=== PATIENT | female | born 1940 | race Caucasian/White ===

== ENCOUNTER 2017-12-13 12:05 | Inpatient (IN) | payer MEDICARE, OTHER, SELFPAY ==
[2017-12-13] VITALS (9 sets, daily range): BP systolic 132–137; BP diastolic 48–84; PULSE 83–112; RESP 18–31; TEMP 36.2–39.3; O2SAT 92–96; BMI 26.8; BMI 26.5
--- NOTE | 2017-12-13 12:09 | NURSING ---
NO OLD EKGS
--- NOTE | 2017-12-13 13:28 | EKG12_ITS ---
Test Reason : CVA Blood Pressure : / mmHG Vent. Rate : 106 BPM Atrial Rate : 106 BPM P-R Int : 156 ms QRS Dur : 120 ms QT Int : 366 ms P-R-T Axes : 067 -48 108 degrees QTc Int : 486 ms Sinus tachycardia Left axis deviation Left ventricular hypertrophy with QRS widening and repolarization abnormality Inferior infarct , age undetermined Abnormal ECG Confirmed by JAMEE MANCINI, DEMOND ([id number]), film editor supervisor FABIAN MERCADO ([id number]) on 12/17/2017 3:22:41 PM Referred By: JUANITO Confirmed By:DEMOND MANCUSO MD
--- NOTE | 2017-12-13 13:29 | CT_ITS ---
STUDY: CTA OF THE BRAIN REASON FOR EXAM: Male, 77 years old. Ataxia, slurred speech, elevated d-dimer. Fever. RADIATION DOSAGE (If Supplied By Facility): CTDIvol = ( 22.71 ) mGy, DLP = ( 1929.88 ) mGycm TECHNIQUE: CT angiography was performed with a multi-detector CT scanner. Data acquisition was obtained from the skull base through the vertex following intravenous administration of 180 ml of Isovue-300. MIP images were reconstructed from the axial data set. Post-processing of the angiographic images was performed, with multiplanar reformation and 3D reconstruction. Individualized dose optimization techniques were used for this CT. COMPARISON: None. FINDINGS: Normal bilateral petrous carotid arteries. Normal right cavernous carotid artery with a normal supraclinoid bifurcation. Normal left cavernous carotid artery with a normal supraclinoid bifurcation. Normal right A1 segments of the anterior cerebral artery. Normal left A1 segments of the anterior cerebral artery. Normal intact anterior communicating artery (ACOM). Normal bilateral A2 segments of the anterior cerebral arteries. Normal right M1 and M2 segments of the middle cerebral arteries, with a normal M1 bifurcation. Normal left M1 and M2 segments of the middle cerebral arteries, with a normal M1 bifurcation. Normal right posterior communicating artery (PCOM). Normal left posterior communicating artery (PCOM). Normal bilateral vertebral arteries. Normal basilar artery with a normal basilar bifurcation. The visualized bilateral superior cerebellar (SCA) arteries are normal. Normal bilateral P1, P2 and visualized P3 segments of the posterior cerebral arteries. There is no demonstrated aneurysm of the [facility]. There is no demonstrated abnormality of the visualized brain. IMPRESSION: Normal [facility] without a demonstrated aneurysm or hemodynamically significant stenosis. Electronically Signed: John Brock MD at 16:22 EDT , Service support , STUDY: CT BRAIN WITHOUT CONTRAST REASON FOR EXAM: Male, 77 years old. Ataxia, slurred speech, elevated d-dimer and fever. RADIATION DOSAGE (If Supplied By Facility): CTDIvol = ( 22.71 ) mGy, DLP = ( 1929.88 ) mGycm TECHNIQUE: Transaxial CT imaging of the brain was performed without administration of intravenous contrast material. Individualized dose optimization techniques were used for this CT. COMPARISON: None. FINDINGS: Normal soft tissue structures. Normal calvarium. Normal size ventricles and extra-axial spaces for the patient's age. Normal white matter tracts of the cerebral hemispheres. Normal basal ganglia and thalami. Normal brainstem. Normal cerebellum. There is no intracranial hemorrhage. There is no large vessel territory ischemia/edema. Normal visualized paranasal sinuses. CT/CTA Head W/WO Contrast IMPRESSION: No CT evident acute intracranial process. Electronically Signed: John Brock MD at 16:16 EDT , Service support ,
--- NOTE | 2017-12-13 13:29 | CT_ITS ---
Procedure: CTA of the neck vasculature. INDICATIONS: Ataxia, slurred speech, elevated d-dimer and fever. TECHNIQUE: Axial CT through the neck vascular are status post uneventful intravenous administration of iodinated contrast. Sagittal and coronal reformats and MIP images were obtained and reviewed. Individualized dose optimization techniques were used for this CT. FINDINGS: Normal 3 vessel arch and origination of the major vessels. There is no evident hemodynamically significant stenosis. No aneurysm or focal ectasia is identified. Incidental note of superior mediastinal pathologic by size adenopathy. Please refer to previously dictated, dedicated CTA of the chest. CT/CTA Neck W/WO Contrast IMPRESSION: No CT evident hemodynamically significant stenosis of carotid vasculature. No aneurysm. No focal ectasia. Electronically Signed: John Brock MD at 16:31 EDT , Service support ,
--- NOTE | 2017-12-13 13:30 | RAD_ITS ---
STUDY: X-RAY CHEST REASON FOR EXAM: Male, 77 years old. Chest pain, fever, slurred speech. TECHNIQUE: Single portable frontal chest. COMPARISON: None. FINDINGS: There is elevation of the right hemidiaphragm of indeterminate chronicity and etiology and of unknown clinical concern. There is prominent multifocal alveolar opacification within the left perihilar location and throughout the left mid lung and left lung base. There is also subtle alveolar opacification within the right medial infrahilar location. There is no evident pneumothorax. There is subtle blunting of the left lateral costophrenic angle. There is moderate cardiac enlargement. Normal visualized pulmonary arteries. Normal visualized aortic arch and descending thoracic aorta. There is diffuse osteopenia without evident acute osseous abnormality. There is no demonstrated abnormality of the visualized soft tissue structures of the upper abdomen. RAD/Chest 1 View (Portable) IMPRESSION: Multifocal bilateral alveolar opacifications consistent with foci of pneumonia and or atelectasis. Potential small left basilar pleural effusion. No pneumothorax. Moderate cardiomegaly versus pericardial fluid collection. Upon further review, findings throughout predominantly lung apices suggesting emphysema. Status post cholecystectomy. Electronically Signed: John Brock MD at 14:18 EDT , Service support ,
--- NOTE | 2017-12-13 13:33 | ED.DCSUM_ITS ---
- ER Visit Summary Date of Service: 12/13/17 Chief Complaint: [] Ataxic gait mild shortness of breath History of Present Illness: The patient is a 77 M [] she reports for the last 2 days she simply cannot walk in a straight fashion she is constantly listing from one side to the other, she indicates that she has had no headache no fever no cough no chest pain or abdominal pain or shortness of breath no numbness paresthesias her symptoms intensified today with a difficulty walking she went to an urgent care center who referred her to the emergency department On arrival to the emergency department she is noted to have a temperature 100.4 her pulse ox is 90% on room air and she declined history of fever COPD asthma DVT PE ME or any cardiopulmonary disease, she is on no medications she had no exposures Physical Examination: [] Her vital signs are as above her blood pressures within normal range she is resting comfortably in the bed her pulse ox is 90% on room air but 94% on 2 L of oxygen her HEENT exam and cranial nerve exam unremarkable the neck is supple the lungs sound clear the heart tones are normal the abdomen soft nontender upper lower extremities unremarkable she has normal strength normal sensation normal cerebellar function to finger-nose [id number], I was a ble to stand her when she stood she was quite ataxic she could not walk but was able to maintain upright position her NIH is 0 Test Results: [] Emergency Department Course and Treatment: [] Does have a fever she has hypoxia on room air given the ataxia in all the above screening labs head CT CTA will be obtained Treatment Plan: [] The patient's CBC chemistry panels are generally unremarkable, her lactate is pending, her chest x-ray shows per radiology signs of cardiomegaly, elevated right hemidiaphragm, possibly bibasilar infiltrates right greater than left and possibly small left pleural effusion, Given the constellation of her symptoms the ataxia hypoxemia low-grade fever, I did order CT head and neck CTA chest, the studies are pending, I have asked the afternoon physicians to check these and arrange for disposition, we did obtain blood and urine cultures and we did start her on IV antibiotics Rocephin and azithromycin she understands need for admission and she agrees Disposition: [] Admit pending results of CT scans Impression: [] Ataxia, bibasilar pneumonia, hypoxemia room air This note was generated with [employer] dictation software. It may contain incorrect words, spelling, and punctuation that were not noted in review of the chart prior to signing ED Disposition - Plan for ED Patient: Chief Complaint: Neuro S/Sx Referrals: Chauncey Lu DO [Primary Care Provider] -
[2017-12-13 13:49] LABS: Absolute Lymphocyte Count 0.94 X10^3/ul (0.83-4.51); Absolute Neutrophil Count 5.7 X10^3/uL (2.0-7.7); Basophil# 0.02 X10^3/uL; Basophil% 0.3 % (0-1); Hematocrit 43.6 % (40-54); Hemoglobin 14.3 g/dl (13.0-16.5); Lymphocyte # 0.94 X10^3/ul (4.0); Lymphocyte % 12.5 % (19-41); Mean Corp Hgb Conc 32.8 g/gl (32-36); Mean Corpuscular Hgb 28.9 pg (27.0-32.0); Mean Corpuscular Volume 88.1 fL (80-94); Mean Platelet Vol. 10.6 fl (6.2-12.0); Monocyte# 0.91 X10^3/uL; Monocyte% 12.1 % (0-10); Neutrophil # 5.66 X10^3/uL (2.7-7.7); Neutrophil % 75.1 % (47-70); Platelet Count 133 K/mm3 (150-450); RBC Distribution Width SD 45.2 fl (35.1-43.9); Red Blood Count 4.95 M/mm3 (4.6-6.2); White Blood Count 7.5 K/mm3 (4.4-11.0)
[2017-12-13 14:00] LABS: D-Dimer Quantitative (DVT/PE) 1.43 FEU/ug/m (0.27-0.49)
[2017-12-13 14:01] LABS: Anion Gap 9 (5-15); BUN 14 mg/dL (7-18); BUN/Creat Ratio 17.7 RATIO (10-20); Calcium,Total 8.3 mg/dL (8.5-10.1); Chloride 101 mmol/L (98-107); Creatinine, Serum 0.79 mg/dL (0.70-1.30); EST Glomerular Filtration Rate 101 mL/min (>60); Est Glom Filt Rate - Afr Amer 122 mL/min (>60); Estimated Creatinine Clearance 50.58 ml/min; Glucose 114 mg/dL (74-106); Potassium 3.5 mmol/L (3.5-5.1); Sodium Level 133 mmol/L (136-145)
--- NOTE | 2017-12-13 14:02 | ED.RN ---
ddimer 1.[address] called from the lab. dr bacayeed aware
[2017-12-13] MEDS: 0.9% Normal Saline 1,000 ML 15 ML IV (14:21)
--- NOTE | 2017-12-13 14:29 | CT_ITS ---
STUDY: CTA CHEST REASON FOR EXAM: Male, 77 years old. Ataxia, slurred speech, elevated d-dimer and fever. RADIATION DOSAGE (If Supplied By Facility): CTDIvol = ( 22.71 ) mGy, DLP = ( 1929.88 ) mGycm TECHNIQUE: The examination was performed with the intravenous administration of 100mL ml of Isovue 370 contrast material. Post-processing of the angiographic images was performed, with multiplanar reformation and 3D reconstruction. Individualized dose optimization techniques were used for this CT. COMPARISON: None. FINDINGS: Normal enhancement of the main pulmonary artery and right and left pulmonary arteries out to third order branching. Normal thoracic aorta and visualized great vessels. There is no demonstrated aortic dissection. Normal heart and pericardium. There are multistation mediastinal lymph nodes. Lymph nodes within the retrocaval-pretracheal location, aorticopulmonary window region and precarinal region are mildly pathologic by size criteria. There are borderline pathologic by size criteria left hilar lymph nodes. Normal visualized trachea and bronchi. There are dense perihilar consolidations potentially representing pneumonia and/or some component of atelectasis. The left perihilar consolidation does appear somewhat mass-like. There is no pleural effusion. There is no pneumothorax. Normal osseous structures. Throughout visualized upper abdomen there are findings consistent with mild bilateral adrenal hyperplasia and a 1.8 cm probable complicated right renal cortical cyst. Definitive characterization can be performed with sonography if felt clinically indicated. CT/CTA Chest W/WO Contrast IMPRESSION: No CT evidence of pulmonary embolism out to third order branching. No demonstrated vascular dissection. Dense perihilar consolidations with somewhat mass-like appearance to the left perihilar consolidation. Follow-up to exclude neoplasm highly recommended. Mildly pathologic by size criteria mediastinal and left hilar lymph nodes. These may simply be reactive. However, follow-up again recommended to assess stability. No pleural effusion. No pneumothorax. Electronically Signed: John Brock MD at 16:10 EDT , Service support ,
[2017-12-13] MEDS: Ipratropium/Albuterol Sulfate 3 ML AMPUL.NEB INHALATION ×2 (15:27→20:21)
[2017-12-13 16:03] LABS: Lactic Acid 0.9 mmol/L (0.4-2.0)
[2017-12-13] MEDS: Acetaminophen 325 MG Tablet 650 MG PO (16:31)
--- NOTE | 2017-12-13 16:38 | NURSING ---
MED SURG OLEE PNEUMONIA, HYPOXIA
--- NOTE | 2017-12-13 17:29 | PCM.HP.STD ---
Problem List (1) Pneumonia Status: Acute Qualifiers: Pneumonia type: due to unspecified organism Laterality: left Lung location: lower lobe of lung Qualified Code(s): J18.1 - Lobar pneumonia, unspecified organism History of Present Illness Date of Admission: 12/13/17 Chief Complaint: cough, malaise and SOB The patient is a 77 year old female who presents with 1 week h/o of feeling unwell. Over the last few days this has progressively worsened with increasing exertional dyspnea and easy fatigability and impaired exercise tolerance. At this time she is dyspneic and SOB even at rest. She has had a dry non productive cough, fever, malaise, loss of appetite. She denies any chest pain, denies any ill contacts or recent travel. has a pet dog and other than that no exposure to any farm animals. Patient does not not smoke however smoked in the past. Also for the last few days patient has been experiencing ataxia of gait and has had increasingly difficulty with walking. She denies any slurring of speech, dysphagia, diplopia, blurring of vision, extremity weakness or numbness[] Past Medical History Allergies No Known Allergies Allergy (Verified 12/13/17 12:11) Home Medications: Ambulatory Orders Medication Instructions Recorded Ranitidine [Zantac] 300 mg PO DAILY 12/13/17 Smoking Status: Never smoker Tobacco Use: Non-smoker Review of Systems Constitutional: Reports: Anorexia, Chills, Fever, Night Sweats, Malaise, Weakness, Fatigue Cardiovascular: Denies: Chest Pain, Claudication, Edema, Orthopnea, Syncope Gastrointestinal: Denies: Abdominal Pain Genitourinary: Reports: Frequency, Incontinence, Urgency Neurological: Reports: Balance problems. Denies: Blurred vision, Double vision, Change in Speech, Slurred speech, Confusion, Difficulty swallowing, Focal weakness, Headaches, Incoordination, Numbness, Tremor, Seizures Psychiatric: Denies: Anxiety Comment: all other systems reviewed and are negative VTE Information - Inpt Only VTE Present on Admission: No Patient Problems: Active and Suspected Problems Pneumonia (Acute) - Physical Exam General: Alert, Oriented x3, Cooperative, - - acutely ill looking, dyspneic HEENT: Atraumatic, Normocephalic Oral: Dry Mucosa Neck: Supple, No JVD, No Nodes Lungs: - - reduced chest expansion on the left, lower zone anteriorly is significantly reduced breath sounds and air entry, there is a fixed expiratory wheeze/rhonchi in this segment as well, vocal fremitus here is reduced as well Cardiovascular: Regular rate, Regular Rhythm, Normal S1, Normal S2, No murmurs, No Ectopic Activity Abdomen: Bowel Sounds Present, Soft, Non Tender, Non-Distended, No Hepato-splenomegaly Skin: No rashes Musculoskeletal: No Muscle Wasting Lymphatic: No Cervical, Supraclavicular, or Inguinal Adenopathy Neurological: Cranial nerves II-XII grossly intact, Motor Exam 5/5 strength throughout, - - gait not tested at this time, dysmetria positive in the LUE, impaired finger to nose and heel to patel testing on the left, has dysdiadokhokinesia worse on the left, DTR increased in the LUE Psych/Mental Status: Normal Affect, Appropriate, Alert and oriented to time, place, person, mood and affect Vital Signs Temp Pulse Resp BP Pulse Ox 102.7 F H 95 31 H 135/49 H 95 12/13/17 16:30 12/13/17 16:30 12/13/17 16:30 12/13/17 16:30 12/13/17 16:30 Oxygen Flow Rate (L/min) 2 Oxygen Delivery Method Nasal Cannula Weight: 68.674 kg Body Mass Index (BMI) 26.8 Laboratory Tests Past 24 Hrs 12/13/17 12/13/17 12/13/17 12:13 12:13 12:13 WBC 7.5 RBC 4.95 Hgb 14.3 Hct 43.6 MCV 88.1 MCH 28.9 MCHC 32.8 RDW 14.0 RDW Differential 45.2 H Plt Count 133 L MPV 10.6 Immature Gran % (Auto) 0.000 Neut % (Auto) 75.1 H Lymph % (Auto) 12.5 L [place] % (Auto) 12.1 H Eos % (Auto) 0.0 Baso % (Auto) 0.3 Absolute Neuts (auto) 5.7 Absolute Lymphs (auto) 0.94 Total Counted Not Reportable D-Dimer Quant (PE/DVT) 1.43 H* Sodium 133 L Potassium 3.5 Chloride 101 Carbon Dioxide 23.0 Anion Gap 9 BUN 14 Creatinine 0.79 Estim Creat Clear Calc 50.58 Est GFR (MDRD) Af Amer 122 Est GFR (MDRD) Non-Af 101 BUN/Creatinine Ratio 17.7 Glucose 114 H Lactic Acid Calcium 8.3 L Troponin I < 0.015 B-Natriuretic Peptide 12/13/17 12/13/17 12:13 15:26 WBC RBC Hgb Hct MCV MCH MCHC RDW RDW Differential Plt Count MPV Immature Gran % (Auto) Neut % (Auto) Lymph % (Auto) [place] % (Auto) Eos % (Auto) Baso % (Auto) Absolute Neuts (auto) Absolute Lymphs (auto) Total Counted D-Dimer Quant (PE/DVT) Sodium Potassium Chloride Carbon Dioxide Anion Gap BUN Creatinine Estim Creat Clear Calc Est GFR (MDRD) Af Amer Est GFR (MDRD) Non-Af BUN/Creatinine Ratio Glucose Lactic Acid 0.9 Calcium Troponin I B-Natriuretic Peptide 143.0 H Assessment/Plan All Active Problems Pneumonia (Acute) 1. Possible Community Acquired Bacterial Pneumonia. I am concerned however based on clinical and exam findings and CT chest radiological findings that there may actually be an endobronchial obstruction causing atelectasis/collapse of a left segmental lobe - focal reduced BS, reduced vocal fremitus, focal fixed monophonic wheezing/rhonchi, consolidation on CT without air bronchograms. Will consult pulmonology. I believe we should have a lower threshold for bronchoscopy in this patient. Will continue on IV antibiotics for now, check sed rate, CRP and procalcitonin. Mucolytics, bronchodilators, ? chest physiotherapy 2. New onset cerebellar symptoms with ataxia and incoordination. Uncertain if related to # 1 above. Will order brain MRI with and without contrast Consult neurology. 3. Acute hypoxic respiratory failure secondary to # 1 above Continue supplemental O2. Pulmonology to evaluate Code Visit Inpatient E&M: 99151 Init Hosp L3
[2017-12-13 18:40] LABS: Mucous, Urine 0 SEEN /hpf (<or=2+); Red Blood Cells-Urine 0 SEEN /hpf (0-5)
[2017-12-13 18:43] LABS: Color, Urine Yellow (Yellow); Glucose, Dipstick Normal (Normal); Ketone-Dipstick 5 mg/dl (Negative); Leukocyte Esterase-Dipstick 25 /ul (Negative); Nitrite-Dipstick Positive (Negative); Occult Blood-Urine 150 /ul (Negative); Protein-Dipstick 30 mg/dl (Negative); Urine Bilirubin Dipstick Negative (Negative); Urine Clarity Clear (Clear); Urine Urobilinogen Normal (Normal)
--- NOTE | 2017-12-13 18:49 | MRI_ITS ---
STUDY: MRI BRAIN WITH AND WITHOUT CONTRAST REASON FOR EXAM: Male, 77 years old. CVA, unsteady gait. TECHNIQUE: Standardized multiplanar fat and water weighted pulse sequences were obtained. 7 ml of Gadavist contrast material was administered intravenously for the contrast portion of the examination. COMPARISON: CTA head 12/13/2017. FINDINGS: There is mild cerebral atrophy with widening of the extra-axial spaces and ventricular dilatation. Normal white matter tracts of the supratentorial brain. Normal bilateral basal ganglia. Normal thalami. There is no extra-axial fluid accumulation. Normal flow voids within the major intracranial circulation suggesting patency by spin echo criteria. There is no enhancing intra-axial or extra-axial abnormality. Normal sella turcica, pituitary gland, infundibular stalk, optic chiasm and hypothalamus. Normal tectal plate and pineal gland. Normal midbrain, donnie and medulla. Normal cerebellum. Normal basal cisterns. Normal bilateral temporal bones. Normal bilateral internal auditory canals. No demonstrated orbital abnormality, within the constraints of a routine brain study. Normal visualized paranasal sinuses. Normal calvarium and skull base. Normal visualized soft tissue structures. Normal visualized upper cervical spine. MRI/Brain W/WO Contrast IMPRESSION: Normal unenhanced and enhanced MRI of the brain. Electronically Signed: Laila Crabtree MD at 20:46 EDT Tel , Service support ,
[2017-12-13 18:52] LABS: Bacteria 1+ /hpf (None Seen); Squamous Epithelial Cells - UA 0-5 SEEN /hpf (0-5); White Blood Cells 0-5 SEEN /hpf (0-5)
--- NOTE | 2017-12-13 20:14 | NURSING ---
PATIENT RETURNED FROM MRI NOW.
[2017-12-13] MEDS: Acetylcysteine 800 MG/4 ML VIAL.NEB. 400 MG INHALATION (20:21)
[2017-12-13 20:33] LABS: Erythrocyte Sedimentation Rate 11 mm/hr (0-20)
[2017-12-13] MEDS: guaiFENesin 1,200 MG Tablet 1200 MG PO (21:05)
[2017-12-14] VITALS (21 sets, daily range): BP systolic 123–154; BP diastolic 53–75; PULSE 89–134; RESP 20–30; TEMP 36.4–38.8; O2SAT 93–96
[2017-12-14] MEDS: Ipratropium/Albuterol Sulfate 3 ML AMPUL.NEB INHALATION ×4 (01:29→19:36)
[2017-12-14] MEDS: Acetylcysteine 800 MG/4 ML VIAL.NEB. 400 MG INHALATION ×3 (01:29→14:20)
--- NOTE | 2017-12-14 01:29 | CPS ---
Pt seemed to have a panic attack from aerosol mask. Increased HR and RR. Pt calmed down after treatment was finished. Mouthpiece to be used.
[2017-12-14] MEDS: LORazepam 1 MG Tablet PO (03:33)
[2017-12-14 05:27] LABS: Absolute Lymphocyte Count 0.67 X10^3/ul (0.83-4.51); Absolute Neutrophil Count 6.1 X10^3/uL (2.0-7.7); Basophil# 0.02 X10^3/uL; Basophil% 0.3 % (0-1); Hematocrit 41.5 % (37-47); Hemoglobin 13.5 g/dl (12.0-15.0); Lymphocyte # 0.67 X10^3/ul (4.0); Mean Corp Hgb Conc 32.5 g/gl (32-36); Mean Corpuscular Hgb 28.7 pg (27.0-32.0); Mean Corpuscular Volume 88.3 fL (81-99); Mean Platelet Vol. 10.2 fl (6.2-12.0); Monocyte# 0.71 X10^3/uL; Monocyte% 9.5 % (0-10); Neutrophil # 6.07 X10^3/uL (2.7-7.7); Neutrophil % 81.1 % (47-70); Platelet Count 121 K/mm3 (150-450); RBC Distribution Width SD 45.6 fl (35.1-43.9); White Blood Count 7.5 K/mm3 (4.4-11.0)
[2017-12-14 05:38] LABS: POSITIVE COUNT NO; POSITIVE DIFFERENTIAL NO; POSITIVE MORPHOLOGY NO
--- NOTE | 2017-12-14 08:10 | PCM.CONS.GEN ---
Reason for Consult Date of Consultation: 12/14/17 Reason for Consultation: Left segmental lobar collapse, possible endobronchial obstruction History of Present Illness: The patient is a 77-year-old female, with a history as outlined below, who presented to the emergency department on December 13 with ataxia and shortness of breath and cough. The patient reports that her cough is worsened over the last several days, and although it is moist in quality, she has been unable to produce any sputum. She denies a history of hemoptysis. She denies a personal history of smoking, but does report lifelong secondhand smoke exposure. The patient does report that over the days leading up to her hospitalization, she has been unstable on her feet with frequent coughing paroxysms. She does report a loss in appetite, but there has been no significant weight loss. On presentation to the emergency department, the patient was noted to be febrile, tachycardic and tachypneic. Laboratory evaluation revealed no evidence of a leukocytosis. She had an elevated d-dimer at 1.43. Chemistry profile was largely unremarkable. Serum lactate was within normal limits. Troponin was negative. Urinalysis was positive for nitrites and leukocyte esterase with 1+ bacteria noted. CTA head and neck was completed and revealed no significant pathology. Due to the patient's shortness of breath, a CTA chest was obtained which revealed no evidence for pulmonary embolism. Multiple mediastinal lymph nodes were identified with borderline size criteria. There is also evidence of a left perihilar consolidation with possible associated atelectasis. The patient was subsequently started on ceftriaxone and azithromycin. She was admitted to the progressive care unit for ongoing management. Last evening, the patient did spike a fever to 102.7 ?F. However, at the present time, she is afebrile. Past Medical History Past Medical History (Chronic Problems): Chronic Problems Balance problem (Chronic) Allergies No Known Allergies Allergy (Verified 12/13/17 12:11) Home Medications: Ambulatory Orders Medication Instructions Recorded Ranitidine [Zantac] 300 mg PO DAILY 12/13/17 Smoking Status: Never smoker Tobacco Use: Non-smoker Review of Systems Constitutional: Reports: Malaise, Weakness, Fatigue Eyes: Denies: Blurred vision, Double vision HEENT: Denies: Head Aches, Sinus Congestion, Sinus Drainage Cardiovascular: Denies: Chest Pain, Palpitations Respiratory: Reports: Cough, Shortness of Breath. Denies: Sputum production Gastrointestinal: Denies: Abdominal Pain, Nausea, Vomiting Genitourinary: Denies: Dysuria Skin: Denies: Rash, Wounds Neurological: Reports: Balance problems Psychiatric: Denies: Anxiety, Depression, Homicidal Ideations, Suicidal Ideations Hematologic/ Lymphatic: Reports: Adenopathy Patient Problems: Active and Suspected Problems Pneumonia (Acute) Objective: The patient's most recent lab work, culture data and imaging studies have all been personally reviewed. - Physical Exam General: Alert, Cooperative, No apparent distress HEENT: Atraumatic, PERRLA, Normocephalic Oral: No Gingival or Mucosal Lesions/ Ulcerations Neck: Supple, No Nodes, Trachea Midline Lungs: - - Scant rhonchi with frequent coughing paroxysms and associated expiratory wheeze. Cardiovascular: Regular rate, Regular Rhythm, Normal S1, Normal S2, No murmurs Abdomen: Bowel Sounds Present, Soft, Non Tender, Non-Distended Extremities: No clubbing, No cyanosis, No edema Skin: No breakdown Musculoskeletal: No Tenderness to Palpation of Joints or Extremities Lymphatic: No Cervical, Supraclavicular, or Inguinal Adenopathy Neurological: Cranial nerves II-XII grossly intact, Neuro grossly intact Psych/Mental Status: Normal Affect, Appropriate Vital Signs Temp Pulse Resp BP Pulse Ox 97.9 F 97 28 H 123/54 H 96 12/14/17 06:57 12/14/17 06:58 12/14/17 06:57 12/14/17 06:57 12/14/17 06:57 Oxygen Flow Rate (L/min) 2 Oxygen Delivery Method Nasal Cannula Weight: 149 lb 11.102 oz Body Mass Index (BMI) 26.5 Intake and Output for Last 24 Hours 12/12/17 12/13/17 12/14/17 23:59 23:59 23:59 Intake Total 520 / 520 Balance 520 / 520 Laboratory Tests Past 24 Hrs 12/13/17 12/13/17 12/13/17 12:13 12:13 12:13 WBC 7.5 RBC 4.95 Hgb 14.3 Hct 43.6 MCV 88.1 MCH 28.9 MCHC 32.8 RDW 14.0 RDW Differential 45.2 H Plt Count 133 L MPV 10.6 Immature Gran % (Auto) 0.000 Neut % (Auto) 75.1 H Lymph % (Auto) 12.5 L [place] % (Auto) 12.1 H Eos % (Auto) 0.0 Baso % (Auto) 0.3 Absolute Neuts (auto) 5.7 Absolute Lymphs (auto) 0.94 Total Counted Not Reportable ESR D-Dimer Quant (PE/DVT) 1.43 H* Sodium 133 L Potassium 3.5 Chloride 101 Carbon Dioxide 23.0 Anion Gap 9 BUN 14 Creatinine 0.79 Estim Creat Clear Calc 50.58 Est GFR (MDRD) Af Amer 122 Est GFR (MDRD) Non-Af 101 BUN/Creatinine Ratio 17.7 Glucose 114 H Lactic Acid Calcium 8.3 L Troponin I < 0.015 C-React Prot Ext Range B-Natriuretic Peptide Urine Color Urine Clarity Urine pH Ur Specific [place] Urine Protein Urine Glucose (UA) Urine Ketones Urine Occult Blood Urine Nitrite Urine Bilirubin Urine Urobilinogen Ur Leukocyte Esterase Urine RBC Urine WBC Ur Squamous Epith Cells Urine Bacteria Urine Mucus Miscellaneous Test 12/13/17 12/13/17 12/13/17 12:13 12:13 15:26 WBC RBC Hgb Hct MCV MCH MCHC RDW RDW Differential Plt Count MPV Immature Gran % (Auto) Neut % (Auto) Lymph % (Auto) [place] % (Auto) Eos % (Auto) Baso % (Auto) Absolute Neuts (auto) Absolute Lymphs (auto) Total Counted ESR D-Dimer Quant (PE/DVT) Sodium Potassium Chloride Carbon Dioxide Anion Gap BUN Creatinine Estim Creat Clear Calc Est GFR (MDRD) Af Amer Est GFR (MDRD) Non-Af BUN/Creatinine Ratio Glucose Lactic Acid 0.9 Calcium Troponin I C-React Prot Ext Range 83.90 H B-Natriuretic Peptide 143.0 H Urine Color Urine Clarity Urine pH Ur Specific [place] Urine Protein Urine Glucose (UA) Urine Ketones Urine Occult Blood Urine Nitrite Urine Bilirubin Urine Urobilinogen Ur Leukocyte Esterase Urine RBC Urine WBC Ur Squamous Epith Cells Urine Bacteria Urine Mucus Miscellaneous Test 12/13/17 12/13/17 12/13/17 18:34 20:20 20:20 WBC RBC Hgb Hct MCV MCH MCHC RDW RDW Differential Plt Count MPV Immature Gran % (Auto) Neut % (Auto) Lymph % (Auto) [place] % (Auto) Eos % (Auto) Baso % (Auto) Absolute Neuts (auto) Absolute Lymphs (auto) Total Counted ESR 11 D-Dimer Quant (PE/DVT) Sodium Potassium Chloride Carbon Dioxide Anion Gap BUN Creatinine Estim Creat Clear Calc Est GFR (MDRD) Af Amer Est GFR (MDRD) Non-Af BUN/Creatinine Ratio Glucose Lactic Acid Calcium Troponin I C-React Prot Ext Range B-Natriuretic Peptide Urine Color Yellow Urine Clarity Clear Urine pH 5.0 Ur Specific [place] 1.010 Urine Protein 30 H Urine Glucose (UA) Normal Urine Ketones 5 H Urine Occult Blood 150 H Urine Nitrite Positive H Urine Bilirubin Negative Urine Urobilinogen Normal Ur Leukocyte Esterase 25 H Urine RBC 0 SEEN Urine WBC 0-5 SEEN Ur Squamous Epith Cells 0-5 SEEN Urine Bacteria 1+ Urine Mucus 0 SEEN Miscellaneous Test Pending 12/14/17 05:10 WBC 7.5 RBC 4.70 Hgb 13.5 Hct 41.5 MCV 88.3 MCH 28.7 MCHC 32.5 RDW 14.0 RDW Differential 45.6 H Plt Count 121 L MPV 10.2 Immature Gran % (Auto) 0.100 Neut % (Auto) 81.1 H Lymph % (Auto) 9.0 L [place] % (Auto) 9.5 Eos % (Auto) 0.0 Baso % (Auto) 0.3 Absolute Neuts (auto) 6.1 Absolute Lymphs (auto) 0.67 L Total Counted Not Reportable ESR D-Dimer Quant (PE/DVT) Sodium Potassium Chloride Carbon Dioxide Anion Gap BUN Creatinine Estim Creat Clear Calc Est GFR (MDRD) Af Amer Est GFR (MDRD) Non-Af BUN/Creatinine Ratio Glucose Lactic Acid Calcium Troponin I C-React Prot Ext Range B-Natriuretic Peptide Urine Color Urine Clarity Urine pH Ur Specific [place] Urine Protein Urine Glucose (UA) Urine Ketones Urine Occult Blood Urine Nitrite Urine Bilirubin Urine Urobilinogen Ur Leukocyte Esterase Urine RBC Urine WBC Ur Squamous Epith Cells Urine Bacteria Urine Mucus Miscellaneous Test Clinical Impression(s) from Imaging Studies Head CTA 12/13/17 13:29 IMPRESSION: No CT evident acute intracranial process. Electronically Signed: John Brock MD at 16:16 EDT , Service support , Neck CTA 12/13/17 13:29 IMPRESSION: No CT evident hemodynamically significant stenosis of carotid vasculature. No aneurysm. No focal ectasia. Electronically Signed: John Brock MD at 16:31 EDT , Service support , Chest X-Ray 12/13/17 13:30 IMPRESSION: Multifocal bilateral alveolar opacifications consistent with foci of pneumonia and or atelectasis. Potential small left basilar pleural effusion. No pneumothorax. Moderate cardiomegaly versus pericardial fluid collection. Upon further review, findings throughout predominantly lung apices suggesting emphysema. Status post cholecystectomy. Electronically Signed: John Brock MD at 14:18 EDT , Service support , Chest CTA 12/13/17 14:29 IMPRESSION: No CT evidence of pulmonary embolism out to third order branching. No demonstrated vascular dissection. Dense perihilar consolidations with somewhat mass-like appearance to the left perihilar consolidation. Follow-up to exclude neoplasm highly recommended. Mildly pathologic by size criteria mediastinal and left hilar lymph nodes. These may simply be reactive. However, follow-up again recommended to assess stability. No pleural effusion. No pneumothorax. Electronically Signed: John Brock MD at 16:10 EDT , Service support , Brain MRI 12/13/17 18:49 IMPRESSION: Normal unenhanced and enhanced MRI of the brain. Electronically Signed: Laila Crabtree MD at 20:46 EDT Tel , Service support , Assessment/Plan All Active Problems Pneumonia (Acute) RECOMMENDATIONS: 1. Agree with antibiotics, pending infectious workup. 2. Check respiratory viral panel, along with strep and urine Legionella antigens. 3. We will add chest physiotherapy/PEP in hopes that this will assist the patient in expectorating sputum, which should be sent for culture. 4. Wean supplemental oxygen to maintain saturations at or above 90%. 5. There is no indication for emergent bronchoscopy. Recommend that the patient complete a treatment course of antibiotics, after which time, a repeat CT chest should be obtained in approximately 6 weeks. If there is continued radiographic abnormality noted in the left hilar region, would then proceed with bronchoscopy. IMPRESSIONS: 1. Acute hypoxic respiratory insufficiency Likely secondary to underlying pulmonary infectious process. The patient presented with a fever and has had a new/worsening cough, raising the concern for community-acquired pneumonia. She is currently on appropriate antibiotics. We will also plan to check a strep and urine Legionella antigen, along with a full respiratory viral panel. Will add chest physiotherapy in hopes that this will assist the patient in expectorating sputum, which I recommend should be sent for culture. Continue to wean supplemental oxygen to maintain saturations at or above 90%. 2. Left perihilar community-acquired pneumonia/nonspecific mediastinal lymphadenopathy The radiographic findings noted on CT chest could certainly be vaccine customer representative of an underlying pulmonary infectious process, for which the patient is currently on treatment. Would recommend repeating a CT chest in approximately 4-6 weeks to document resolution. If the patient continues to have the aforementioned radiographic abnormalities, would then consider bronchoscopy at that time. 3. Ataxia Of unclear etiology. MRI brain revealed no pathology. Neurology is to evaluate patient. This note was generated with [employer] dictation software. It may contain incorrect words, spelling, and punctuation that were not noted in checking the note before signing. Code Visit Inpatient E&M: 44577 Init Hosp L3
--- NOTE | 2017-12-14 08:25 | CON.PCM_ITS ---
Reason for Consult Date of Consultation: 12/14/17 Reason for Consultation: Left segmental lobar collapse, possible endobronchial obstruction History of Present Illness: The patient is a 77-year-old female, with a history as outlined below, who presented to the emergency department on December 13 with ataxia and shortness of breath and cough. The patient reports that her cough is worsened over the last several days, and although it is moist in quality, she has been unable to produce any sputum. She denies a history of hemoptysis. She denies a personal history of smoking, but does report lifelong secondhand smoke exposure. The patient does report that over the days leading up to her hospitalization, she has been unstable on her feet with frequent coughing paroxysms. She does report a loss in appetite, but there has been no significant weight loss. On presentation to the emergency department, the patient was noted to be febrile, tachycardic and tachypneic. Laboratory evaluation revealed no evidence of a leukocytosis. She had an elevated d-dimer at 1.43. Chemistry profile was largely unremarkable. Serum lactate was within normal limits. Troponin was negative. Urinalysis was positive for nitrites and leukocyte esterase with 1+ bacteria noted. CTA head and neck was completed and revealed no significant pathology. Due to the patient's shortness of breath, a CTA chest was obtained which revealed no evidence for pulmonary embolism. Multiple mediastinal lymph nodes were identified with borderline size criteria. There is also evidence of a left perihilar consolidation with possible associated atelectasis. The patient was subsequently started on ceftriaxone and azithromycin. She was admitted to the progressive care unit for ongoing management. Last evening, the patient did spike a fever to 102.7 ?F. However, at the present time, she is afebrile. Past Medical History Past Medical History (Chronic Problems): Chronic Problems Balance problem (Chronic) Allergies No Known Allergies Allergy (Verified 12/13/17 12:11) Home Medications: Ambulatory Orders Medication Instructions Recorded Ranitidine [Zantac] 300 mg PO DAILY 12/13/17 Smoking Status: Never smoker Tobacco Use: Non-smoker Review of Systems Constitutional: Reports: Malaise, Weakness, Fatigue Eyes: Denies: Blurred vision, Double vision HEENT: Denies: Head Aches, Sinus Congestion, Sinus Drainage Cardiovascular: Denies: Chest Pain, Palpitations Respiratory: Reports: Cough, Shortness of Breath. Denies: Sputum production Gastrointestinal: Denies: Abdominal Pain, Nausea, Vomiting Genitourinary: Denies: Dysuria Skin: Denies: Rash, Wounds Neurological: Reports: Balance problems Psychiatric: Denies: Anxiety, Depression, Homicidal Ideations, Suicidal Ideations Hematologic/ Lymphatic: Reports: Adenopathy Patient Problems: Active and Suspected Problems Pneumonia (Acute) Objective: The patient's most recent lab work, culture data and imaging studies have all been personally reviewed. - Physical Exam General: Alert, Cooperative, No apparent distress HEENT: Atraumatic, PERRLA, Normocephalic Oral: No Gingival or Mucosal Lesions/ Ulcerations Neck: Supple, No Nodes, Trachea Midline Lungs: - - Scant rhonchi with frequent coughing paroxysms and associated expiratory wheeze. Cardiovascular: Regular rate, Regular Rhythm, Normal S1, Normal S2, No murmurs Abdomen: Bowel Sounds Present, Soft, Non Tender, Non-Distended Extremities: No clubbing, No cyanosis, No edema Skin: No breakdown Musculoskeletal: No Tenderness to Palpation of Joints or Extremities Lymphatic: No Cervical, Supraclavicular, or Inguinal Adenopathy Neurological: Cranial nerves II-XII grossly intact, Neuro grossly intact Psych/Mental Status: Normal Affect, Appropriate Vital Signs Temp Pulse Resp BP Pulse Ox 97.9 F 97 28 H 123/54 H 96 12/14/17 06:57 12/14/17 06:58 12/14/17 06:57 12/14/17 06:57 12/14/17 06:57 Oxygen Flow Rate (L/min) 2 Oxygen Delivery Method Nasal Cannula Weight: 149 lb 11.102 oz Body Mass Index (BMI) 26.5 Intake and Output for Last 24 Hours 12/12/17 12/13/17 12/14/17 23:59 23:59 23:59 Intake Total 520 / 520 Balance 520 / 520 Laboratory Tests Past 24 Hrs 12/13/17 12/13/17 12/13/17 12:13 12:13 12:13 WBC 7.5 RBC 4.95 Hgb 14.3 Hct 43.6 MCV 88.1 MCH 28.9 MCHC 32.8 RDW 14.0 RDW Differential 45.2 H Plt Count 133 L MPV 10.6 Immature Gran % (Auto) 0.000 Neut % (Auto) 75.1 H Lymph % (Auto) 12.5 L [place] % (Auto) 12.1 H Eos % (Auto) 0.0 Baso % (Auto) 0.3 Absolute Neuts (auto) 5.7 Absolute Lymphs (auto) 0.94 Total Counted Not Reportable ESR D-Dimer Quant (PE/DVT) 1.43 H* Sodium 133 L Potassium 3.5 Chloride 101 Carbon Dioxide 23.0 Anion Gap 9 BUN 14 Creatinine 0.79 Estim Creat Clear Calc 50.58 Est GFR (MDRD) Af Amer 122 Est GFR (MDRD) Non-Af 101 BUN/Creatinine Ratio 17.7 Glucose 114 H Lactic Acid Calcium 8.3 L Troponin I < 0.015 C-React Prot Ext Range B-Natriuretic Peptide Urine Color Urine Clarity Urine pH Ur Specific [place] Urine Protein Urine Glucose (UA) Urine Ketones Urine Occult Blood Urine Nitrite Urine Bilirubin Urine Urobilinogen Ur Leukocyte Esterase Urine RBC Urine WBC Ur Squamous Epith Cells Urine Bacteria Urine Mucus Miscellaneous Test 12/13/17 12/13/17 12/13/17 12:13 12:13 15:26 WBC RBC Hgb Hct MCV MCH MCHC RDW RDW Differential Plt Count MPV Immature Gran % (Auto) Neut % (Auto) Lymph % (Auto) [place] % (Auto) Eos % (Auto) Baso % (Auto) Absolute Neuts (auto) Absolute Lymphs (auto) Total Counted ESR D-Dimer Quant (PE/DVT) Sodium Potassium Chloride Carbon Dioxide Anion Gap BUN Creatinine Estim Creat Clear Calc Est GFR (MDRD) Af Amer Est GFR (MDRD) Non-Af BUN/Creatinine Ratio Glucose Lactic Acid 0.9 Calcium Troponin I C-React Prot Ext Range 83.90 H B-Natriuretic Peptide 143.0 H Urine Color Urine Clarity Urine pH Ur Specific [place] Urine Protein Urine Glucose (UA) Urine Ketones Urine Occult Blood Urine Nitrite Urine Bilirubin Urine Urobilinogen Ur Leukocyte Esterase Urine RBC Urine WBC Ur Squamous Epith Cells Urine Bacteria Urine Mucus Miscellaneous Test 12/13/17 12/13/17 12/13/17 18:34 20:20 20:20 WBC RBC Hgb Hct MCV MCH MCHC RDW RDW Differential Plt Count MPV Immature Gran % (Auto) Neut % (Auto) Lymph % (Auto) [place] % (Auto) Eos % (Auto) Baso % (Auto) Absolute Neuts (auto) Absolute Lymphs (auto) Total Counted ESR 11 D-Dimer Quant (PE/DVT) Sodium Potassium Chloride Carbon Dioxide Anion Gap BUN Creatinine Estim Creat Clear Calc Est GFR (MDRD) Af Amer Est GFR (MDRD) Non-Af BUN/Creatinine Ratio Glucose Lactic Acid Calcium Troponin I C-React Prot Ext Range B-Natriuretic Peptide Urine Color Yellow Urine Clarity Clear Urine pH 5.0 Ur Specific [place] 1.010 Urine Protein 30 H Urine Glucose (UA) Normal Urine Ketones 5 H Urine Occult Blood 150 H Urine Nitrite Positive H Urine Bilirubin Negative Urine Urobilinogen Normal Ur Leukocyte Esterase 25 H Urine RBC 0 SEEN Urine WBC 0-5 SEEN Ur Squamous Epith Cells 0-5 SEEN Urine Bacteria 1+ Urine Mucus 0 SEEN Miscellaneous Test Pending 12/14/17 05:10 WBC 7.5 RBC 4.70 Hgb 13.5 Hct 41.5 MCV 88.3 MCH 28.7 MCHC 32.5 RDW 14.0 RDW Differential 45.6 H Plt Count 121 L MPV 10.2 Immature Gran % (Auto) 0.100 Neut % (Auto) 81.1 H Lymph % (Auto) 9.0 L [place] % (Auto) 9.5 Eos % (Auto) 0.0 Baso % (Auto) 0.3 Absolute Neuts (auto) 6.1 Absolute Lymphs (auto) 0.67 L Total Counted Not Reportable ESR D-Dimer Quant (PE/DVT) Sodium Potassium Chloride Carbon Dioxide Anion Gap BUN Creatinine Estim Creat Clear Calc Est GFR (MDRD) Af Amer Est GFR (MDRD) Non-Af BUN/Creatinine Ratio Glucose Lactic Acid Calcium Troponin I C-React Prot Ext Range B-Natriuretic Peptide Urine Color Urine Clarity Urine pH Ur Specific [place] Urine Protein Urine Glucose (UA) Urine Ketones Urine Occult Blood Urine Nitrite Urine Bilirubin Urine Urobilinogen Ur Leukocyte Esterase Urine RBC Urine WBC Ur Squamous Epith Cells Urine Bacteria Urine Mucus Miscellaneous Test Clinical Impression(s) from Imaging Studies Head CTA 12/13/17 13:29 IMPRESSION: No CT evident acute intracranial process. Electronically Signed: John Brock MD at 16:16 EDT , Service support , Neck CTA 12/13/17 13:29 IMPRESSION: No CT evident hemodynamically significant stenosis of carotid vasculature. No aneurysm. No focal ectasia. Electronically Signed: John Brock MD at 16:31 EDT , Service support , Chest X-Ray 12/13/17 13:30 IMPRESSION: Multifocal bilateral alveolar opacifications consistent with foci of pneumonia and or atelectasis. Potential small left basilar pleural effusion. No pneumothorax. Moderate cardiomegaly versus pericardial fluid collection. Upon further review, findings throughout predominantly lung apices suggesting emphysema. Status post cholecystectomy. Electronically Signed: John Brock MD at 14:18 EDT , Service support , Chest CTA 12/13/17 14:29 IMPRESSION: No CT evidence of pulmonary embolism out to third order branching. No demonstrated vascular dissection. Dense perihilar consolidations with somewhat mass-like appearance to the left perihilar consolidation. Follow-up to exclude neoplasm highly recommended. Mildly pathologic by size criteria mediastinal and left hilar lymph nodes. These may simply be reactive. However, follow-up again recommended to assess stability. No pleural effusion. No pneumothorax. Electronically Signed: John Brock MD at 16:10 EDT , Service support , Brain MRI 12/13/17 18:49 IMPRESSION: Normal unenhanced and enhanced MRI of the brain. Electronically Signed: Laila Crabtree MD at 20:46 EDT Tel , Service support , Assessment/Plan All Active Problems Pneumonia (Acute) RECOMMENDATIONS: 1. Agree with antibiotics, pending infectious workup. 2. Check respiratory viral panel, along with strep and urine Legionella antigens. 3. We will add chest physiotherapy/PEP in hopes that this will assist the patient in expectorating sputum, which should be sent for culture. 4. Wean supplemental oxygen to maintain saturations at or above 90%. 5. There is no indication for emergent bronchoscopy. Recommend that the patient complete a treatment course of antibiotics, after which time, a repeat CT chest should be obtained in approximately 6 weeks. If there is continued radiographic abnormality noted in the left hilar region, would then proceed with bronchoscopy. IMPRESSIONS: 1. Acute hypoxic respiratory insufficiency Likely secondary to underlying pulmonary infectious process. The patient presented with a fever and has had a new/worsening cough, raising the concern for community-acquired pneumonia. She is currently on appropriate antibiotics. We will also plan to check a strep and urine Legionella antigen, along with a full respiratory viral panel. Will add chest physiotherapy in hopes that this will assist the patient in expectorating sputum, which I recommend should be sent for culture. Continue to wean supplemental oxygen to maintain saturations at or above 90%. 2. Left perihilar community-acquired pneumonia/nonspecific mediastinal lymphadenopathy The radiographic findings noted on CT chest could certainly be patient portal representative of an underlying pulmonary infectious process, for which the patient is currently on treatment. Would recommend repeating a CT chest in approximately 4-6 weeks to document resolution. If the patient continues to have the aforementioned radiographic abnormalities, would then consider bronchoscopy at that time. 3. Ataxia Of unclear etiology. MRI brain revealed no pathology. Neurology is to evaluate patient. This note was generated with [employer] dictation software. It may contain incorrect words, spelling, and punctuation that were not noted in checking the note before signing. Code Visit Inpatient E&M: 98591 Init Hosp L3
--- NOTE | 2017-12-14 08:53 | EKG12_ITS ---
Test Reason : TACHYCARDIA Blood Pressure : / mmHG Vent. Rate : 131 BPM Atrial Rate : 131 BPM P-R Int : 134 ms QRS Dur : 120 ms QT Int : 342 ms P-R-T Axes : 038 -38 125 degrees QTc Int : 505 ms Sinus tachycardia with frequent Premature ventricular complexes Left axis deviation Incomplete left bundle branch block Abnormal ECG Confirmed by MARE MANCINI, LIEN ([id number]), proposal editor FABIAN MERCADO ([id number] on 12/20/2017 11:43:54 AM Referred By: BRAVO Confirmed By:LIEN GARVEY MD
[2017-12-14] MEDS: 0.9% NaCl Peripheral Flush Adult/Peds IV (09:43)
[2017-12-14] MEDS: Enoxaparin 40 MG/0.4 ML Syringe SC (09:44)
[2017-12-14] MEDS: guaiFENesin 1,200 MG Tablet 1200 MG PO ×2 (09:44→20:53)
[2017-12-14] MEDS: Famotidine 20 MG Tablet 40 MG PO (09:44)
--- NOTE | 2017-12-14 09:50 | PCM.CONS.GEN ---
Problem List (1) Balance problem Status: Chronic Reason for Consult Date of Consultation: 12/14/17 Reason for Consultation: Balance issues History of Present Illness: The patient is a 77 year old CF with no PMH admitted with dyspnea, cough and fever. Neurology consulted for possible ataxia. Per patient she has been having balance issues for the past few months, has been having some neck pain for the past few days to weeks, denies any radicular symptoms, denies any low back pain, radicular symptoms, per patient he legs could shiver sometimes, but denies any weakness, also denies any burning pain or paresthesias of the fingers or toes. She denies any frequent falls, does not use cane or walker to ambulate, does drive intermittently, lives with her . At present she denies any OROSCO, visual disturbances, speech disturbances, focal motor weakness or sensory loss. MRI Brain done on admission reported nothing acute. CTA head/neck done on admission reported no hemodynamically significant stenosis or occlusion. [] Past Medical History Past Medical History (Chronic Problems): Chronic Problems Balance problem (Chronic) Allergies No Known Allergies Allergy (Verified 12/13/17 12:11) Home Medications: Ambulatory Orders Medication Instructions Recorded Ranitidine [Zantac] 300 mg PO DAILY 12/13/17 Lives: Spouse/ Significant Other Smoking Status: Never smoker Tobacco Use: Non-smoker Alcohol: None Drugs: None Review of Systems Constitutional: Reports: - - complete ROS negative except as documented in HPI Patient Problems: Active and Suspected Problems Pneumonia (Acute) - Physical Exam General: Alert HEENT: Normocephalic Neck: Supple Lungs: Normal air movement Cardiovascular: Normal S1, Normal S2 Abdomen: Bowel Sounds Present Extremities: No cyanosis Skin: No rashes Neurological: - - consious, alert, AoAx3, CN 2-12 grossly intact, power 5/5 all 4 extremities, no sensory loss, no cerebellar signs on examination at present, tone normal both UE, Rhomberg's could not be assessed, gait deferred, Reflexes + B/L B/S/T/K/A, No NR Psych/Mental Status: Normal Affect Vital Signs Temp Pulse Resp BP Pulse Ox 97.5 F L 110 H 20 H 139/55 H 95 12/14/17 08:55 12/14/17 09:06 12/14/17 09:06 12/14/17 08:55 12/14/17 08:55 Oxygen Flow Rate (L/min) 2 Oxygen Delivery Method Nasal Cannula Weight: 67.9 kg Body Mass Index (BMI) 26.5 Intake and Output for Last 24 Hours 12/12/17 12/13/17 12/14/17 23:59 23:59 23:59 Intake Total 520 / 520 Balance 520 / 520 Laboratory Tests Past 24 Hrs 12/13/17 12/13/17 12/13/17 12:13 12:13 12:13 WBC 7.5 RBC 4.95 Hgb 14.3 Hct 43.6 MCV 88.1 MCH 28.9 MCHC 32.8 RDW 14.0 RDW Differential 45.2 H Plt Count 133 L MPV 10.6 Immature Gran % (Auto) 0.000 Neut % (Auto) 75.1 H Lymph % (Auto) 12.5 L Green % (Auto) 12.1 H Eos % (Auto) 0.0 Baso % (Auto) 0.3 Absolute Neuts (auto) 5.7 Absolute Lymphs (auto) 0.94 Total Counted Not Reportable ESR D-Dimer Quant (PE/DVT) 1.43 H* Sodium 133 L Potassium 3.5 Chloride 101 Carbon Dioxide 23.0 Anion Gap 9 BUN 14 Creatinine 0.79 Estim Creat Clear Calc 50.58 Est GFR (MDRD) Af Amer 122 Est GFR (MDRD) Non-Af 101 BUN/Creatinine Ratio 17.7 Glucose 114 H Lactic Acid Calcium 8.3 L Troponin I < 0.015 C-React Prot Ext Range B-Natriuretic Peptide Urine Color Urine Clarity Urine pH Ur Specific [place] Urine Protein Urine Glucose (UA) Urine Ketones Urine Occult Blood Urine Nitrite Urine Bilirubin Urine Urobilinogen Ur Leukocyte Esterase Urine RBC Urine WBC Ur Squamous Epith Cells Urine Bacteria Urine Mucus Miscellaneous Test 12/13/17 12/13/17 12/13/17 12:13 12:13 15:26 WBC RBC Hgb Hct MCV MCH MCHC RDW RDW Differential Plt Count MPV Immature Gran % (Auto) Neut % (Auto) Lymph % (Auto) Green % (Auto) Eos % (Auto) Baso % (Auto) Absolute Neuts (auto) Absolute Lymphs (auto) Total Counted ESR D-Dimer Quant (PE/DVT) Sodium Potassium Chloride Carbon Dioxide Anion Gap BUN Creatinine Estim Creat Clear Calc Est GFR (MDRD) Af Amer Est GFR (MDRD) Non-Af BUN/Creatinine Ratio Glucose Lactic Acid 0.9 Calcium Troponin I C-React Prot Ext Range 83.90 H B-Natriuretic Peptide 143.0 H Urine Color Urine Clarity Urine pH Ur Specific [place] Urine Protein Urine Glucose (UA) Urine Ketones Urine Occult Blood Urine Nitrite Urine Bilirubin Urine Urobilinogen Ur Leukocyte Esterase Urine RBC Urine WBC Ur Squamous Epith Cells Urine Bacteria Urine Mucus Miscellaneous Test 12/13/17 12/13/17 12/13/17 18:34 20:20 20:20 WBC RBC Hgb Hct MCV MCH MCHC RDW RDW Differential Plt Count MPV Immature Gran % (Auto) Neut % (Auto) Lymph % (Auto) Green % (Auto) Eos % (Auto) Baso % (Auto) Absolute Neuts (auto) Absolute Lymphs (auto) Total Counted ESR 11 D-Dimer Quant (PE/DVT) Sodium Potassium Chloride Carbon Dioxide Anion Gap BUN Creatinine Estim Creat Clear Calc Est GFR (MDRD) Af Amer Est GFR (MDRD) Non-Af BUN/Creatinine Ratio Glucose Lactic Acid Calcium Troponin I C-React Prot Ext Range B-Natriuretic Peptide Urine Color Yellow Urine Clarity Clear Urine pH 5.0 Ur Specific [place] 1.010 Urine Protein 30 H Urine Glucose (UA) Normal Urine Ketones 5 H Urine Occult Blood 150 H Urine Nitrite Positive H Urine Bilirubin Negative Urine Urobilinogen Normal Ur Leukocyte Esterase 25 H Urine RBC 0 SEEN Urine WBC 0-5 SEEN Ur Squamous Epith Cells 0-5 SEEN Urine Bacteria 1+ Urine Mucus 0 SEEN Miscellaneous Test Pending 12/14/17 05:10 WBC 7.5 RBC 4.70 Hgb 13.5 Hct 41.5 MCV 88.3 MCH 28.7 MCHC 32.5 RDW 14.0 RDW Differential 45.6 H Plt Count 121 L MPV 10.2 Immature Gran % (Auto) 0.100 Neut % (Auto) 81.1 H Lymph % (Auto) 9.0 L Green % (Auto) 9.5 Eos % (Auto) 0.0 Baso % (Auto) 0.3 Absolute Neuts (auto) 6.1 Absolute Lymphs (auto) 0.67 L Total Counted Not Reportable ESR D-Dimer Quant (PE/DVT) Sodium Potassium Chloride Carbon Dioxide Anion Gap BUN Creatinine Estim Creat Clear Calc Est GFR (MDRD) Af Amer Est GFR (MDRD) Non-Af BUN/Creatinine Ratio Glucose Lactic Acid Calcium Troponin I C-React Prot Ext Range B-Natriuretic Peptide Urine Color Urine Clarity Urine pH Ur Specific [place] Urine Protein Urine Glucose (UA) Urine Ketones Urine Occult Blood Urine Nitrite Urine Bilirubin Urine Urobilinogen Ur Leukocyte Esterase Urine RBC Urine WBC Ur Squamous Epith Cells Urine Bacteria Urine Mucus Miscellaneous Test Assessment/Plan All Active Problems Pneumonia (Acute) The patient is a 77 year old CF with no PMH admitted with dyspnea, cough and fever. Neurology consulted for possible ataxia. Per patient she has been having balance issues for the past few months, has been having some neck pain for the past few days to weeks, denies any radicular symptoms, denies any low back pain, radicular symptoms, per patient he legs could shiver sometimes, but denies any weakness, also denies any burning pain or paresthesias of the fingers or toes. She denies any frequent falls, does not use cane or walker to ambulate, does drive intermittently, lives with her . At present she denies any OROSCO, visual disturbances, speech disturbances, focal motor weakness or sensory loss. MRI Brain done on admission reported nothing acute. CTA head/neck done on admission reported no hemodynamically significant stenosis or occlusion. IMpression Balance problem Plan -MRI Brain reviewed- nothing acute -Check MRI C spine w/o contrast -Check Vitamin B12 level, Vitamin D level, TSH, Hba1c, LAUREN/ANCA/SSa/SSb AB/RF, SPEP with [facility]KE and UPEP with [facility] -CT chest- perihilar consolidation, mass like appearance, r/o neoplasm. -Check ammonia, paraneoplastic antibody, anti HU (anti ALEJANDRO-1 ALEJANDRO-2, ALEJANDRO-3 ab), anti purkinje cell antibody. -EMG/NCS both LE as outpatient -PT/OT and balance therapy -Fall precautions -Labs reviewed- UA shows +ve LE/nitrites and +1 Bacteria -ON antibiotics for possible PNA -Further medical management per primary team -Follow up with Neurology as outpatient in 6 weeks -Please call with questions if any -Thank you for allowing us to participate in patient's care and management Code Visit Inpatient E&M: 84958 Init Hosp L3
--- NOTE | 2017-12-14 10:01 | MRI_ITS ---
STUDY: MRI CERVICAL SPINE WITHOUT CONTRAST REASON FOR EXAM: Female, 77 years old. Balance problems, unsteady gait. TECHNIQUE: Standardized fat and water weighted pulse sequences were obtained in the sagittal and axial planes. COMPARISON: None FINDINGS: Normal foramen magnum and brainstem-cervical cord junction. Normal craniovertebral junction. Normal anterior atlantoaxial articulation. Normal odontoid process. There is straightening of the normal cervical lordosis. Normal vertebral bodies and posterior osseous elements. C2-3: Normal endplates. Normal disc height, signal and morphology. Normal central canal and intervertebral neural foramina. C3-4: Normal endplates. Mild disc space narrowing. There is mild, noncompressive spondylotic bar. There is severe bilateral foraminal stenosis due to uncinate hypertrophy. C4-5: Normal endplates. Normal disc height, signal and morphology. There is moderate left foraminal encroachment due to uncinate hypertrophy. C5-6: Normal endplates. Mild disc space narrowing. There is a mild spondylotic bar and borderline canal stenosis. There is severe bilateral foraminal stenosis due to uncinate hypertrophy. C6-7: Normal endplates. Normal disc height, signal and morphology. Normal central canal and intervertebral neural foramina. C7-T1: Normal endplates. Normal disc height, signal and morphology. Normal central canal and intervertebral neural foramina. Normal cervical cord. Normal visualized soft tissue structures. MRI/Spine Cervical (Routine) IMPRESSION: 1. 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 2. Borderline canal stenosis at C5-6 due to spondylosis. Electronically Signed: Laila Crabtree MD at 16:36 EDT Tel , Service support ,
--- NOTE | 2017-12-14 11:23 | PCM.PN.HOSP ---
Patient Problems: Active and Suspected Problems Pneumonia (Acute) Vitals/I&O's: Vital Signs Temp Pulse Resp BP Pulse Ox 97.5 F L 110 H 20 H 139/55 H 95 12/14/17 08:55 12/14/17 09:06 12/14/17 09:06 12/14/17 08:55 12/14/17 08:55 Oxygen Flow Rate (L/min) 2 Oxygen Delivery Method Nasal Cannula Weight: 67.9 kg Body Mass Index (BMI) 26.5 Intake and Output for Last 24 Hours 12/12/17 12/13/17 12/14/17 23:59 23:59 23:59 Intake Total 520 / 520 Balance 520 / 520 Microbiology Past 72 Hours 12/13/17 18:34 Urine, Clean Catch Streptococcus pneumoniae Antigen (M - Final 12/13/17 18:34 Urine, Clean Catch Legionella Antigen - Final Laboratory Results 12/13/17 12:13: WBC 7.5, RBC 4.95, Hgb 14.3, Hct 43.6, MCV 88.1, MCH 28.9, MCHC 32.8, RDW 14.0, RDW Differential 45.2 H, Plt Count 133 L, MPV 10.6, Immature Gran % (Auto) 0.000, Neut % (Auto) 75.1 H, Lymph % (Auto) 12.5 L, [place] % (Auto) 12.1 H, Eos % (Auto) 0.0, Baso % (Auto) 0.3, Absolute Neuts (auto) 5.7, Absolute Lymphs (auto) 0.94, Total Counted Not Reportable 12/13/17 12:13: D-Dimer Quant (PE/DVT) 1.43 H* 12/13/17 12:13: Sodium 133 L, Potassium 3.5, Chloride 101, Carbon Dioxide 23.0, Anion Gap 9, BUN 14, Creatinine 0.79, Estim Creat Clear Calc 50.58, Est GFR (MDRD) Af Amer 122, Est GFR (MDRD) Non-Af 101, BUN/Creatinine Ratio 17.7, Glucose 114 H, Calcium 8.3 L, Troponin I < 0.015 12/13/17 12:13: B-Natriuretic Peptide 143.0 H 12/13/17 12:13: C-React Prot Ext Range 83.90 H 12/13/17 15:26: Lactic Acid 0.9 12/13/17 18:34: Urine Color Yellow, Urine Clarity Clear, Urine pH 5.0, Ur Specific [place] 1.010, Urine Protein 30 H, Urine Glucose (UA) Normal, Urine Ketones 5 H, Urine Occult Blood 150 H, Urine Nitrite Positive H, Urine Bilirubin Negative, Urine Urobilinogen Normal, Ur Leukocyte Esterase 25 H, Urine RBC 0 SEEN, Urine WBC 0-5 SEEN, Ur Squamous Epith Cells 0-5 SEEN, Urine Bacteria 1+, Urine Mucus 0 SEEN 12/13/17 20:20: Miscellaneous Test Pending 12/13/17 20:20: ESR 11 12/14/17 05:10: WBC 7.5, RBC 4.70, Hgb 13.5, Hct 41.5, MCV 88.3, MCH 28.7, MCHC 32.5, RDW 14.0, RDW Differential 45.6 H, Plt Count 121 L, MPV 10.2, Immature Gran % (Auto) 0.100, Neut % (Auto) 81.1 H, Lymph % (Auto) 9.0 L, [place] % (Auto) 9.5, Eos % (Auto) 0.0, Baso % (Auto) 0.3, Absolute Neuts (auto) 6.1, Absolute Lymphs (auto) 0.67 L, Total Counted Not Reportable 12/14/17 05:10: TSH Pending, Rheumatoid Factor Pending 12/14/17 05:10: Hemoglobin A1c Pending Current Medications Acetylcysteine (Mucomyst) 400 mg INHALATION Q6H.RT [facility] Last Admin: 12/14/17 09:05 Dose: 400 mg Albuterol/Ipratropium (Duoneb) 3 ml INHALATION Q6H.RT [facility] Last Admin: 12/14/17 09:05 Dose: 3 ml Enoxaparin Sodium (Lovenox) 40 mg SC DAILY@1000 [facility] Last Admin: 12/14/17 09:44 Dose: 40 mg Famotidine (Pepcid) 40 mg PO DAILY [facility] Last Admin: 12/14/17 09:44 Dose: 40 mg Guaifenesin (Mucinex) 1,200 mg PO BID [facility] Last Admin: 12/14/17 09:44 Dose: 1,200 mg Sodium Chloride () 1,000 mls @ 0 mls/hr IV .Q0M [facility] Last Admin: 12/13/17 14:21 Dose: 15 mls/hr Azithromycin 500 mg/ Dextrose 255 mls @ 250 mls/hr IV Q24 [facility] Last Admin: 12/14/17 10:54 Dose: 250 mls/hr Ceftriaxone Sodium 2 gm/ (Sodium Chloride) 50 mls @ 100 mls/hr IV DAILY [facility] Last Admin: 12/14/17 09:44 Dose: 100 mls/hr Magnesium Hydroxide (Milk Of Magnesia) 30 ml PO DAILY PRN PRN PRN Reason: Constipation Sodium Chloride () 5 - 30 ml IV UD PRN PRN Reason: SALINE FLUSH Last Admin: 12/14/17 09:43 Dose: 5 ml Medical Necessity - Tobacco Use Smoking Status: Never smoker Tobacco Use: Non-smoker Assessment/Plan All Active Problems Pneumonia (Acute)
[2017-12-14 11:33] LABS: Hemoglobin A1c 5.9 % (4.2-6.3)
[2017-12-14 11:34] LABS: Rheumatoid Factor < 10.0 IU/mL (<15); Thyroid Stim Hormone (TSH) 0.62 uIU/mL (0.358-3.74)
--- NOTE | 2017-12-14 11:35 | PCM.PN.HOSP ---
Patient Problems: Active and Suspected Problems Pneumonia (Acute) Subjective: Patient is a 77-year-old lady who was brought to the emergency department by the on account of progressive generalized weakness, cough as well as low-grade fever. Imaging studies obtained in the emergency department demonstrated Dense perihilar consolidations with somewhat mass-like appearance to the left perihilar consolidation. Presumptive diagnosis of community-acquired pneumonia was made patient admitted to a monitored bed for further management. Objective: GENERAL: cooperative HEENT: Atraumatic; moist oral mucosa EYES; Anicteric, Normal Conjunctiva NECK; supple, normal thyroid, no distended JVD. RESPIRATORY: Diminished to auscultation bilaterally, CARDIOVASCULAR: Regular S1 S2, no audible murmurs GI: soft, non-tender, normoactive bowel sounds, : No Renal angle tenderness; EXTREMITIES: No edema, no clubbing, no cyanosis. MUSCULOSKELETAL: No Joint Tenderness; no muscle waisting NEURO: Awake; no lateralizing signs. SKIN: No Rash PSYCH; Normal affect Vitals/I&O's: Vital Signs Temp Pulse Resp BP Pulse Ox 97.5 F L 114 H 20 H 139/55 H 95 12/14/17 08:55 12/14/17 11:15 12/14/17 09:06 12/14/17 08:55 12/14/17 08:55 Oxygen Flow Rate (L/min) 2 Oxygen Delivery Method Nasal Cannula Weight: 67.9 kg Body Mass Index (BMI) 26.5 Intake and Output for Last 24 Hours 12/12/17 12/13/17 12/14/17 23:59 23:59 23:59 Intake Total 520 / 520 Balance 520 / 520 Microbiology Past 72 Hours 12/13/17 18:34 Urine, Clean Catch Streptococcus pneumoniae Antigen (M - Final 12/13/17 18:34 Urine, Clean Catch Legionella Antigen - Final Laboratory Results 12/13/17 12:13: WBC 7.5, RBC 4.95, Hgb 14.3, Hct 43.6, MCV 88.1, MCH 28.9, MCHC 32.8, RDW 14.0, RDW Differential 45.2 H, Plt Count 133 L, MPV 10.6, Immature Gran % (Auto) 0.000, Neut % (Auto) 75.1 H, Lymph % (Auto) 12.5 L, [place] % (Auto) 12.1 H, Eos % (Auto) 0.0, Baso % (Auto) 0.3, Absolute Neuts (auto) 5.7, Absolute Lymphs (auto) 0.94, Total Counted Not Reportable 12/13/17 12:13: D-Dimer Quant (PE/DVT) 1.43 H* 12/13/17 12:13: Sodium 133 L, Potassium 3.5, Chloride 101, Carbon Dioxide 23.0, Anion Gap 9, BUN 14, Creatinine 0.79, Estim Creat Clear Calc 50.58, Est GFR (MDRD) Af Amer 122, Est GFR (MDRD) Non-Af 101, BUN/Creatinine Ratio 17.7, Glucose 114 H, Calcium 8.3 L, Troponin I < 0.015 12/13/17 12:13: B-Natriuretic Peptide 143.0 H 12/13/17 12:13: C-React Prot Ext Range 83.90 H 12/13/17 15:26: Lactic Acid 0.9 12/13/17 18:34: Urine Color Yellow, Urine Clarity Clear, Urine pH 5.0, Ur Specific [place] 1.010, Urine Protein 30 H, Urine Glucose (UA) Normal, Urine Ketones 5 H, Urine Occult Blood 150 H, Urine Nitrite Positive H, Urine Bilirubin Negative, Urine Urobilinogen Normal, Ur Leukocyte Esterase 25 H, Urine RBC 0 SEEN, Urine WBC 0-5 SEEN, Ur Squamous Epith Cells 0-5 SEEN, Urine Bacteria 1+, Urine Mucus 0 SEEN 12/13/17 20:20: Miscellaneous Test Pending 12/13/17 20:20: ESR 11 12/14/17 05:10: WBC 7.5, RBC 4.70, Hgb 13.5, Hct 41.5, MCV 88.3, MCH 28.7, MCHC 32.5, RDW 14.0, RDW Differential 45.6 H, Plt Count 121 L, MPV 10.2, Immature Gran % (Auto) 0.100, Neut % (Auto) 81.1 H, Lymph % (Auto) 9.0 L, [place] % (Auto) 9.5, Eos % (Auto) 0.0, Baso % (Auto) 0.3, Absolute Neuts (auto) 6.1, Absolute Lymphs (auto) 0.67 L, Total Counted Not Reportable 12/14/17 05:10: TSH 0.62, Rheumatoid Factor < 10.0 12/14/17 05:10: Hemoglobin A1c 5.9 Current Medications Acetylcysteine (Mucomyst) 400 mg INHALATION Q6H.RT [facility] Last Admin: 12/14/17 09:05 Dose: 400 mg Albuterol/Ipratropium (Duoneb) 3 ml INHALATION Q6H.RT [facility] Last Admin: 12/14/17 09:05 Dose: 3 ml Enoxaparin Sodium (Lovenox) 40 mg SC DAILY@1000 [facility] Last Admin: 12/14/17 09:44 Dose: 40 mg Famotidine (Pepcid) 40 mg PO DAILY [facility] Last Admin: 12/14/17 09:44 Dose: 40 mg Guaifenesin (Mucinex) 1,200 mg PO BID [facility] Last Admin: 12/14/17 09:44 Dose: 1,200 mg Sodium Chloride () 1,000 mls @ 0 mls/hr IV .Q0M [facility] Last Admin: 12/13/17 14:21 Dose: 15 mls/hr Azithromycin 500 mg/ Dextrose 255 mls @ 250 mls/hr IV Q24 [facility] Last Admin: 12/14/17 10:54 Dose: 250 mls/hr Ceftriaxone Sodium 2 gm/ (Sodium Chloride) 50 mls @ 100 mls/hr IV DAILY [facility] Last Admin: 12/14/17 09:44 Dose: 100 mls/hr Magnesium Hydroxide (Milk Of Magnesia) 30 ml PO DAILY PRN PRN PRN Reason: Constipation Sodium Chloride () 5 - 30 ml IV UD PRN PRN Reason: SALINE FLUSH Last Admin: 12/14/17 09:43 Dose: 5 ml Medical Necessity - Tobacco Use Smoking Status: Never smoker Tobacco Use: Non-smoker Assessment/Plan All Active Problems Pneumonia (Acute) Patient is a 77-year-old lady who was brought to the emergency department by the on account of progressive generalized weakness, cough as well as low-grade fever. Imaging studies obtained in the emergency department demonstrated Dense perihilar consolidations with somewhat mass-like appearance to the left perihilar consolidation. Presumptive diagnosis of community-acquired pneumonia was made patient admitted to a monitored bed for further management. 1. Acute respiratory insufficiency this was attributed to pneumonia: Suspected to be secondary to streptococci pneumo Blood and sputum cultures sent. Patient placed onRocephin and Zithromax. He was also placed on oxygen titrated to keep also is greater than 90 2. Suspected lung mass with nonspecific mediastinal lymphadenopathy. Consultation was placed to Dr. Cruz with pulmonary medicine. He did see the patient and plan is for patient to have a repeat CT of the chest in 4-6 weeks 3. Mediastinal lymphadenopathy management as discussed above 4. Questionable ataxia MRI of the brain was negative for acute CVA ; patient was placed to Dr. Wong with neurology who recommended obtaining MRI C spine w/o contrast as well as subsequent evaluation with Vitamin B12 level, Vitamin D level, TSH, Hba1c, LAUREN/ANCA/SSa/SSb AB/RF, SPEP with CLARKE and UPEP with [facility]KE patient to subsequently undergo EMG and nerve conduction studies involving the lower extremities as outpatient when discharged 5. Acute cystitis patient on antibiotics 6. DVT prophylaxis; Lovenox Advance planning; did discuss with the patient and family regarding her advanced directives as well as CODE STATUS. Did explain the various modalities involved ( FULL CODE, DNR CCA, DNR CCA with no intubation, and DNR CC ) patient elected to be FULL CODE. Order was placed. Time spent on discussion 18 minutes. Active Medications Acetylcysteine (Mucomyst) 400 mg INHALATION Q6H.RT [facility] Last Admin: 12/14/17 09:05 Dose: 400 mg Albuterol/Ipratropium (Duoneb) 3 ml INHALATION Q6H.RT [facility] Last Admin: 12/14/17 09:05 Dose: 3 ml Enoxaparin Sodium (Lovenox) 40 mg SC DAILY@1000 [facility] Last Admin: 12/14/17 09:44 Dose: 40 mg Famotidine (Pepcid) 40 mg PO DAILY [facility] Last Admin: 12/14/17 09:44 Dose: 40 mg Guaifenesin (Mucinex) 1,200 mg PO BID [facility] Last Admin: 12/14/17 09:44 Dose: 1,200 mg Sodium Chloride () 1,000 mls @ 0 mls/hr IV .Q0M [facility] Last Admin: 12/13/17 14:21 Dose: 15 mls/hr Azithromycin 500 mg/ Dextrose 255 mls @ 250 mls/hr IV Q24 [facility] Last Admin: 12/14/17 10:54 Dose: 250 mls/hr Ceftriaxone Sodium 2 gm/ (Sodium Chloride) 50 mls @ 100 mls/hr IV DAILY [facility] Last Admin: 12/14/17 09:44 Dose: 100 mls/hr Magnesium Hydroxide (Milk Of Magnesia) 30 ml PO DAILY PRN PRN PRN Reason: Constipation Sodium Chloride () 5 - 30 ml IV UD PRN PRN Reason: SALINE FLUSH Last Admin: 12/14/17 09:43 Dose: 5 ml Clinical Impression(s) from Imaging Studies Head CTA 12/13/17 13:29 IMPRESSION: No CT evident acute intracranial process. Electronically Signed: John Brock MD at 16:16 EDT , Service support , Neck CTA 12/13/17 13:29 IMPRESSION: No CT evident hemodynamically significant stenosis of carotid vasculature. No aneurysm. No focal ectasia. Electronically Signed: John Brock MD at 16:31 EDT , Service support , Chest X-Ray 12/13/17 13:30 IMPRESSION: Multifocal bilateral alveolar opacifications consistent with foci of pneumonia and or atelectasis. Potential small left basilar pleural effusion. No pneumothorax. Moderate cardiomegaly versus pericardial fluid collection. Upon further review, findings throughout predominantly lung apices suggesting emphysema. Status post cholecystectomy. Electronically Signed: John Brock MD at 14:18 EDT , Service support , Chest CTA 12/13/17 14:29 IMPRESSION: No CT evidence of pulmonary embolism out to third order branching. No demonstrated vascular dissection. Dense perihilar consolidations with somewhat mass-like appearance to the left perihilar consolidation. Follow-up to exclude neoplasm highly recommended. Mildly pathologic by size criteria mediastinal and left hilar lymph nodes. These may simply be reactive. However, follow-up again recommended to assess stability. No pleural effusion. No pneumothorax. Electronically Signed: John Brock MD at 16:10 EDT , Service support , Brain MRI 12/13/17 18:49 IMPRESSION: Normal unenhanced and enhanced MRI of the brain. Electronically Signed: Laila Crabtree MD at 20:46 EDT Tel , Service support , Code Visit Inpatient E&M: 12162 Subs Hosp L3 Procedures: 56604 Advncd Care Plan 30 Min
--- NOTE | 2017-12-14 11:44 | CASEMGMT ---
ADA ALMONTE assessment: Face to Face with patient for initial transition planning/care coordination assessment. ADA ALMONTE introduced self and role at [facility], pt voices understanding and consents to assessment at this time. Pt is sitting up in bed with labored breathing at times. Pt is A/O x4 at this time and answers all questions appropriately. Pt's is at bedside during assessment and answers questions for pt at times. Care providers, pharmacy, and demographics verified/updated at this time. PCP: [facility] Specialists: Pt states does not currently have specialists. Preferred Pharmacy: [facility] Insurance: MCR A/B, [employer] Prescription Benefit: Silver Rx, [employer] Living Will/HPOA: Pt states has both LW/HPOA and that her is HPOA but they are not currently on file at [facility]. LNOK: Christopher Acuña, ; Cedrick Acuña, son Living Arrangements: Pt states she lives with in 1 story home and states no concerns at home at this time. Transportation: Pt states drives self and states no transportation concerns at this time. DME/HHC: Pt states has a walk in shower and grab bars and states no need for any further DME at this time. Pt states no hx of HHC or SNF in the past. Pt states no concerns with going home at time of discharge. Pt states no preference for DME company if home oxygen is required at discharge. Pt states no further concerns/needs at this time. Advised pt/ to ask for CM if any further questions/concerns/needs arise, voices understanding. CM to follow for home oxygen need and any further discharge planning/needs. Plan: [place] ADA ALMONTE
[2017-12-14 12:50] LABS: Vitamin B12 1239 pg/mL (211-911); Vitamin D,25 Hydroxy 12.8 ng/mL (29.95-100.01)
[2017-12-14 15:39] LABS: M R Staph aureus DNA By PCR POSITIVE (Negative); Probe Check PASS
--- NOTE | 2017-12-14 19:59 | EKG12_ITS ---
Test Reason : CP Blood Pressure : / mmHG Vent. Rate : 107 BPM Atrial Rate : 107 BPM P-R Int : 162 ms QRS Dur : 118 ms QT Int : 360 ms P-R-T Axes : 059 -40 117 degrees QTc Int : 480 ms Sinus tachycardia Left axis deviation Incomplete left bundle branch block Abnormal ECG Confirmed by MARE MANCINI, LIEN ([id number]), continuity editor FABIAN MERCADO ([id number] on 12/20/2017 11:45:38 AM Referred By: BRAVO Confirmed By:LIEN GARVEY MD
[2017-12-14] MEDS: Labetalol 20 MG/4 ML Vial 5 MG IV (20:53)
[2017-12-14 22:03] LABS: Anion Gap 10 (5-15); BUN 10 mg/dL (7-18); BUN/Creat Ratio 14.6 RATIO (10-20); Calcium,Total 7.9 mg/dL (8.5-10.1); Chloride 100 mmol/L (98-107); Creatinine, Serum 0.68 mg/dL (0.55-1.02); EST Glomerular Filtration Rate 89 mL/min (>60); Est Glom Filt Rate - Afr Amer 108 mL/min (>60); Estimated Creatinine Clearance 37.85 ml/min; Glucose 148 mg/dL (74-106); Magnesium 1.6 mg/dL (1.6-2.6); Potassium 3.2 mmol/L (3.5-5.1); Sodium Level 135 mmol/L (136-145)
[2017-12-15] VITALS (20 sets, daily range): BP systolic 110–166; BP diastolic 39–73; PULSE 75–112; RESP 18–28; TEMP 36.4–38.1; O2SAT 93–96
[2017-12-15] MEDS: Acetaminophen 325 MG Tablet 650 MG PO (01:07)
[2017-12-15] MEDS: Acetylcysteine 800 MG/4 ML VIAL.NEB. 400 MG INHALATION ×3 (06:59→19:52)
[2017-12-15] MEDS: Ipratropium/Albuterol Sulfate 3 ML AMPUL.NEB INHALATION ×3 (06:59→19:53)
--- NOTE | 2017-12-15 07:43 | PCM.PROGNOTE ---
Patient Problems: Active and Suspected Problems Pneumonia (Acute) Subjective: The patient was seen and examined at the bedside this morning. Events from the last 24 hours have been reviewed. The patient is currently afebrile, hemodynamically stable and maintaining appropriate oxygen saturations on 3 L/min via nasal cannula. The patient reports that she has been utilizing chest physiotherapy/PEP per RT and has noted interval improvement in her breathing quality. She does report feeling less short of breath this morning. She was able to expectorate some sputum, which was sent for culture. Objective: The patient's most recent lab work, culture data and imaging studies have all been personally reviewed. Strep and urine Legionella antigens were both negative. Urine culture is currently pending. MRI brain was unremarkable. Cervical spine MRI revealed moderate to severe foraminal stenosis at C3-6. CTA chest revealed no evidence for pulmonary embolism. Multiple mediastinal lymph nodes were identified with borderline size criteria. There is also evidence of a left perihilar consolidation with possible associated atelectasis. - Physical Exam General: Alert, Cooperative, No apparent distress HEENT: Atraumatic, PERRLA, Normocephalic Oral: No Gingival or Mucosal Lesions/ Ulcerations Neck: Supple, No Nodes, Trachea Midline Lungs: No rhonchi, No wheeze, No rales, Diminished Cardiovascular: Regular rate, Regular Rhythm, Normal S1, Normal S2, No murmurs Abdomen: Bowel Sounds Present, Soft, Non Tender Extremities: No clubbing, No cyanosis, No edema Skin: No breakdown Musculoskeletal: No Tenderness to Palpation of Joints or Extremities Lymphatic: No Cervical, Supraclavicular, or Inguinal Adenopathy Neurological: Cranial nerves II-XII grossly intact, Neuro grossly intact Psych/Mental Status: Normal Affect, Appropriate Vital Signs Temp Pulse Resp BP Pulse Ox 99.1 F 89 22 H 122/60 H 94 12/15/17 06:00 12/15/17 07:10 12/15/17 06:00 12/15/17 06:00 12/15/17 06:00 Oxygen Flow Rate (L/min) 3 Oxygen Delivery Method Nasal Cannula Weight: 149 lb 11.102 oz Body Mass Index (BMI) 26.5 Intake and Output for Last 24 Hours 12/13/17 12/14/17 12/15/17 23:59 23:59 23:59 Intake Total 1714 / 1714 Output Total 975 / 975 200 / 200 Balance 739 / 739 -200 / -200 Microbiology Past 72 Hours 12/13/17 18:34 Streptococcus pneumoniae Antigen (M - Final Urine, Clean Catch 12/13/17 18:34 Legionella Antigen - Final Urine, Clean Catch Laboratory Tests Past 24 Hrs 12/14/17 12/14/17 12/14/17 05:10 05:10 11:30 Sodium Potassium Chloride Carbon Dioxide Anion Gap BUN Creatinine Estim Creat Clear Calc Est GFR (MDRD) Af Amer Est GFR (MDRD) Non-Af BUN/Creatinine Ratio Glucose Hemoglobin A1c 5.9 Calcium Magnesium Vitamin B12 1239 H Vitamin D 25-Hydroxy 12.8 L TSH 0.62 Ur Total Protein 24 Hr Urine Total Protein Urine Albumin U Oyddp-7-Grkyyenv U Rzmav-6-Mohrvyss U Beta Globulin U Gamma Globulin Rheumatoid Factor < 10.0 LAUREN Screen c-ANCA Antibody p-ANCA Antibody FAITH-1 Antibody SS-A/Ro IgG Antibody SS-B/La IgG Antibody Sm (Canchola) Antibody HEALTHCARE RECEPTIONIST Antibody Scl-70 Scleroderma Ab Double Strand DNA Ab Anti-ss DNA IgG Ab Centromere B Antibody MRSA (PCR) 12/14/17 12/14/17 12/14/17 11:30 11:30 14:05 Sodium Potassium Chloride Carbon Dioxide Anion Gap BUN Creatinine Estim Creat Clear Calc Est GFR (MDRD) Af Amer Est GFR (MDRD) Non-Af BUN/Creatinine Ratio Glucose Hemoglobin A1c Calcium Magnesium Vitamin B12 Vitamin D 25-Hydroxy TSH Ur Total Protein 24 Hr Pending Urine Total Protein Pending Urine Albumin Pending U Ikvsg-9-Tgwtizgw Pending U Hieog-9-Wvpqipmv Pending U Beta Globulin Pending U Gamma Globulin Pending Rheumatoid Factor LAUREN Screen Pending c-ANCA Antibody Pending p-ANCA Antibody Pending FAITH-1 Antibody Pending SS-A/Ro IgG Antibody Pending SS-B/La IgG Antibody Pending Sm (Canchola) Antibody Pending HEALTHCARE RECEPTIONIST Antibody Pending Scl-70 Scleroderma Ab Pending Double Strand DNA Ab Pending Anti-ss DNA IgG Ab Pending Centromere B Antibody Pending MRSA (PCR) POSITIVE H 12/14/17 20:59 Sodium 135 L Potassium 3.2 L Chloride 100 Carbon Dioxide 25.0 Anion Gap 10 BUN 10 Creatinine 0.68 Estim Creat Clear Calc 37.85 Est GFR (MDRD) Af Amer 108 Est GFR (MDRD) Non-Af 89 BUN/Creatinine Ratio 14.6 Glucose 148 H Hemoglobin A1c Calcium 7.9 L Magnesium 1.6 Vitamin B12 Vitamin D 25-Hydroxy TSH Ur Total Protein 24 Hr Urine Total Protein Urine Albumin U Qukdv-6-Vyblagfo U Jadmd-4-Giibychd U Beta Globulin U Gamma Globulin Rheumatoid Factor LAUREN Screen c-ANCA Antibody p-ANCA Antibody FAITH-1 Antibody SS-A/Ro IgG Antibody SS-B/La IgG Antibody Sm (Canchola) Antibody HEALTHCARE RECEPTIONIST Antibody Scl-70 Scleroderma Ab Double Strand DNA Ab Anti-ss DNA IgG Ab Centromere B Antibody MRSA (PCR) Clinical Impression(s) from Imaging Studies Head CTA 12/13/17 13:29 IMPRESSION: No CT evident acute intracranial process. Electronically Signed: John Brock MD at 16:16 EDT , Service support , Neck CTA 12/13/17 13:29 IMPRESSION: No CT evident hemodynamically significant stenosis of carotid vasculature. No aneurysm. No focal ectasia. Electronically Signed: John Brock MD at 16:31 EDT , Service support , Chest X-Ray 12/13/17 13:30 IMPRESSION: Multifocal bilateral alveolar opacifications consistent with foci of pneumonia and or atelectasis. Potential small left basilar pleural effusion. No pneumothorax. Moderate cardiomegaly versus pericardial fluid collection. Upon further review, findings throughout predominantly lung apices suggesting emphysema. Status post cholecystectomy. Electronically Signed: John Brock MD at 14:18 EDT , Service support , Chest CTA 12/13/17 14:29 IMPRESSION: No CT evidence of pulmonary embolism out to third order branching. No demonstrated vascular dissection. Dense perihilar consolidations with somewhat mass-like appearance to the left perihilar consolidation. Follow-up to exclude neoplasm highly recommended. Mildly pathologic by size criteria mediastinal and left hilar lymph nodes. These may simply be reactive. However, follow-up again recommended to assess stability. No pleural effusion. No pneumothorax. Electronically Signed: John Brock MD at 16:10 EDT , Service support , Brain MRI 12/13/17 18:49 IMPRESSION: Normal unenhanced and enhanced MRI of the brain. Electronically Signed: aLila Crbatree MD at 20:46 EDT Tel , Service support , Cervical Spine MRI 12/14/17 10:01 IMPRESSION: 1. 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 2. Borderline canal stenosis at C5-6 due to spondylosis. Electronically Signed: Laila Crabtree MD at 16:36 EDT Tel , Service support , Medical Necessity - Tobacco Use Smoking Status: Never smoker Tobacco Use: Non-smoker Assessment/Plan All Active Problems Pneumonia (Acute) RECOMMENDATIONS: 1. Continue antibiotics, pending infectious workup. 2. Continue chest physiotherapy/PEP 3. Wean supplemental oxygen to maintain saturations at or above 90%. 4. There is no indication for emergent bronchoscopy. Recommend that the patient complete a treatment course of antibiotics, after which time, a repeat CT chest should be obtained in approximately 6 weeks. If there is continued radiographic abnormality noted in the left hilar region, would then proceed with bronchoscopy. IMPRESSIONS: 1. Acute hypoxic respiratory insufficiency Likely secondary to underlying pulmonary infectious process. The patient presented with a fever and has had a new/worsening cough, raising the concern for community-acquired pneumonia. She is currently on appropriate antibiotics. Following the initiation of chest physiotherapy, the patient has been able to expectorate sputum, and a sample was sent for culture. Would continue to wean supplemental oxygen as tolerated. Encourage incentive spirometer use and mobilize patient as tolerated. 2. Left perihilar community-acquired pneumonia/nonspecific mediastinal lymphadenopathy The radiographic findings noted on CT chest could certainly be employee relations representative of an underlying pulmonary infectious process, for which the patient is currently on treatment. Would recommend repeating a CT chest in approximately 4-6 weeks to document resolution. If the patient continues to have the aforementioned radiographic abnormalities, would then consider bronchoscopy at that time. 3. Ataxia Of unclear etiology. MRI brain revealed no pathology. Neurology is following. This note was generated with [employer]Ch[employer] software. It may contain incorrect words, spelling, and punctuation that were not noted in checking the note before signing. Code Visit Inpatient E&M: 71025 Subs Hosp L2
--- NOTE | 2017-12-15 07:46 | PN_ITS ---
Patient Problems: Active and Suspected Problems Pneumonia (Acute) Subjective: The patient was seen and examined at the bedside this morning. Events from the last 24 hours have been reviewed. The patient is currently afebrile, hemodynamically stable and maintaining appropriate oxygen saturations on 3 L/min via nasal cannula. The patient reports that she has been utilizing chest physiotherapy/PEP per RT and has noted interval improvement in her breathing quality. She does report feeling less short of breath this morning. She was able to expectorate some sputum, which was sent for culture. Objective: The patient's most recent lab work, culture data and imaging studies have all been personally reviewed. Strep and urine Legionella antigens were both negative. Urine culture is currently pending. MRI brain was unremarkable. Cervical spine MRI revealed moderate to severe foraminal stenosis at C3-6. CTA chest revealed no evidence for pulmonary embolism. Multiple mediastinal lymph nodes were identified with borderline size criteria. There is also evidence of a left perihilar consolidation with possible associated atelectasis. - Physical Exam General: Alert, Cooperative, No apparent distress HEENT: Atraumatic, PERRLA, Normocephalic Oral: No Gingival or Mucosal Lesions/ Ulcerations Neck: Supple, No Nodes, Trachea Midline Lungs: No rhonchi, No wheeze, No rales, Diminished Cardiovascular: Regular rate, Regular Rhythm, Normal S1, Normal S2, No murmurs Abdomen: Bowel Sounds Present, Soft, Non Tender Extremities: No clubbing, No cyanosis, No edema Skin: No breakdown Musculoskeletal: No Tenderness to Palpation of Joints or Extremities Lymphatic: No Cervical, Supraclavicular, or Inguinal Adenopathy Neurological: Cranial nerves II-XII grossly intact, Neuro grossly intact Psych/Mental Status: Normal Affect, Appropriate Vital Signs Temp Pulse Resp BP Pulse Ox 99.1 F 89 22 H 122/60 H 94 12/15/17 06:00 12/15/17 07:10 12/15/17 06:00 12/15/17 06:00 12/15/17 06:00 Oxygen Flow Rate (L/min) 3 Oxygen Delivery Method Nasal Cannula Weight: 149 lb 11.102 oz Body Mass Index (BMI) 26.5 Intake and Output for Last 24 Hours 12/13/17 12/14/17 12/15/17 23:59 23:59 23:59 Intake Total 1714 / 1714 Output Total 975 / 975 200 / 200 Balance 739 / 739 -200 / -200 Microbiology Past 72 Hours 12/13/17 18:34 Streptococcus pneumoniae Antigen (M - Final Urine, Clean Catch 12/13/17 18:34 Legionella Antigen - Final Urine, Clean Catch Laboratory Tests Past 24 Hrs 12/14/17 12/14/17 12/14/17 05:10 05:10 11:30 Sodium Potassium Chloride Carbon Dioxide Anion Gap BUN Creatinine Estim Creat Clear Calc Est GFR (MDRD) Af Amer Est GFR (MDRD) Non-Af BUN/Creatinine Ratio Glucose Hemoglobin A1c 5.9 Calcium Magnesium Vitamin B12 1239 H Vitamin D 25-Hydroxy 12.8 L TSH 0.62 Ur Total Protein 24 Hr Urine Total Protein Urine Albumin U Kyjjb-2-Jvjrwhum U Llxyq-8-Xijbzqjd U Beta Globulin U Gamma Globulin Rheumatoid Factor < 10.0 LAUREN Screen c-ANCA Antibody p-ANCA Antibody AFITH-1 Antibody SS-A/Ro IgG Antibody SS-B/La IgG Antibody Sm (Canchola) Antibody INTERNAL COMBUSTION ENGINE INSPECTOR Antibody Scl-70 Scleroderma Ab Double Strand DNA Ab Anti-ss DNA IgG Ab Centromere B Antibody MRSA (PCR) 12/14/17 12/14/17 12/14/17 11:30 11:30 14:05 Sodium Potassium Chloride Carbon Dioxide Anion Gap BUN Creatinine Estim Creat Clear Calc Est GFR (MDRD) Af Amer Est GFR (MDRD) Non-Af BUN/Creatinine Ratio Glucose Hemoglobin A1c Calcium Magnesium Vitamin B12 Vitamin D 25-Hydroxy TSH Ur Total Protein 24 Hr Pending Urine Total Protein Pending Urine Albumin Pending U Fnise-5-Qeozyiad Pending U Vmpqw-6-Jjmcvxat Pending U Beta Globulin Pending U Gamma Globulin Pending Rheumatoid Factor LAUREN Screen Pending c-ANCA Antibody Pending p-ANCA Antibody Pending FAITH-1 Antibody Pending SS-A/Ro IgG Antibody Pending SS-B/La IgG Antibody Pending Sm ([place]ola) Antibody Pending INTERNAL COMBUSTION ENGINE INSPECTOR Antibody Pending Scl-70 Scleroderma Ab Pending Double Strand DNA Ab Pending Anti-ss DNA IgG Ab Pending Centromere B Antibody Pending MRSA (PCR) POSITIVE H 12/14/17 20:59 Sodium 135 L Potassium 3.2 L Chloride 100 Carbon Dioxide 25.0 Anion Gap 10 BUN 10 Creatinine 0.68 Estim Creat Clear Calc 37.85 Est GFR (MDRD) Af Amer 108 Est GFR (MDRD) Non-Af 89 BUN/Creatinine Ratio 14.6 Glucose 148 H Hemoglobin A1c Calcium 7.9 L Magnesium 1.6 Vitamin B12 Vitamin D 25-Hydroxy TSH Ur Total Protein 24 Hr Urine Total Protein Urine Albumin U Jsjnu-2-Bpjsxlqe U Vjlnk-0-Xhvsehsr U Beta Globulin U Gamma Globulin Rheumatoid Factor LAUREN Screen c-ANCA Antibody p-ANCA Antibody FAITH-1 Antibody SS-A/Ro IgG Antibody SS-B/La IgG Antibody Sm ([place]) Antibody INTERNAL COMBUSTION ENGINE INSPECTOR Antibody Scl-70 Scleroderma Ab Double Strand DNA Ab Anti-ss DNA IgG Ab Centromere B Antibody MRSA (PCR) Clinical Impression(s) from Imaging Studies Head CTA 12/13/17 13:29 IMPRESSION: No CT evident acute intracranial process. Electronically Signed: John Brock MD at 16:16 EDT , Service support , Neck CTA 12/13/17 13:29 IMPRESSION: No CT evident hemodynamically significant stenosis of carotid vasculature. No aneurysm. No focal ectasia. Electronically Signed: John Brock MD at 16:31 EDT , Service support , Chest X-Ray 12/13/17 13:30 IMPRESSION: Multifocal bilateral alveolar opacifications consistent with foci of pneumonia and or atelectasis. Potential small left basilar pleural effusion. No pneumothorax. Moderate cardiomegaly versus pericardial fluid collection. Upon further review, findings throughout predominantly lung apices suggesting emphysema. Status post cholecystectomy. Electronically Signed: John Brock MD at 14:18 EDT , Service support , Chest CTA 12/13/17 14:29 IMPRESSION: No CT evidence of pulmonary embolism out to third order branching. No demonstrated vascular dissection. Dense perihilar consolidations with somewhat mass-like appearance to the left perihilar consolidation. Follow-up to exclude neoplasm highly recommended. Mildly pathologic by size criteria mediastinal and left hilar lymph nodes. These may simply be reactive. However, follow-up again recommended to assess stability. No pleural effusion. No pneumothorax. Electronically Signed: John Brock MD at 16:10 EDT , Service support , Brain MRI 12/13/17 18:49 IMPRESSION: Normal unenhanced and enhanced MRI of the brain. Electronically Signed: Laila Crabtree MD at 20:46 EDT Tel , Service support , Cervical Spine MRI 12/14/17 10:01 IMPRESSION: 1. 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 2. Borderline canal stenosis at C5-6 due to spondylosis. Electronically Signed: Laila Crabtree MD at 16:36 EDT Tel , Service support , Medical Necessity - Tobacco Use Smoking Status: Never smoker Tobacco Use: Non-smoker Assessment/Plan All Active Problems Pneumonia (Acute) RECOMMENDATIONS: 1. Continue antibiotics, pending infectious workup. 2. Continue chest physiotherapy/PEP 3. Wean supplemental oxygen to maintain saturations at or above 90%. 4. There is no indication for emergent bronchoscopy. Recommend that the patient complete a treatment course of antibiotics, after which time, a repeat CT chest should be obtained in approximately 6 weeks. If there is continued radiographic abnormality noted in the left hilar region, would then proceed with bronchoscopy. IMPRESSIONS: 1. Acute hypoxic respiratory insufficiency Likely secondary to underlying pulmonary infectious process. The patient presented with a fever and has had a new/worsening cough, raising the concern for community-acquired pneumonia. She is currently on appropriate antibiotics. Following the initiation of chest physiotherapy, the patient has been able to expectorate sputum, and a sample was sent for culture. Would continue to wean supplemental oxygen as tolerated. Encourage incentive spirometer use and mobilize patient as tolerated. 2. Left perihilar community-acquired pneumonia/nonspecific mediastinal lymphadenopathy The radiographic findings noted on CT chest could certainly be in store marketing representative of an underlying pulmonary infectious process, for which the patient is currently on treatment. Would recommend repeating a CT chest in approximately 4-6 weeks to document resolution. If the patient continues to have the aforementioned radiographic abnormalities, would then consider bronchoscopy at that time. 3. Ataxia Of unclear etiology. MRI brain revealed no pathology. Neurology is following. This note was generated with [employer] software. It may contain incorrect words, spelling, and punctuation that were not noted in checking the note before signing. Code Visit Inpatient E&M: 42010 Subs Hosp L2
[2017-12-15] MEDS: Famotidine 20 MG Tablet 40 MG PO (08:06)
[2017-12-15] MEDS: guaiFENesin 1,200 MG Tablet 1200 MG PO ×2 (08:06→22:16)
[2017-12-15] MEDS: Enoxaparin 40 MG/0.4 ML Syringe SC (08:06)
[2017-12-15 10:13] LABS: Hemoglobin 13.6 g/dl (12.0-15.0); Mean Corp Hgb Conc 32.4 g/gl (32-36); Mean Corpuscular Hgb 29.2 pg (27.0-32.0); Mean Corpuscular Volume 90.3 fL (81-99); Mean Platelet Vol. 10.6 fl (6.2-12.0); Platelet Count 107 K/mm3 (150-450); RBC Distribution Width CV 14.5 % (11.6-14.6); RBC Distribution Width SD 47.1 fl (35.1-43.9); Red Blood Count 4.65 M/mm3 (4.2-5.4); Scan Indicated on CBC? Y/N NO
[2017-12-15 10:39] LABS: Anion Gap 10 (5-15); BUN 10 mg/dL (7-18); BUN/Creat Ratio 18.5 RATIO (10-20); Calcium,Total 7.9 mg/dL (8.5-10.1); Chloride 101 mmol/L (98-107); Creatinine, Serum 0.54 mg/dL (0.55-1.02); EST Glomerular Filtration Rate 116 mL/min (>60); Est Glom Filt Rate - Afr Amer 141 mL/min (>60); Estimated Creatinine Clearance 37.85 ml/min; Glucose 156 mg/dL (74-106); Magnesium 2.3 mg/dL (1.6-2.6); Potassium 3.7 mmol/L (3.5-5.1); Sodium Level 135 mmol/L (136-145)
--- NOTE | 2017-12-15 11:02 | PCM.PN.HOSP ---
Patient Problems: Active and Suspected Problems Pneumonia (Acute) Subjective: Patient seen appears fatigued. Her nursing staff had episodic confusion during the night. She is aware of her environment this a.m. and she knows she is in the hospital for a lung infection Objective: GENERAL: cooperative HEENT: Atraumatic; moist oral mucosa EYES; Anicteric, Normal Conjunctiva NECK; supple, normal thyroid, no distended JVD. RESPIRATORY: Diminished to auscultation bilaterally, CARDIOVASCULAR: Regular S1 S2, no audible murmurs GI: soft, non-tender, normoactive bowel sounds, : No Renal angle tenderness; EXTREMITIES: No edema, no clubbing, no cyanosis. MUSCULOSKELETAL: No Joint Tenderness; no muscle waisting NEURO: Awake; no lateralizing signs. SKIN: No Rash PSYCH; Normal affect Vitals/I&O's: Vital Signs Temp Pulse Resp BP Pulse Ox 97.6 F L 96 18 126/39 H 94 12/15/17 08:00 12/15/17 08:00 12/15/17 08:14 12/15/17 08:00 12/15/17 08:14 Oxygen Flow Rate (L/min) 2 Oxygen Delivery Method Nasal Cannula Weight: 67.9 kg Body Mass Index (BMI) 26.5 Intake and Output for Last 24 Hours 12/13/17 12/14/17 12/15/17 23:59 23:59 23:59 Intake Total 1714 / 1714 Output Total 975 / 975 200 / 200 Balance 739 / 739 -200 / -200 Microbiology Past 72 Hours 12/13/17 18:34 Urine, Clean Catch Urine Culture - Final Mixed Gram Pos & Gram Neg Org 12/13/17 18:34 Urine, Clean Catch Streptococcus pneumoniae Antigen (M - Final 12/13/17 18:34 Urine, Clean Catch Legionella Antigen - Final Laboratory Results 12/14/17 05:10: TSH 0.62, Rheumatoid Factor < 10.0 12/14/17 05:10: Hemoglobin A1c 5.9 12/14/17 11:30: Vitamin B12 1239 H, Vitamin D 25-Hydroxy 12.8 L 12/14/17 11:30: LAUREN Screen Pending, FAITH-1 Antibody Pending, SS-A/Ro IgG Antibody Pending, SS-B/La IgG Antibody Pending, Sm (Canchola) Antibody Pending, ASSOCIATE PROFESSOR OF PHILOSOPHY Antibody Pending, Scl-70 Scleroderma Ab Pending, Double Strand DNA Ab Pending, Centromere B Antibody Pending 12/14/17 11:30: Ur Total Protein 24 Hr Pending, Urine Total Protein Pending, Urine Albumin Pending, U Nangs-6-Whuayqzu Pending, U Hsvod-9-Yjaeuyfs Pending, U Beta Globulin Pending, U Gamma Globulin Pending, c-ANCA Antibody Pending, p-ANCA Antibody Pending, Anti-ss DNA IgG Ab Pending 12/14/17 14:05: MRSA (PCR) POSITIVE H 12/14/17 20:59: Sodium 135 L, Potassium 3.2 L, Chloride 100, Carbon Dioxide 25.0, Anion Gap 10, BUN 10, Creatinine 0.68, Estim Creat Clear Calc 37.85, Est GFR (MDRD) Af Amer 108, Est GFR (MDRD) Non-Af 89, BUN/Creatinine Ratio 14.6, Glucose 148 H, Calcium 7.9 L, Magnesium 1.6 12/15/17 10:00: Sodium 135 L, Potassium 3.7, Chloride 101, Carbon Dioxide 24.0, Anion Gap 10, BUN 10, Creatinine 0.54 L, Estim Creat Clear Calc 37.85, Est GFR (MDRD) Af Amer 141, Est GFR (MDRD) Non-Af 116, BUN/Creatinine Ratio 18.5, Glucose 156 H, Calcium 7.9 L, Magnesium 2.3 12/15/17 10:00: WBC 6.0, RBC 4.65, Hgb 13.6, Hct 42.0, MCV 90.3, MCH 29.2, MCHC 32.4, RDW 14.5, RDW Differential 47.1 H, Plt Count 107 L, MPV 10.6 Current Medications Acetaminophen (Tylenol) 650 mg PO Q6H PRN PRN PRN Reason: Fever >101 Last Admin: 12/15/17 01:07 Dose: 650 mg Acetylcysteine (Mucomyst) 400 mg INHALATION Q6H.RT [facility] Last Admin: 12/15/17 06:59 Dose: 400 mg Albuterol/Ipratropium (Duoneb) 3 ml INHALATION Q6H.RT [facility] Last Admin: 12/15/17 06:59 Dose: 3 ml Enoxaparin Sodium (Lovenox) 40 mg SC DAILY@1000 KEENA Last Admin: 12/15/17 08:06 Dose: 40 mg Famotidine (Pepcid) 40 mg PO DAILY [facility] Last Admin: 12/15/17 08:06 Dose: 40 mg Guaifenesin (Mucinex) 1,200 mg PO BID [facility] Last Admin: 12/15/17 08:06 Dose: 1,200 mg Sodium Chloride () 1,000 mls @ 0 mls/hr IV .Q0M [facility] Last Admin: 12/13/17 14:21 Dose: 15 mls/hr Azithromycin 500 mg/ Dextrose 255 mls @ 250 mls/hr IV Q24 [facility] Last Admin: 12/15/17 08:06 Dose: 250 mls/hr Ceftriaxone Sodium 2 gm/ (Sodium Chloride) 50 mls @ 100 mls/hr IV DAILY [facility] Last Admin: 12/15/17 08:06 Dose: 100 mls/hr Magnesium Hydroxide (Milk Of Magnesia) 30 ml PO DAILY PRN PRN PRN Reason: Constipation Sodium Chloride () 5 - 30 ml IV UD PRN PRN Reason: SALINE FLUSH Last Admin: 12/14/17 09:43 Dose: 5 ml Medical Necessity - Tobacco Use Smoking Status: Never smoker Tobacco Use: Non-smoker Assessment/Plan All Active Problems Pneumonia (Acute) Patient is a 77-year-old lady who was brought to the emergency department by the on account of progressive generalized weakness, cough as well as low-grade fever. Imaging studies obtained in the emergency department demonstrated Dense perihilar consolidations with somewhat mass-like appearance to the left perihilar consolidation. Presumptive diagnosis of community-acquired pneumonia was made patient admitted to a monitored bed for further management. 1. Acute respiratory insufficiency this was attributed to pneumonia: Suspected to be secondary to streptococci pneumo Blood and sputum cultures sent. Patient placed onRocephin and Zithromax. She was also placed on oxygen titrated to keep also is greater than 90 with slight improvement in patient's overall condition 2. Suspected lung mass with nonspecific mediastinal lymphadenopathy. Consultation was placed to Dr. Cruz with pulmonary medicine. He did see the patient and plan is for patient to have a repeat CT of the chest in 4-6 weeks 3. Mediastinal lymphadenopathy management as discussed above 4. Questionable ataxia MRI of the brain was negative for acute CVA ; patient was placed to Dr. Wong with neurology who recommended obtaining MRI C spine w/o contrast as well as subsequent evaluation with Vitamin B12 level, Vitamin D level, TSH, Hba1c, LAUREN/ANCA/SSa/SSb AB/RF, SPEP with CLARKE and UPEP with CLARKE patient to subsequently undergo EMG and nerve conduction studies involving the lower extremities as outpatient when discharged. Results of serological test pending 5. Acute cystitis patient on antibiotics 6. DVT prophylaxis; Lovenox Advance planning; did discuss with the patient and family regarding her advanced directives as well as CODE STATUS. Did explain the various modalities involved ( FULL CODE, DNR CCA, DNR CCA with no intubation, and DNR CC ) patient elected to be FULL CODE. Order was placed. Time spent on discussion 18 minutes. Code Visit Inpatient E&M: 38616 Subs Hosp L2
--- NOTE | 2017-12-15 11:10 | PN_ITS ---
Patient Problems: Active and Suspected Problems Pneumonia (Acute) Subjective: Patient seen appears fatigued. Her nursing staff had episodic confusion during the night. She is aware of her environment this a.m. and she knows she is in the hospital for a lung infection Objective: GENERAL: cooperative HEENT: Atraumatic; moist oral mucosa EYES; Anicteric, Normal Conjunctiva NECK; supple, normal thyroid, no distended JVD. RESPIRATORY: Diminished to auscultation bilaterally, CARDIOVASCULAR: Regular S1 S2, no audible murmurs GI: soft, non-tender, normoactive bowel sounds, : No Renal angle tenderness; EXTREMITIES: No edema, no clubbing, no cyanosis. MUSCULOSKELETAL: No Joint Tenderness; no muscle waisting NEURO: Awake; no lateralizing signs. SKIN: No Rash PSYCH; Normal affect Vitals/I&O's: Vital Signs Temp Pulse Resp BP Pulse Ox 97.6 F L 96 18 126/39 H 94 12/15/17 08:00 12/15/17 08:00 12/15/17 08:14 12/15/17 08:00 12/15/17 08:14 Oxygen Flow Rate (L/min) 2 Oxygen Delivery Method Nasal Cannula Weight: 67.9 kg Body Mass Index (BMI) 26.5 Intake and Output for Last 24 Hours 12/13/17 12/14/17 12/15/17 23:59 23:59 23:59 Intake Total 1714 / 1714 Output Total 975 / 975 200 / 200 Balance 739 / 739 -200 / -200 Microbiology Past 72 Hours 12/13/17 18:34 Urine, Clean Catch Urine Culture - Final Mixed Gram Pos & Gram Neg Org 12/13/17 18:34 Urine, Clean Catch Streptococcus pneumoniae Antigen (M - Final 12/13/17 18:34 Urine, Clean Catch Legionella Antigen - Final Laboratory Results 12/14/17 05:10: TSH 0.62, Rheumatoid Factor < 10.0 12/14/17 05:10: Hemoglobin A1c 5.9 12/14/17 11:30: Vitamin B12 1239 H, Vitamin D 25-Hydroxy 12.8 L 12/14/17 11:30: LAUREN Screen Pending, FAITH-1 Antibody Pending, SS-A/Ro IgG Antibody Pending, SS-B/La IgG Antibody Pending, Sm (Canchola) Antibody Pending, BOMB LOADER Antibody Pending, Scl-70 Scleroderma Ab Pending, Double Strand DNA Ab Pending, Centromere B Antibody Pending 12/14/17 11:30: Ur Total Protein 24 Hr Pending, Urine Total Protein Pending, Urine Albumin Pending, U Ryugw-1-Mzyyspcd Pending, U Ytryz-7-Flqyqgda Pending, U Beta Globulin Pending, U Gamma Globulin Pending, c-ANCA Antibody Pending, p-ANCA Antibody Pending, Anti-ss DNA IgG Ab Pending 12/14/17 14:05: MRSA (PCR) POSITIVE H 12/14/17 20:59: Sodium 135 L, Potassium 3.2 L, Chloride 100, Carbon Dioxide 25.0, Anion Gap 10, BUN 10, Creatinine 0.68, Estim Creat Clear Calc 37.85, Est GFR (MDRD) Af Amer 108, Est GFR (MDRD) Non-Af 89, BUN/Creatinine Ratio 14.6, Glucose 148 H, Calcium 7.9 L, Magnesium 1.6 12/15/17 10:00: Sodium 135 L, Potassium 3.7, Chloride 101, Carbon Dioxide 24.0, Anion Gap 10, BUN 10, Creatinine 0.54 L, Estim Creat Clear Calc 37.85, Est GFR (MDRD) Af Amer 141, Est GFR (MDRD) Non-Af 116, BUN/Creatinine Ratio 18.5, Glucose 156 H, Calcium 7.9 L, Magnesium 2.3 12/15/17 10:00: WBC 6.0, RBC 4.65, Hgb 13.6, Hct 42.0, MCV 90.3, MCH 29.2, MCHC 32.4, RDW 14.5, RDW Differential 47.1 H, Plt Count 107 L, MPV 10.6 Current Medications Acetaminophen (Tylenol) 650 mg PO Q6H PRN PRN PRN Reason: Fever >101 Last Admin: 12/15/17 01:07 Dose: 650 mg Acetylcysteine (Mucomyst) 400 mg INHALATION Q6H.RT [facility] Last Admin: 12/15/17 06:59 Dose: 400 mg Albuterol/Ipratropium (Duoneb) 3 ml INHALATION Q6H.RT [facility] Last Admin: 12/15/17 06:59 Dose: 3 ml Enoxaparin Sodium (Lovenox) 40 mg SC DAILY@1000 KEENA Last Admin: 12/15/17 08:06 Dose: 40 mg Famotidine (Pepcid) 40 mg PO DAILY [facility] Last Admin: 12/15/17 08:06 Dose: 40 mg Guaifenesin (Mucinex) 1,200 mg PO BID [facility] Last Admin: 12/15/17 08:06 Dose: 1,200 mg Sodium Chloride () 1,000 mls @ 0 mls/hr IV .Q0M [facility] Last Admin: 12/13/17 14:21 Dose: 15 mls/hr Azithromycin 500 mg/ Dextrose 255 mls @ 250 mls/hr IV Q24 [facility] Last Admin: 12/15/17 08:06 Dose: 250 mls/hr Ceftriaxone Sodium 2 gm/ (Sodium Chloride) 50 mls @ 100 mls/hr IV DAILY [facility] Last Admin: 12/15/17 08:06 Dose: 100 mls/hr Magnesium Hydroxide (Milk Of Magnesia) 30 ml PO DAILY PRN PRN PRN Reason: Constipation Sodium Chloride () 5 - 30 ml IV UD PRN PRN Reason: SALINE FLUSH Last Admin: 12/14/17 09:43 Dose: 5 ml Medical Necessity - Tobacco Use Smoking Status: Never smoker Tobacco Use: Non-smoker Assessment/Plan All Active Problems Pneumonia (Acute) Patient is a 77-year-old lady who was brought to the emergency department by the on account of progressive generalized weakness, cough as well as low- grade fever. Imaging studies obtained in the emergency department demonstrated Dense perihilar consolidations with somewhat mass-like appearance to the left perihilar consolidation. Presumptive diagnosis of community-acquired pneumonia was made patient admitted to a monitored bed for further management. 1. Acute respiratory insufficiency this was attributed to pneumonia: Suspected to be secondary to streptococci pneumo Blood and sputum cultures sent. Patient placed onRocephin and Zithromax. She was also placed on oxygen titrated to keep also is greater than 90 with slight improvement in patient's overall condition 2. Suspected lung mass with nonspecific mediastinal lymphadenopathy. Consultation was placed to Dr. Cruz with pulmonary medicine. He did see the patient and plan is for patient to have a repeat CT of the chest in 4-6 weeks 3. Mediastinal lymphadenopathy management as discussed above 4. Questionable ataxia MRI of the brain was negative for acute CVA ; patient was placed to Dr. Wong with neurology who recommended obtaining MRI C spine w/o contrast as well as subsequent evaluation with Vitamin B12 level, Vitamin D level, TSH, Hba1c, LAUREN/ANCA/SSa/SSb AB/RF, SPEP with CLARKE and UPEP with CLARKE patient to subsequently undergo EMG and nerve conduction studies involving the lower extremities as outpatient when discharged. Results of serological test pending 5. Acute cystitis patient on antibiotics 6. DVT prophylaxis; Lovenox Advance planning; did discuss with the patient and family regarding her advanced directives as well as CODE STATUS. Did explain the various modalities involved ( FULL CODE, DNR CCA, DNR CCA with no intubation, and DNR CC ) patient elected to be FULL CODE. Order was placed. Time spent on discussion 18 minutes. Code Visit Inpatient E&M: 93081 Subs Hosp L2
[2017-12-15 20:39] LABS: AST(SGOT) 40 U/L (15-37); Alanine Aminotransfer ALT/SGPT 30 U/L (13-56); Alkaline Phosphatase 56 U/L (45-117); Bilirubin, Direct 0.14 mg/dL (0.00-0.30); Globulin 3.8 g/dL (2.2-4.2); Protein, Total 6.8 g/dL (6.4-8.2)
[2017-12-16] VITALS (21 sets, daily range): BP systolic 138–165; BP diastolic 63–96; PULSE 96–120; RESP 18–28; TEMP 36.4–37.1; O2SAT 93–96
[2017-12-16] MEDS: Ipratropium/Albuterol Sulfate 3 ML AMPUL.NEB INHALATION ×4 (01:58→19:44)
[2017-12-16 06:22] LABS: Hematocrit 41.1 % (37-47); Hemoglobin 13.9 g/dl (12.0-15.0); Mean Corp Hgb Conc 33.8 g/gl (32-36); Mean Corpuscular Hgb 29.8 pg (27.0-32.0); Mean Platelet Vol. 10.3 fl (6.2-12.0); Platelet Count 141 K/mm3 (150-450); RBC Distribution Width SD 45.2 fl (35.1-43.9); Red Blood Count 4.67 M/mm3 (4.2-5.4)
[2017-12-16 06:34] LABS: Scan Indicated on CBC? Y/N NO
[2017-12-16] MEDS: Acetylcysteine 800 MG/4 ML VIAL.NEB. 400 MG INHALATION ×3 (06:47→19:44)
[2017-12-16 06:50] LABS: Anion Gap 9 (5-15); BUN 10 mg/dL (7-18); BUN/Creat Ratio 17.9 RATIO (10-20); Calcium,Total 8.3 mg/dL (8.5-10.1); Chloride 100 mmol/L (98-107); Creatinine, Serum 0.56 mg/dL (0.55-1.02); EST Glomerular Filtration Rate 112 mL/min (>60); Est Glom Filt Rate - Afr Amer 135 mL/min (>60); Estimated Creatinine Clearance 37.85 ml/min; Glucose 113 mg/dL (74-106); Potassium 3.6 mmol/L (3.5-5.1); Sodium Level 137 mmol/L (136-145)
--- NOTE | 2017-12-16 07:44 | PCM.PROGNOTE ---
Patient Problems: Active and Suspected Problems Pneumonia (Acute) Subjective: The patient was seen and examined at the bedside this morning. Events from the last 24 hours have been reviewed. The patient is currently afebrile, hemodynamically stable and maintaining appropriate oxygen saturations on 2 L/min via nasal cannula. She is currently resting comfortably in bed and reports the presence of a mild nonproductive cough. Objective: The patient's most recent lab work, culture data and imaging studies have all been personally reviewed. Strep and urine Legionella antigens were both negative. Urine culture is currently pending. MRI brain was unremarkable. Cervical spine MRI revealed moderate to severe foraminal stenosis at C3-6. CTA chest revealed no evidence for pulmonary embolism. Multiple mediastinal lymph nodes were identified with borderline size criteria. There is also evidence of a left perihilar consolidation with possible associated atelectasis. - Physical Exam General: Alert, Cooperative, No apparent distress HEENT: Atraumatic, PERRLA, Normocephalic Oral: No Gingival or Mucosal Lesions/ Ulcerations Neck: Supple, No Nodes, Trachea Midline Lungs: No rhonchi, No wheeze, No rales, Diminished Cardiovascular: Regular rate, Regular Rhythm, Normal S1, Normal S2, No murmurs Abdomen: Bowel Sounds Present, Soft, Non Tender Extremities: No clubbing, No cyanosis, No edema Skin: No breakdown Musculoskeletal: No Tenderness to Palpation of Joints or Extremities, No Muscle Wasting Lymphatic: No Cervical, Supraclavicular, or Inguinal Adenopathy Neurological: Cranial nerves II-XII grossly intact, Neuro grossly intact Psych/Mental Status: Normal Affect, Appropriate Vital Signs Temp Pulse Resp BP Pulse Ox 97.8 F 114 H 24 H 155/74 H 94 12/16/17 07:00 12/16/17 07:11 12/16/17 07:00 12/16/17 07:00 12/16/17 07:00 Oxygen Flow Rate (L/min) 2 Oxygen Delivery Method Nasal Cannula Weight: 149 lb 11.102 oz Body Mass Index (BMI) 26.5 Intake and Output for Last 24 Hours 12/14/17 12/15/17 12/16/17 23:59 23:59 23:59 Intake Total 1714 / 1714 600 / 600 400 / 400 Output Total 975 / 975 900 / 900 600 / 600 Balance 739 / 739 -300 / -300 -200 / -200 Microbiology Past 72 Hours 12/15/17 07:47 Gram Stain - Final Sputum, Expectorated/Coughed 12/13/17 18:34 Urine Culture - Final Urine, Clean Catch Mixed Gram Pos & Gram Neg Org 12/13/17 18:34 Streptococcus pneumoniae Antigen (M - Final Urine, Clean Catch 12/13/17 18:34 Legionella Antigen - Final Urine, Clean Catch Laboratory Tests Past 24 Hrs 12/15/17 12/15/17 12/15/17 10:00 10:00 19:45 WBC 6.0 RBC 4.65 Hgb 13.6 Hct 42.0 MCV 90.3 MCH 29.2 MCHC 32.4 RDW 14.5 RDW Differential 47.1 H Plt Count 107 L MPV 10.6 Sodium 135 L Potassium 3.7 Chloride 101 Carbon Dioxide 24.0 Anion Gap 10 BUN 10 Creatinine 0.54 L Estim Creat Clear Calc 37.85 Est GFR (MDRD) Af Amer 141 Est GFR (MDRD) Non-Af 116 BUN/Creatinine Ratio 18.5 Glucose 156 H Calcium 7.9 L Magnesium 2.3 Total Bilirubin 0.50 Direct Bilirubin 0.14 AST 40 H ALT 30 Alkaline Phosphatase 56 Ammonia Total Protein 6.8 Albumin 3.0 L Globulin 3.8 Urine Total Protein Urine Albumin U Goyjo-2-Eplrvphy U Keczr-9-Ryhqhfzl U Beta Globulin U Gamma Globulin U PEP M-Nikolas Ur Immunofix PEP Note 12/15/17 12/15/17 12/16/17 19:45 20:20 06:10 WBC 5.0 RBC 4.67 Hgb 13.9 Hct 41.1 MCV 88.0 MCH 29.8 MCHC 33.8 RDW 14.0 RDW Differential 45.2 H Plt Count 141 L MPV 10.3 Sodium Potassium Chloride Carbon Dioxide Anion Gap BUN Creatinine Estim Creat Clear Calc Est GFR (MDRD) Af Amer Est GFR (MDRD) Non-Af BUN/Creatinine Ratio Glucose Calcium Magnesium Total Bilirubin Direct Bilirubin AST ALT Alkaline Phosphatase Ammonia 20.0 Total Protein Albumin Globulin Urine Total Protein Cancelled Urine Albumin Cancelled U Suafl-0-Lgueoaro Cancelled U Bnouo-5-Clhcwlsa Cancelled U Beta Globulin Cancelled U Gamma Globulin Cancelled U PEP M-Nikolas Cancelled Ur Immunofix PEP Note Cancelled 10/14/18 10/14/18 06:10 06:30 WBC RBC Hgb Hct MCV MCH MCHC RDW RDW Differential Plt Count MPV Sodium 137 Potassium 3.6 Chloride 100 Carbon Dioxide 28.0 Anion Gap 9 BUN 10 Creatinine 0.56 Estim Creat Clear Calc 37.85 Est GFR (MDRD) Af Amer 135 Est GFR (MDRD) Non-Af 112 BUN/Creatinine Ratio 17.9 Glucose 113 H Calcium 8.3 L Magnesium Total Bilirubin Direct Bilirubin AST ALT Alkaline Phosphatase Ammonia Total Protein Albumin Globulin Urine Total Protein Pending Urine Albumin Pending U Cvxxi-6-Fukwiocm Pending U Vnouw-6-Eiwfevha Pending U Beta Globulin Pending U Gamma Globulin Pending U PEP M-Nikolas Pending Ur Immunofix PEP Note Clinical Impression(s) from Imaging Studies Head CTA 12/13/17 13:29 IMPRESSION: No CT evident acute intracranial process. Electronically Signed: John Brock MD at 16:16 EDT , Service support , Neck CTA 12/13/17 13:29 IMPRESSION: No CT evident hemodynamically significant stenosis of carotid vasculature. No aneurysm. No focal ectasia. Electronically Signed: John Brock MD at 16:31 EDT , Service support , Chest X-Ray 12/13/17 13:30 IMPRESSION: Multifocal bilateral alveolar opacifications consistent with foci of pneumonia and or atelectasis. Potential small left basilar pleural effusion. No pneumothorax. Moderate cardiomegaly versus pericardial fluid collection. Upon further review, findings throughout predominantly lung apices suggesting emphysema. Status post cholecystectomy. Electronically Signed: John Brock MD at 14:18 EDT , Service support , Chest CTA 12/13/17 14:29 IMPRESSION: No CT evidence of pulmonary embolism out to third order branching. No demonstrated vascular dissection. Dense perihilar consolidations with somewhat mass-like appearance to the left perihilar consolidation. Follow-up to exclude neoplasm highly recommended. Mildly pathologic by size criteria mediastinal and left hilar lymph nodes. These may simply be reactive. However, follow-up again recommended to assess stability. No pleural effusion. No pneumothorax. Electronically Signed: John Brock MD at 16:10 EDT , Service support , Brain MRI 12/13/17 18:49 IMPRESSION: Normal unenhanced and enhanced MRI of the brain. Electronically Signed: Laila Crabtree MD at 20:46 EDT Tel , Service support , Cervical Spine MRI 12/14/17 10:01 IMPRESSION: 1. 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 2. Borderline canal stenosis at C5-6 due to spondylosis. Electronically Signed: Laila Crabtree MD at 16:36 EDT Tel , Service support , Medical Necessity - Tobacco Use Smoking Status: Never smoker Tobacco Use: Non-smoker Assessment/Plan All Active Problems Pneumonia (Acute) RECOMMENDATIONS: 1. Continue antibiotics. Given that the patient had a positive MRSA screen and gram-positive cocci noted on Gram stain, will add vancomycin to antibiotic regimen. 2. Continue chest physiotherapy/PEP 3. Wean supplemental oxygen to maintain saturations at or above 90%. 4. There is no indication for emergent bronchoscopy. Recommend that the patient complete a treatment course of antibiotics, after which time, a repeat CT chest should be obtained in approximately 6 weeks. If there is continued radiographic abnormality noted in the left hilar region, would then proceed with bronchoscopy. IMPRESSIONS: 1. Acute hypoxic respiratory insufficiency Likely secondary to underlying pulmonary infectious process. The patient presented with a fever and has had a new/worsening cough, raising the concern for community-acquired pneumonia. She is currently on appropriate antibiotics. Following the initiation of chest physiotherapy, the patient has been able to expectorate sputum, and a sample was sent for culture. Would continue to wean supplemental oxygen as tolerated. Encourage incentive spirometer use and mobilize patient as tolerated. 2. Left perihilar community-acquired pneumonia/nonspecific mediastinal lymphadenopathy The radiographic findings noted on CT chest could certainly be medical detail representative of an underlying pulmonary infectious process, for which the patient is currently on treatment. Would recommend repeating a CT chest in approximately 4-6 weeks to document resolution. If the patient continues to have the aforementioned radiographic abnormalities, would then consider bronchoscopy at that time. 3. Ataxia Of unclear etiology. MRI brain revealed no pathology. Neurology is following. This note was generated with [employer] dictation software. It may contain incorrect words, spelling, and punctuation that were not noted in checking the note before signing. Code Visit Inpatient E&M: 32776 Subs Hosp L2
--- NOTE | 2017-12-16 07:47 | PN_ITS ---
Patient Problems: Active and Suspected Problems Pneumonia (Acute) Subjective: The patient was seen and examined at the bedside this morning. Events from the last 24 hours have been reviewed. The patient is currently afebrile, hemodynamically stable and maintaining appropriate oxygen saturations on 2 L/min via nasal cannula. She is currently resting comfortably in bed and reports the presence of a mild nonproductive cough. Objective: The patient's most recent lab work, culture data and imaging studies have all been personally reviewed. Strep and urine Legionella antigens were both negative. Urine culture is currently pending. MRI brain was unremarkable. Cervical spine MRI revealed moderate to severe foraminal stenosis at C3-6. CTA chest revealed no evidence for pulmonary embolism. Multiple mediastinal lymph nodes were identified with borderline size criteria. There is also evidence of a left perihilar consolidation with possible associated atelectasis. - Physical Exam General: Alert, Cooperative, No apparent distress HEENT: Atraumatic, PERRLA, Normocephalic Oral: No Gingival or Mucosal Lesions/ Ulcerations Neck: Supple, No Nodes, Trachea Midline Lungs: No rhonchi, No wheeze, No rales, Diminished Cardiovascular: Regular rate, Regular Rhythm, Normal S1, Normal S2, No murmurs Abdomen: Bowel Sounds Present, Soft, Non Tender Extremities: No clubbing, No cyanosis, No edema Skin: No breakdown Musculoskeletal: No Tenderness to Palpation of Joints or Extremities, No Muscle Wasting Lymphatic: No Cervical, Supraclavicular, or Inguinal Adenopathy Neurological: Cranial nerves II-XII grossly intact, Neuro grossly intact Psych/Mental Status: Normal Affect, Appropriate Vital Signs Temp Pulse Resp BP Pulse Ox 97.8 F 114 H 24 H 155/74 H 94 12/16/17 07:00 12/16/17 07:11 12/16/17 07:00 12/16/17 07:00 12/16/17 07:00 Oxygen Flow Rate (L/min) 2 Oxygen Delivery Method Nasal Cannula Weight: 149 lb 11.102 oz Body Mass Index (BMI) 26.5 Intake and Output for Last 24 Hours 12/14/17 12/15/17 12/16/17 23:59 23:59 23:59 Intake Total 1714 / 1714 600 / 600 400 / 400 Output Total 975 / 975 900 / 900 600 / 600 Balance 739 / 739 -300 / -300 -200 / -200 Microbiology Past 72 Hours 12/15/17 07:47 Gram Stain - Final Sputum, Expectorated/Coughed 12/13/17 18:34 Urine Culture - Final Urine, Clean Catch Mixed Gram Pos & Gram Neg Org 12/13/17 18:34 Streptococcus pneumoniae Antigen (M - Final Urine, Clean Catch 12/13/17 18:34 Legionella Antigen - Final Urine, Clean Catch Laboratory Tests Past 24 Hrs 12/15/17 12/15/17 12/15/17 10:00 10:00 19:45 WBC 6.0 RBC 4.65 Hgb 13.6 Hct 42.0 MCV 90.3 MCH 29.2 MCHC 32.4 RDW 14.5 RDW Differential 47.1 H Plt Count 107 L MPV 10.6 Sodium 135 L Potassium 3.7 Chloride 101 Carbon Dioxide 24.0 Anion Gap 10 BUN 10 Creatinine 0.54 L Estim Creat Clear Calc 37.85 Est GFR (MDRD) Af Amer 141 Est GFR (MDRD) Non-Af 116 BUN/Creatinine Ratio 18.5 Glucose 156 H Calcium 7.9 L Magnesium 2.3 Total Bilirubin 0.50 Direct Bilirubin 0.14 AST 40 H ALT 30 Alkaline Phosphatase 56 Ammonia Total Protein 6.8 Albumin 3.0 L Globulin 3.8 Urine Total Protein Urine Albumin U Zcekx-9-Dogujymf U Edten-5-Hhxcpbjc U Beta Globulin U Gamma Globulin U PEP M-Nikolas Ur Immunofix PEP Note 12/15/17 12/15/17 12/16/17 19:45 20:20 06:10 WBC 5.0 RBC 4.67 Hgb 13.9 Hct 41.1 MCV 88.0 MCH 29.8 MCHC 33.8 RDW 14.0 RDW Differential 45.2 H Plt Count 141 L MPV 10.3 Sodium Potassium Chloride Carbon Dioxide Anion Gap BUN Creatinine Estim Creat Clear Calc Est GFR (MDRD) Af Amer Est GFR (MDRD) Non-Af BUN/Creatinine Ratio Glucose Calcium Magnesium Total Bilirubin Direct Bilirubin AST ALT Alkaline Phosphatase Ammonia 20.0 Total Protein Albumin Globulin Urine Total Protein Cancelled Urine Albumin Cancelled U Lzrbn-5-Ceeqeosx Cancelled U Pizle-8-Rpygjbug Cancelled U Beta Globulin Cancelled U Gamma Globulin Cancelled U PEP M-Nikolas Cancelled Ur Immunofix PEP Note Cancelled 10/14/18 10/14/18 06:10 06:30 WBC RBC Hgb Hct MCV MCH MCHC RDW RDW Differential Plt Count MPV Sodium 137 Potassium 3.6 Chloride 100 Carbon Dioxide 28.0 Anion Gap 9 BUN 10 Creatinine 0.56 Estim Creat Clear Calc 37.85 Est GFR (MDRD) Af Amer 135 Est GFR (MDRD) Non-Af 112 BUN/Creatinine Ratio 17.9 Glucose 113 H Calcium 8.3 L Magnesium Total Bilirubin Direct Bilirubin AST ALT Alkaline Phosphatase Ammonia Total Protein Albumin Globulin Urine Total Protein Pending Urine Albumin Pending U Qhcvk-4-Bgpexqza Pending U Sbgby-3-Owkzivil Pending U Beta Globulin Pending U Gamma Globulin Pending U PEP M-Nikolas Pending Ur Immunofix PEP Note Clinical Impression(s) from Imaging Studies Head CTA 12/13/17 13:29 IMPRESSION: No CT evident acute intracranial process. Electronically Signed: John Brock MD at 16:16 EDT , Service support , Neck CTA 12/13/17 13:29 IMPRESSION: No CT evident hemodynamically significant stenosis of carotid vasculature. No aneurysm. No focal ectasia. Electronically Signed: John Brock MD at 16:31 EDT , Service support , Chest X-Ray 12/13/17 13:30 IMPRESSION: Multifocal bilateral alveolar opacifications consistent with foci of pneumonia and or atelectasis. Potential small left basilar pleural effusion. No pneumothorax. Moderate cardiomegaly versus pericardial fluid collection. Upon further review, findings throughout predominantly lung apices suggesting emphysema. Status post cholecystectomy. Electronically Signed: John Brock MD at 14:18 EDT , Service support , Chest CTA 12/13/17 14:29 IMPRESSION: No CT evidence of pulmonary embolism out to third order branching. No demonstrated vascular dissection. Dense perihilar consolidations with somewhat mass-like appearance to the left perihilar consolidation. Follow-up to exclude neoplasm highly recommended. Mildly pathologic by size criteria mediastinal and left hilar lymph nodes. These may simply be reactive. However, follow-up again recommended to assess stability. No pleural effusion. No pneumothorax. Electronically Signed: John Brock MD at 16:10 EDT , Service support , Brain MRI 12/13/17 18:49 IMPRESSION: Normal unenhanced and enhanced MRI of the brain. Electronically Signed: Liala Crabtree MD at 20:46 EDT Tel , Service support , Cervical Spine MRI 12/14/17 10:01 IMPRESSION: 1. 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 2. Borderline canal stenosis at C5-6 due to spondylosis. Electronically Signed: Laila Crabtree MD at 16:36 EDT Tel , Service support , Medical Necessity - Tobacco Use Smoking Status: Never smoker Tobacco Use: Non-smoker Assessment/Plan All Active Problems Pneumonia (Acute) RECOMMENDATIONS: 1. Continue antibiotics. Given that the patient had a positive MRSA screen and gram-positive cocci noted on Gram stain, will add vancomycin to antibiotic regimen. 2. Continue chest physiotherapy/PEP 3. Wean supplemental oxygen to maintain saturations at or above 90%. 4. There is no indication for emergent bronchoscopy. Recommend that the patient complete a treatment course of antibiotics, after which time, a repeat CT chest should be obtained in approximately 6 weeks. If there is continued radiographic abnormality noted in the left hilar region, would then proceed with bronchoscopy. IMPRESSIONS: 1. Acute hypoxic respiratory insufficiency Likely secondary to underlying pulmonary infectious process. The patient presented with a fever and has had a new/worsening cough, raising the concern for community-acquired pneumonia. She is currently on appropriate antibiotics. Following the initiation of chest physiotherapy, the patient has been able to expectorate sputum, and a sample was sent for culture. Would continue to wean supplemental oxygen as tolerated. Encourage incentive spirometer use and mobilize patient as tolerated. 2. Left perihilar community-acquired pneumonia/nonspecific mediastinal lymphadenopathy The radiographic findings noted on CT chest could certainly be lead generation representative of an underlying pulmonary infectious process, for which the patient is currently on treatment. Would recommend repeating a CT chest in approximately 4-6 weeks to document resolution. If the patient continues to have the aforementioned radiographic abnormalities, would then consider bronchoscopy at that time. 3. Ataxia Of unclear etiology. MRI brain revealed no pathology. Neurology is following. This note was generated with [employer] dictation software. It may contain incorrect words, spelling, and punctuation that were not noted in checking the note before signing. Code Visit Inpatient E&M: 83257 Subs Hosp L2
--- NOTE | 2017-12-16 08:59 | PN_ITS ---
Patient Problems: Active and Suspected Problems Pneumonia (Acute) Subjective: Patient seen ; patient is confused, was asking about admitting meeting being over. Had a low-grade temperature of 100.5 during the night. Breathing appears labored. Chest x-ray ordered for subsequent evaluation Objective: GENERAL: cooperative HEENT: Atraumatic; moist oral mucosa EYES; Anicteric, Normal Conjunctiva NECK; supple, normal thyroid, no distended JVD. RESPIRATORY: Diminished to auscultation bilaterally, CARDIOVASCULAR: Regular S1 S2, no audible murmurs GI: soft, non-tender, normoactive bowel sounds, : No Renal angle tenderness; EXTREMITIES: No edema, no clubbing, no cyanosis. MUSCULOSKELETAL: No Joint Tenderness; no muscle waisting NEURO: Awake; no lateralizing signs. SKIN: No Rash PSYCH; flat affect Vitals/I&O's: Vital Signs Temp Pulse Resp BP Pulse Ox 97.7 F L 106 H 20 H 151/68 H 93 12/16/17 08:00 12/16/17 08:00 12/16/17 08:00 12/16/17 08:00 12/16/17 08:00 Oxygen Flow Rate (L/min) 2 Oxygen Delivery Method Nasal Cannula Weight: 67.9 kg Body Mass Index (BMI) 26.5 Intake and Output for Last 24 Hours 12/14/17 12/15/17 12/16/17 23:59 23:59 23:59 Intake Total 1714 / 1714 600 / 600 400 / 400 Output Total 975 / 975 900 / 900 600 / 600 Balance 739 / 739 -300 / -300 -200 / -200 Microbiology Past 72 Hours 12/15/17 07:47 Sputum, Expectorated/Coughed Gram Stain - Final 12/13/17 18:34 Urine, Clean Catch Urine Culture - Final Mixed Gram Pos & Gram Neg Org 12/13/17 18:34 Urine, Clean Catch Streptococcus pneumoniae Antigen (M - Final 12/13/17 18:34 Urine, Clean Catch Legionella Antigen - Final Laboratory Results 12/15/17 10:00: Sodium 135 L, Potassium 3.7, Chloride 101, Carbon Dioxide 24.0, Anion Gap 10, BUN 10, Creatinine 0.54 L, Estim Creat Clear Calc 37.85, Est GFR (MDRD) Af Amer 141, Est GFR (MDRD) Non-Af 116, BUN/Creatinine Ratio 18.5, Glucose 156 H, Calcium 7.9 L, Magnesium 2.3 12/15/17 10:00: WBC 6.0, RBC 4.65, Hgb 13.6, Hct 42.0, MCV 90.3, MCH 29.2, MCHC 32.4, RDW 14.5, RDW Differential 47.1 H, Plt Count 107 L, MPV 10.6 12/15/17 19:45: Total Bilirubin 0.50, Direct Bilirubin 0.14, AST 40 H, ALT 30, Alkaline Phosphatase 56, Total Protein 6.8, Albumin 3.0 L, Globulin 3.8 12/15/17 19:45: Ammonia 20.0 12/15/17 20:20: Urine Total Protein Cancelled, Urine Albumin Cancelled, U Idfke-0-Mzfzxstm Cancelled, U Ierii-3-Vfdhybxr Cancelled, U Beta Globulin Cancelled, U Gamma Globulin Cancelled, U PEP M-Nikolas Cancelled, Ur Immunofix PEP Note Cancelled 12/16/17 06:10: WBC 5.0, RBC 4.67, Hgb 13.9, Hct 41.1, MCV 88.0, MCH 29.8, MCHC 33.8, RDW 14.0, RDW Differential 45.2 H, Plt Count 141 L, MPV 10.3 12/16/17 06:10: Sodium 137, Potassium 3.6, Chloride 100, Carbon Dioxide 28.0, Anion Gap 9, BUN 10, Creatinine 0.56, Estim Creat Clear Calc 37.85, Est GFR (MDRD) Af Amer 135, Est GFR (MDRD) Non-Af 112, BUN/Creatinine Ratio 17.9, Glucose 113 H, Calcium 8.3 L 12/16/17 06:30: Urine Total Protein Pending, Urine Albumin Pending, U Gjosv-3-Jfxogxwl Pending, U Gibzv-5-Immrpxyc Pending, U Beta Globulin Pending, U Gamma Globulin Pending, U PEP M-Nikolas Pending Current Medications Acetaminophen (Tylenol) 650 mg PO Q6H PRN PRN PRN Reason: Fever >101 Last Admin: 12/15/17 01:07 Dose: 650 mg Acetylcysteine (Mucomyst) 400 mg INHALATION Q6H.RT KEENA Last Admin: 12/16/17 06:47 Dose: 400 mg Albuterol/Ipratropium (Duoneb) 3 ml INHALATION Q6H.[facility] Last Admin: 12/16/17 06:47 Dose: 3 ml Enoxaparin Sodium (Lovenox) 40 mg SC DAILY@1000 [facility] Last Admin: 12/15/17 08:06 Dose: 40 mg Famotidine (Pepcid) 40 mg PO DAILY [facility] Last Admin: 12/15/17 08:06 Dose: 40 mg Guaifenesin (Mucinex) 1,200 mg PO BID [facility] Last Admin: 12/15/17 22:16 Dose: 1,200 mg Sodium Chloride () 1,000 mls @ 0 mls/hr IV .Q0M [facility] Last Admin: 12/13/17 14:21 Dose: 15 mls/hr Azithromycin 500 mg/ Dextrose 255 mls @ 250 mls/hr IV Q24 [facility] Last Admin: 12/15/17 08:06 Dose: 250 mls/hr Ceftriaxone Sodium 2 gm/ (Sodium Chloride) 50 mls @ 100 mls/hr IV DAILY [facility] Last Admin: 12/15/17 08:06 Dose: 100 mls/hr Magnesium Hydroxide (Milk Of Magnesia) 30 ml PO DAILY PRN PRN PRN Reason: Constipation Sodium Chloride () 5 - 30 ml IV UD PRN PRN Reason: SALINE FLUSH Last Admin: 12/14/17 09:43 Dose: 5 ml Medical Necessity - Tobacco Use Smoking Status: Never smoker Tobacco Use: Non-smoker Assessment/Plan All Active Problems Pneumonia (Acute) Patient is a 77-year-old lady who was brought to the emergency department by the on account of progressive generalized weakness, cough as well as low- grade fever. Imaging studies obtained in the emergency department demonstrated Dense perihilar consolidations with somewhat mass-like appearance to the left perihilar consolidation. Presumptive diagnosis of community-acquired pneumonia was made patient admitted to a monitored bed for further management. 1. Acute respiratory insufficiency this was attributed to pneumonia: Suspected to be secondary to streptococci pneumo Blood and sputum cultures sent. Patient placed onRocephin and Zithromax. She was also placed on oxygen titrated to keep also is greater than 90 . Repeat checks x-ray ordered for subsequent evaluation 2. Suspected lung mass with nonspecific mediastinal lymphadenopathy. Consultation was placed to Dr. Cruz with pulmonary medicine. He did see the patient and plan is for patient to have a repeat CT of the chest in 4-6 weeks 3. Mediastinal lymphadenopathy management as discussed above 4. Questionable ataxia MRI of the brain was negative for acute CVA ; patient was placed to Dr. Wong with neurology who recommended obtaining MRI C spine w/o contrast as well as subsequent evaluation with Vitamin B12 level, Vitamin D level, TSH, Hba1c, LAUREN/ANCA/SSa/SSb AB/RF, SPEP with CLARKE and UPEP with CLARKE patient to subsequently undergo EMG and nerve conduction studies involving the lower extremities as outpatient when discharged. Results of serological test pending 5. Acute cystitis patient on antibiotics 6. DVT prophylaxis; Lovenox 7. Acute encephalopathy do suspect underlying dementia perform episodic confusion patient does not exhibit any behavior agitation Active Medications Acetaminophen (Tylenol) 650 mg PO Q6H PRN PRN PRN Reason: Fever >101 Last Admin: 12/15/17 01:07 Dose: 650 mg Acetylcysteine (Mucomyst) 400 mg INHALATION Q6H.RT [facility] Last Admin: 12/16/17 06:47 Dose: 400 mg Albuterol/Ipratropium (Duoneb) 3 ml INHALATION Q6H.RT [facility] Last Admin: 12/16/17 06:47 Dose: 3 ml Enoxaparin Sodium (Lovenox) 40 mg SC DAILY@1000 [facility] Last Admin: 12/15/17 08:06 Dose: 40 mg Famotidine (Pepcid) 40 mg PO DAILY [facility] Last Admin: 12/15/17 08:06 Dose: 40 mg Guaifenesin (Mucinex) 1,200 mg PO BID [facility] Last Admin: 12/15/17 22:16 Dose: 1,200 mg Sodium Chloride () 1,000 mls @ 0 mls/hr IV .Q0M [facility] Last Admin: 12/13/17 14:21 Dose: 15 mls/hr Azithromycin 500 mg/ Dextrose 255 mls @ 250 mls/hr IV Q24 [facility] Last Admin: 12/15/17 08:06 Dose: 250 mls/hr Ceftriaxone Sodium 2 gm/ (Sodium Chloride) 50 mls @ 100 mls/hr IV DAILY [facility] Last Admin: 12/15/17 08:06 Dose: 100 mls/hr Magnesium Hydroxide (Milk Of Magnesia) 30 ml PO DAILY PRN PRN PRN Reason: Constipation Sodium Chloride () 5 - 30 ml IV UD PRN PRN Reason: SALINE FLUSH Last Admin: 12/14/17 09:43 Dose: 5 ml Code Visit Inpatient E&M: 50348 Subs Hosp L2
--- NOTE | 2017-12-16 09:13 | RAD_ITS ---
STUDY: X-RAY CHEST REASON FOR EXAM: Female, 77 years old. Shortness of breath hypoxia TECHNIQUE: 5 COMPARISON: December 13, 2017 chest x-ray FINDINGS: The lungs are underexpanded. There is patchy upper lobe lingular opacity. There is no demonstrated pleural abnormality. There is mild cardiac enlargement. Normal mediastinum and josiah. Normal visualized pulmonary arteries. Normal visualized aortic arch and descending thoracic aorta. Normal visualized thoracic spine. Normal visualized ribs, clavicles, and shoulders. There is no demonstrated abnormality of the visualized soft tissue structures of the upper abdomen. RAD/Chest 1 View (Portable) IMPRESSION: Left upper lobe left lingular pneumonia. Electronically Signed: Jessica Quinones MD at 11:42 EDT Tel , Service support ,
[2017-12-16] MEDS: Famotidine 20 MG Tablet 40 MG PO (09:38)
[2017-12-16] MEDS: Enoxaparin 40 MG/0.4 ML Syringe SC (09:38)
[2017-12-16] MEDS: guaiFENesin 1,200 MG Tablet 1200 MG PO ×2 (09:38→21:16)
[2017-12-16] MEDS: 0.9% NaCl Peripheral Flush Adult/Peds IV ×2 (09:42→21:16)
--- NOTE | 2017-12-16 11:14 | PHA.PHARE_ITS ---
Consult Pharmacy has been consulted to manage selected antiobiotic: Vancomycin Type of Consult: New start Suspected Infection: Other Labs: Sodium 137 mmol/L (136-145) 12/16/17 06:10 Potassium 3.6 mmol/L (3.5-5.1) 12/16/17 06:10 Chloride 100 mmol/L (98-107) 12/16/17 06:10 Carbon Dioxide 28.0 mmol/L (21.0-32.0) 12/16/17 06:10 Anion Gap 9 (5-15) 12/16/17 06:10 BUN 10 mg/dL (7-18) 12/16/17 06:10 Creatinine 0.56 mg/dL (0.55-1.02) 12/16/17 06:10 Est GFR (MDRD) Af Amer 135 mL/min (>60) 12/16/17 06:10 Est GFR (MDRD) Non-Af 112 mL/min (>60) 12/16/17 06:10 BUN/Creatinine Ratio 17.9 RATIO (10-20) 12/16/17 06:10 Glucose 113 mg/dL (74-106) H 12/16/17 06:10 Microbiology: Microbiology 12/15/17 07:47 Sputum, Expectorated/Coughed Gram Stain - Final 12/15/17 07:47 Sputum, Expectorated/Coughed Respiratory Culture - Preliminary Appears to be normal respiratory jimenez. Further studies to follow. 12/13/17 18:34 Urine, Clean Catch Urine Culture - Final Mixed Gram Pos & Gram Neg Org 12/13/17 18:34 Urine, Clean Catch Streptococcus pneumoniae Antigen (M - Final 12/13/17 18:34 Urine, Clean Catch Legionella Antigen - Final Weight used for dosin.9 kg Estimated Creatinine Clearance: 38 ML/MIN Goal Trough: 15-20 mcg/mL Pharmacy Plan for Drug Dosing: Start with an initial loading dose of 1750mg IV (25 mg/kg), then continue with 1000mg IV q24h as per the [facility] pharmacist-managed IV vancomycin dosing protocol. Obtain trough before the 3rd dose. Pharmacy Service will continue to monitor and adjust dosing as required. Follow-Up Labs: Trough Vancomycin Labs to be done on [date and time ordered]: 12/18/17 @ 10:30 before the dose at 11:00
[2017-12-17] VITALS (15 sets, daily range): BP systolic 143–188; BP diastolic 80–82; PULSE 93–126; RESP 16–18; TEMP 36.8–37.3; O2SAT 89–96
[2017-12-17] MEDS: Acetylcysteine 800 MG/4 ML VIAL.NEB. 400 MG INHALATION ×4 (01:03→18:55)
[2017-12-17] MEDS: Ipratropium/Albuterol Sulfate 3 ML AMPUL.NEB INHALATION ×4 (01:03→18:55)
[2017-12-17] MEDS: 0.9% NaCl Peripheral Flush Adult/Peds IV ×3 (04:26→10:23)
[2017-12-17 05:52] LABS: Hematocrit 39.7 % (37-47); Hemoglobin 13.3 g/dl (12.0-15.0); Mean Corp Hgb Conc 33.5 g/gl (32-36); Mean Corpuscular Hgb 29.6 pg (27.0-32.0); Mean Corpuscular Volume 88.2 fL (81-99); Mean Platelet Vol. 10.3 fl (6.2-12.0); Platelet Count 172 K/mm3 (150-450); RBC Distribution Width CV 13.9 % (11.6-14.6); RBC Distribution Width SD 44.7 fl (35.1-43.9); White Blood Count 5.3 K/mm3 (4.4-11.0)
[2017-12-17 06:06] LABS: Scan Indicated on CBC? Y/N NO
[2017-12-17 06:11] LABS: Anion Gap 8 (5-15); BUN 8 mg/dL (7-18); BUN/Creat Ratio 14.9 RATIO (10-20); Calcium,Total 8.5 mg/dL (8.5-10.1); Chloride 102 mmol/L (98-107); Creatinine, Serum 0.54 mg/dL (0.55-1.02); EST Glomerular Filtration Rate 118 mL/min (>60); Est Glom Filt Rate - Afr Amer 142 mL/min (>60); Estimated Creatinine Clearance 37.85 ml/min; Glucose 116 mg/dL (74-106); Potassium 3.2 mmol/L (3.5-5.1); Sodium Level 139 mmol/L (136-145)
[2017-12-17] MEDS: Famotidine 20 MG Tablet 40 MG PO (09:32)
[2017-12-17] MEDS: Enoxaparin 40 MG/0.4 ML Syringe SC (09:32)
[2017-12-17] MEDS: guaiFENesin 1,200 MG Tablet 1200 MG PO ×2 (09:32→21:14)
--- NOTE | 2017-12-17 13:06 | PCM.PROGNOTE ---
Patient Problems: Active and Suspected Problems Pneumonia (Acute) Subjective: Patient feels subjectively improved compared to previous. Patient reports less dyspnea on exertion and believes her cough is improving. Patient does report good response to Acapella therapy. Patient denies any chest pain at this time. Patient is still on supplemental oxygen at 2 L/min. Patient reports she was not using supplemental oxygen prior to hospitalization. Objective: Chest x-ray from 12/16/2017 was personally reviewed and shows a left upper lobe pneumonia. - Physical Exam General: Alert, Oriented x3, Cooperative, No apparent distress HEENT: Atraumatic, PERRLA, EOMI, Normocephalic, - - No scleral icterus or injection noted. Oral: Moist Mucosa, No Gingival or Mucosal Lesions/ Ulcerations Neck: Supple, No JVD, No Nodes, Trachea Midline Lungs: No rhonchi, No wheeze, No rales, Diminished, - - Symmetric expansion. No dullness to percussion. Cardiovascular: Regular rate, Regular Rhythm, Normal S1, Normal S2, No murmurs, No rub noted, No Gallop Abdomen: Bowel Sounds Present, Soft, Non Tender, Non-Distended Extremities: No clubbing, No cyanosis, No edema, Capillary Refill Less than 3 Seconds Skin: No rashes, No breakdown Musculoskeletal: No Tenderness to Palpation of Joints or Extremities Lymphatic: No Cervical, Supraclavicular, or Inguinal Adenopathy Neurological: Cranial nerves II-XII grossly intact, Neuro grossly intact, Motor Exam 5/5 strength throughout Psych/Mental Status: Normal Affect, Appropriate Vital Signs Temp Pulse Resp BP Pulse Ox 36.9 C 93 18 152/82 H 93 12/17/17 09:30 12/17/17 11:00 12/17/17 09:30 12/17/17 09:30 12/17/17 09:30 Oxygen Flow Rate (L/min) 2 Oxygen Delivery Method Room Air Weight: 67.9 kg Body Mass Index (BMI) 26.5 Intake and Output for Last 24 Hours 12/15/17 12/16/17 12/17/17 23:59 23:59 23:59 Intake Total 600 / 600 2313 / 2313 235 / 235 Output Total 900 / 900 800 / 800 Balance -300 / -300 1513 / 1513 235 / 235 Microbiology Past 72 Hours 10/13/18 07:47 Gram Stain - Final Sputum, Expectorated/Coughed Respiratory Culture - Final Presumptive C albicans 12/13/17 18:34 Urine Culture - Final Urine, Clean Catch Mixed Gram Pos & Gram Neg Org 12/13/17 18:34 Streptococcus pneumoniae Antigen (M - Final Urine, Clean Catch 12/13/17 18:34 Legionella Antigen - Final Urine, Clean Catch Laboratory Tests Past 24 Hrs 12/17/17 12/17/17 12/17/17 05:24 05:24 05:24 WBC 5.3 RBC 4.50 Hgb 13.3 Hct 39.7 MCV 88.2 MCH 29.6 MCHC 33.5 RDW 13.9 RDW Differential 44.7 H Plt Count 172 MPV 10.3 Sodium 139 Potassium 3.2 L Chloride 102 Carbon Dioxide 29.0 Anion Gap 8 BUN 8 Creatinine 0.54 L Estim Creat Clear Calc 37.85 Est GFR (MDRD) Af Amer 142 Est GFR (MDRD) Non-Af 118 BUN/Creatinine Ratio 14.9 Glucose 116 H Calcium 8.5 Miscellaneous Test Pending Medical Necessity - Tobacco Use Smoking Status: Never smoker Tobacco Use: Non-smoker Assessment/Plan All Active Problems Pneumonia (Acute) RECOMMENDATIONS: 1. Okay to discontinue vancomycin given negative staph 2. Continue chest physiotherapy/PEP 3. Wean supplemental oxygen to maintain saturations at or above 90%. 4. No inpatient bronchoscopy. Potential outpatient bronchoscopy IMPRESSIONS: 1. Acute hypoxic respiratory insufficiency Likely secondary to underlying pulmonary infectious process. Sputum culture does not show any staph aureus species. Will discontinue vancomycin. Continue on other antibiotics. Aggressive chest physiotherapy. Will obtain a walking oximetry for evaluation of oxygen status. Outpatient complete pulmonary function test would be appropriate. 2. Left perihilar community-acquired pneumonia/nonspecific mediastinal lymphadenopathy The radiographic findings noted on CT chest could certainly be automobile rental representative of an underlying pulmonary infectious process, for which the patient is currently on treatment. Would recommend repeating a CT chest in approximately 4-6 weeks to document resolution. If the patient continues to have the aforementioned radiographic abnormalities, would then consider bronchoscopy at that time. 3. Ataxia Of unclear etiology. MRI brain revealed no pathology. Neurology is following. Code Visit Inpatient E&M: 31975 Subs Hosp L2
--- NOTE | 2017-12-17 15:20 | DCINST_ITS ---
- Discharge Diagnoses Current Active Problems: Current Active and Chronic Problems Pneumonia (Acute) Balance problem (Chronic) You will use the following diet at home:: No restrictions Your food should be the consistency of: Regular Discharge Activity: Return to Normal Activity Call your doctor if you observe: Fever of 101 or Higher Allergies/Adverse Reactions: Allergies No Known Allergies Allergy (Verified 12/13/17 12:11) Medications to take at Discharge Ranitidine [Zantac] 300 mg PO DAILY 12/13/17 Albuterol Inhaler [Ventolin Hfa] 2 puff INHALATION Q4H PRN PRN #1 inhaler 12/17/17 Guaifenesin [Mucinex] 1,200 mg PO BID #10 tablet 12/17/17 Levofloxacin [Levaquin] 500 mg PO DAILY #5 tablet 12/17/17 The following prescriptions were given: Albuterol Inhaler [Ventolin Hfa] 2 puff INHALATION Q4H PRN PRN #1 inhaler PRN Reason: Shortness Of Breath Levofloxacin [Levaquin] 500 mg PO DAILY #5 tablet Guaifenesin [Mucinex] 1,200 mg PO BID #10 tablet Orders to be completed after discharge: Chest without Contrast [CT] Time Frame: 6 Weeks, Location: None Selected Physical Therapy Evaluation Time Frame: 1 Week, Location: None Selected Primary Care Physician: Chauncey Lu DO [Primary Care Provider] - Within 2 Weeks Test Results: Test results from this visit will be discussed in further detail at your follow- up appointment, if applicable. Please Follow Up With: Raymond Cruz DO When: 1-2 months Please Follow Up With: Radha Wong MD When: 4-6 weeks. Proposed Discharge Date: 12/17/17
--- NOTE | 2017-12-17 15:27 | CASEMGMT ---
Therapy recommending further skilled therapy at this time. This RN CM to room to speak with pt regarding same at this time and pt declines HHC at this time but is willing to have a script for OP therapy and is aware that if she needs anything further once home, she can contact PCP, voices understanding. Pt voices no further concerns/needs at this time. Pt is still awaiting SUPERVISOR PIPELINE to see her today. Dulce RN is aware of all at this time, voices understanding. Marivel CABALLERO CM
--- NOTE | 2017-12-17 15:30 | CHAPLAIN ---
Type of Pastoral Visit _x__ Initial Visit ___ Follow-up Visit ___ On-call Visit ___ General Patient Visit ___ Spiritual Assessment ___ Family Conference ___ Bereavement ___ Rapid Response ___ Code Blue ___ Other (describe below) Pastoral Care Referral From _x__ Patient ___ Family ___ Nurse ___ Physician ___ Hairspring Staker ___ Milk Route Supervisor ___ Other (describe below) Sacrament/Intervention _x__ Active listening ___ Anointing ___ Muslim ___ Bereavement ___ Communion ___ Wendie exploration ___ _x__ Life review _x__ Prayer ___ Reconciliation ___ Sacrament of Sick _x__ Supportive presence ___ Wedding ___ Other (describe below) Pastoral Comments
--- NOTE | 2017-12-17 15:31 | DS.PCM_ITS ---
Discharge Date and Diagnosis - Problem List Patient Problems: Active and Suspected Problems Pneumonia (Acute) Date of Admission: 12/13/17 Date of Discharge: 12/17/17 - Primary Discharge Diagnosis Active and Suspected Problems Pneumonia (Acute) - Secondary Discharge Diagnosis Chronic Problems Balance problem (Chronic) Hospital Course and Treatment Imaging Results: Presents to ED with cough, malaise and SOB. Found to have LLL infiltrate and started on ceftriaxone. Seen by pulmonology who recommended follow up in office as well as follow CT chest in 4-6 weeks for resolution of pneumonia. Patient had acute hypoxic respiratory insufficiency, but failure ruled out. Patient ambulated today on room air and sats dropped only to 89%, therefore, will not qualify for home oxygen. Patient also with ataxia. She underwent an MRI of her brain that was unremarkable. MRI cervical spine showed only stenosis. Vasculitis panel ordered by neurology and is pending. Patient will follow up with neurology and have an outpt EMG/NCT. Pt feels she is not homebound, but will consider outpt PT. Operations: None Procedures: None Summary of Care Provided: The patient is a 77 year old F [] Patient Problems: Active and Suspected Problems Pneumonia (Acute) - Physical Exam General: Alert, Cooperative, No apparent distress HEENT: Atraumatic Oral: Moist Mucosa, No Gingival or Mucosal Lesions/ Ulcerations Neck: No Nodes, Thyroid Normal Size and Texture Lungs: No rhonchi, No wheeze, Diminished Cardiovascular: Regular rate, Regular Rhythm, Normal S1, Normal S2 Abdomen: Bowel Sounds Present, Soft, Non Tender, Non-Distended, No Hepato- splenomegaly Extremities: No edema, No Calf Tenderness Vital Signs Temp Pulse Resp BP Pulse Ox 36.9 C 105 H 16 152/82 H 94 12/17/17 09:30 12/17/17 13:46 12/17/17 13:46 12/17/17 09:30 12/17/17 14:15 Oxygen Flow Rate (L/min) [ 2 AMBULATION with Oxygen] Oxygen Flow Rate (L/min) [ 0 AMBULATING on Room Air] Oxygen Flow Rate (L/min) [At 0 REST on Room Air] Oxygen Flow Rate (L/min) 2 Oxygen Delivery Method Nasal Cannula Weight: 67.9 kg Body Mass Index (BMI) 26.5 Intake and Output for Last 24 Hours 12/15/17 12/16/17 12/17/17 23:59 23:59 23:59 Intake Total 600 / 600 2313 / 2313 235 / 235 Output Total 900 / 900 800 / 800 Balance -300 / -300 1513 / 1513 235 / 235 Microbiology Past 72 Hours 12/15/17 07:47 Gram Stain - Final Sputum, Expectorated/Coughed Respiratory Culture - Final Presumptive C albicans 12/13/17 18:34 Urine Culture - Final Urine, Clean Catch Mixed Gram Pos & Gram Neg Org Laboratory Tests Past 24 Hrs 12/17/17 12/17/17 12/17/17 05:24 05:24 05:24 WBC 5.3 RBC 4.50 Hgb 13.3 Hct 39.7 MCV 88.2 MCH 29.6 MCHC 33.5 RDW 13.9 RDW Differential 44.7 H Plt Count 172 MPV 10.3 Sodium 139 Potassium 3.2 L Chloride 102 Carbon Dioxide 29.0 Anion Gap 8 BUN 8 Creatinine 0.54 L Estim Creat Clear Calc 37.85 Est GFR (MDRD) Af Amer 142 Est GFR (MDRD) Non-Af 118 BUN/Creatinine Ratio 14.9 Glucose 116 H Calcium 8.5 Miscellaneous Test Pending Discharge Activity: Return to Normal Activity Call your doctor if you observe: Fever of 101 or Higher Home Medications: Medications to take at Discharge Ranitidine [Zantac] 300 mg PO DAILY 12/13/17 Albuterol Inhaler [Ventolin Hfa] 2 puff INHALATION Q4H PRN PRN #1 inhaler 12/17/17 Guaifenesin [Mucinex] 1,200 mg PO BID #10 tablet 12/17/17 Levofloxacin [Levaquin] 500 mg PO DAILY #5 tablet 12/17/17 Following Prescrptions Were Given to Patient: Albuterol Inhaler [Ventolin Hfa] 2 puff INHALATION Q4H PRN PRN #1 inhaler PRN Reason: Shortness Of Breath Levofloxacin [Levaquin] 500 mg PO DAILY #5 tablet Guaifenesin [Mucinex] 1,200 mg PO BID #10 tablet Other Amb Orders: Chest without Contrast [CT] Time Frame: 6 Weeks, Location: None Selected Physical Therapy Evaluation Time Frame: 1 Week, Location: None Selected Primary Care Physician: Chauncey Lu DO [Primary Care Provider] - Within 2 Weeks Please Follow Up With: Raymond Cruz DO When: 1-2 months Please Follow Up With: Radha Wong MD When: 4-6 weeks. Medical Necessity - Tobacco Use Smoking Status: Never smoker Tobacco Use: Non-smoker Meaningful Use Info Meaningful Use Diagnoses (Choose all that apply): None applicable Code Visit Inpatient E&M: 06383 Disch Hosp
[2017-12-17 16:21] LABS: ANTINUCLEAR ANTIBODIES DIRECT Negative (Negative)
[2017-12-18] VITALS (8 sets, daily range): BP systolic 138–149; BP diastolic 61–82; PULSE 88–118; RESP 16–20; TEMP 36.7–37.3; O2SAT 94–96
[2017-12-18] MEDS: Ipratropium/Albuterol Sulfate 3 ML AMPUL.NEB INHALATION ×2 (01:21→07:19)
[2017-12-18 08:01] LABS: Anion Gap 9 (5-15); BUN 6 mg/dL (7-18); BUN/Creat Ratio 12.4 RATIO (10-20); Calcium,Total 8.4 mg/dL (8.5-10.1); Chloride 102 mmol/L (98-107); Creatinine, Serum 0.48 mg/dL (0.55-1.02); EST Glomerular Filtration Rate 132 mL/min (>60); Est Glom Filt Rate - Afr Amer 160 mL/min (>60); Estimated Creatinine Clearance 37.85 ml/min; Glucose 102 mg/dL (74-106); Potassium 3.1 mmol/L (3.5-5.1); Sodium Level 140 mmol/L (136-145)
--- NOTE | 2017-12-18 09:42 | CASEMGMT ---
Addendum entered by Esperanza Castaneda 12/18/17 09:59: SW received return call from patient's . SW spoke with him about going somewhere for rehab. Discussed [facility] and other [facility] SNF's. SW explained Medicare coverage for SNF. He was in agreement with TCU. JAOSN spoke with Yvonne and there is a bed in TCU for patient. JASON notified RN, secretary office clerk, and extension service specialist in charge. Esperanza WEISS Original Note: Patient is alert and oriented X2 per RN. JASON called patient's and left him a voice mail requesting a return call regarding d/c plan. Esperanza WEISS
[2017-12-18] MEDS: 0.9% NaCl Peripheral Flush Adult/Peds IV ×3 (09:53→10:00)
[2017-12-18] MEDS: guaiFENesin 1,200 MG Tablet 1200 MG PO (09:54)
[2017-12-18] MEDS: Enoxaparin 40 MG/0.4 ML Syringe SC (09:54)
[2017-12-18] MEDS: Famotidine 20 MG Tablet 40 MG PO (09:54)
--- NOTE | 2017-12-18 11:58 | PCM.PN.HOSP ---
Patient Problems: Active and Suspected Problems Pneumonia (Acute) Subjective: No new events. Confused yesterday. Still too weak. Plan was transfer to SNF instead. Vitals/I&O's: Vital Signs Temp Pulse Resp BP Pulse Ox 37.3 C H 98 16 139/62 H 95 12/18/17 09:26 12/18/17 11:51 12/18/17 09:26 12/18/17 09:26 12/18/17 09:26 Oxygen Flow Rate (L/min) [ 2 AMBULATION with Oxygen] Oxygen Flow Rate (L/min) [ 0 AMBULATING on Room Air] Oxygen Flow Rate (L/min) [At 0 REST on Room Air] Oxygen Flow Rate (L/min) 2 Oxygen Delivery Method Nasal Cannula Weight: 67.9 kg Body Mass Index (BMI) 26.5 Intake and Output for Last 24 Hours 12/16/17 12/17/17 12/18/17 23:59 23:59 23:59 Intake Total 2313 / 2313 856 / 856 Output Total 800 / 800 300 / 300 100 / 100 Balance 1513 / 1513 556 / 556 -100 / -100 General: Alert, Cooperative, No apparent distress HEENT: Atraumatic, Normocephalic Oral: Moist Mucosa, No Gingival or Mucosal Lesions/ Ulcerations Neck: No Nodes, Thyroid Normal Size and Texture Lungs: Clear to auscultation, Normal air movement, No rhonchi, No wheeze Cardiovascular: Regular rate, Regular Rhythm, Normal S1, Normal S2, No murmurs Abdomen: Bowel Sounds Present, Soft, Non Tender, Non-Distended Microbiology Past 72 Hours 12/15/17 07:47 Sputum, Expectorated/Coughed Gram Stain - Final 12/15/17 07:47 Sputum, Expectorated/Coughed Respiratory Culture - Final Presumptive C albicans 12/13/17 18:34 Urine, Clean Catch Urine Culture - Final Mixed Gram Pos & Gram Neg Org Laboratory Results 12/14/17 11:30: LAUREN Screen Negative, FAITH-1 Antibody Not Reportable, SS-A/Ro IgG Antibody Not Reportable, SS-B/La IgG Antibody Not Reportable, Sm (Canchola) Antibody Not Reportable, BENCH MANAGER Antibody Not Reportable, Scl-70 Scleroderma Ab Not Reportable, Double Strand DNA Ab Not Reportable, Centromere B Antibody Not Reportable 12/18/17 06:50: Sodium 140, Potassium 3.1 L, Chloride 102, Carbon Dioxide 29.0, Anion Gap 9, BUN 6 L, Creatinine 0.48 L, Estim Creat Clear Calc 37.85, Est GFR (MDRD) Af Amer 160, Est GFR (MDRD) Non-Af 132, BUN/Creatinine Ratio 12.4, Glucose 102, Calcium 8.4 L Current Medications Acetaminophen (Tylenol) 650 mg PO Q6H PRN PRN PRN Reason: Fever >101 Last Admin: 12/15/17 01:07 Dose: 650 mg Acetylcysteine (Mucomyst) 400 mg INHALATION Q6H.RT [facility] Last Admin: 12/18/17 07:40 Dose: Not Given Albuterol/Ipratropium (Duoneb) 3 ml INHALATION Q6H.RT [facility] Last Admin: 12/18/17 07:19 Dose: 3 ml Enoxaparin Sodium (Lovenox) 40 mg SC DAILY@1000 [facility] Last Admin: 12/18/17 09:54 Dose: 40 mg Famotidine (Pepcid) 40 mg PO DAILY [facility] Last Admin: 12/18/17 09:54 Dose: 40 mg Guaifenesin (Mucinex) 1,200 mg PO BID [facility] Last Admin: 12/18/17 09:54 Dose: 1,200 mg Sodium Chloride () 1,000 mls @ 0 mls/hr IV .Q0M [facility] Last Admin: 12/13/17 14:21 Dose: 15 mls/hr Ceftriaxone Sodium 2 gm/ (Sodium Chloride) 50 mls @ 100 mls/hr IV DAILY [facility] Last Admin: 12/18/17 09:53 Dose: 100 mls/hr Magnesium Hydroxide (Milk Of Magnesia) 30 ml PO DAILY PRN PRN PRN Reason: Constipation Sodium Chloride () 5 - 30 ml IV UD PRN PRN Reason: SALINE FLUSH Last Admin: 12/18/17 10:00 Dose: 10 ml Medical Necessity - Tobacco Use Smoking Status: Never smoker Tobacco Use: Non-smoker Assessment/Plan All Active Problems Pneumonia (Acute) 1. Presumed pneumococcal pneumonia continue Levaquin follow up CT in 4-6 weeks follow up with pulmonology in 1-2 months 2. Ataxia: work up unremarkable follow up with Neurology in 1-2 months outpt EMG/NCT follow up labs that were drawn during this admission 3. Debility to TCU today. Code Visit Inpatient E&M: 34586 Disch Hosp - change billing of note from 12/17 to .
--- NOTE | 2017-12-18 12:02 | PN_ITS ---
Patient Problems: Active and Suspected Problems Pneumonia (Acute) Subjective: No new events. Confused yesterday. Still too weak. Plan was transfer to SNF instead. Vitals/I&O's: Vital Signs Temp Pulse Resp BP Pulse Ox 37.3 C H 98 16 139/62 H 95 12/18/17 09:26 12/18/17 11:51 12/18/17 09:26 12/18/17 09:26 12/18/17 09:26 Oxygen Flow Rate (L/min) [ 2 AMBULATION with Oxygen] Oxygen Flow Rate (L/min) [ 0 AMBULATING on Room Air] Oxygen Flow Rate (L/min) [At 0 REST on Room Air] Oxygen Flow Rate (L/min) 2 Oxygen Delivery Method Nasal Cannula Weight: 67.9 kg Body Mass Index (BMI) 26.5 Intake and Output for Last 24 Hours 12/16/17 12/17/17 12/18/17 23:59 23:59 23:59 Intake Total 2313 / 2313 856 / 856 Output Total 800 / 800 300 / 300 100 / 100 Balance 1513 / 1513 556 / 556 -100 / -100 General: Alert, Cooperative, No apparent distress HEENT: Atraumatic, Normocephalic Oral: Moist Mucosa, No Gingival or Mucosal Lesions/ Ulcerations Neck: No Nodes, Thyroid Normal Size and Texture Lungs: Clear to auscultation, Normal air movement, No rhonchi, No wheeze Cardiovascular: Regular rate, Regular Rhythm, Normal S1, Normal S2, No murmurs Abdomen: Bowel Sounds Present, Soft, Non Tender, Non-Distended Microbiology Past 72 Hours 12/15/17 07:47 Sputum, Expectorated/Coughed Gram Stain - Final 12/15/17 07:47 Sputum, Expectorated/Coughed Respiratory Culture - Final Presumptive C albicans 12/13/17 18:34 Urine, Clean Catch Urine Culture - Final Mixed Gram Pos & Gram Neg Org Laboratory Results 12/14/17 11:30: LAUREN Screen Negative, FAITH-1 Antibody Not Reportable, SS-A/Ro IgG Antibody Not Reportable, SS-B/La IgG Antibody Not Reportable, Sm (Canchola) Antibody Not Reportable, RETENTION REPRESENTATIVE Antibody Not Reportable, Scl-70 Scleroderma Ab Not Reportable, Double Strand DNA Ab Not Reportable, Centromere B Antibody Not Reportable 12/18/17 06:50: Sodium 140, Potassium 3.1 L, Chloride 102, Carbon Dioxide 29.0, Anion Gap 9, BUN 6 L, Creatinine 0.48 L, Estim Creat Clear Calc 37.85, Est GFR (MDRD) Af Amer 160, Est GFR (MDRD) Non-Af 132, BUN/Creatinine Ratio 12.4, Glucose 102, Calcium 8.4 L Current Medications Acetaminophen (Tylenol) 650 mg PO Q6H PRN PRN PRN Reason: Fever >101 Last Admin: 12/15/17 01:07 Dose: 650 mg Acetylcysteine (Mucomyst) 400 mg INHALATION Q6H.RT [facility] Last Admin: 12/18/17 07:40 Dose: Not Given Albuterol/Ipratropium (Duoneb) 3 ml INHALATION Q6H.RT [facility] Last Admin: 12/18/17 07:19 Dose: 3 ml Enoxaparin Sodium (Lovenox) 40 mg SC DAILY@1000 [facility] Last Admin: 12/18/17 09:54 Dose: 40 mg Famotidine (Pepcid) 40 mg PO DAILY [facility] Last Admin: 12/18/17 09:54 Dose: 40 mg Guaifenesin (Mucinex) 1,200 mg PO BID [facility] Last Admin: 12/18/17 09:54 Dose: 1,200 mg Sodium Chloride () 1,000 mls @ 0 mls/hr IV .Q0M [facility] Last Admin: 12/13/17 14:21 Dose: 15 mls/hr Ceftriaxone Sodium 2 gm/ (Sodium Chloride) 50 mls @ 100 mls/hr IV DAILY [facility] Last Admin: 12/18/17 09:53 Dose: 100 mls/hr Magnesium Hydroxide (Milk Of Magnesia) 30 ml PO DAILY PRN PRN PRN Reason: Constipation Sodium Chloride () 5 - 30 ml IV UD PRN PRN Reason: SALINE FLUSH Last Admin: 12/18/17 10:00 Dose: 10 ml Medical Necessity - Tobacco Use Smoking Status: Never smoker Tobacco Use: Non-smoker Assessment/Plan All Active Problems Pneumonia (Acute) 1. Presumed pneumococcal pneumonia * continue Levaquin * follow up CT in 4-6 weeks * follow up with pulmonology in 1-2 months 2. Ataxia: * work up unremarkable * follow up with Neurology in 1-2 months * outpt EMG/NCT * follow up labs that were drawn during this admission 3. Debility * to TCU today. Code Visit Inpatient E&M: 92306 Disch Hosp - change billing of note from 12/17 to .
--- NOTE | 2017-12-18 12:04 | PCM.TXEXTCAR ---
- Diet 12/13/17 18:50 Diet: Regular Diet Food consistency:: Regular Liquid Consistency:: Regular/Thin - Routine Orders/Code Status Routine Lab Work: CBC, BMP Code Status: Full Code - Therapies Weight Bearing: Full weight bearing Physical Therapy: Eval and Treat Occupational Therapy: Eval and Treat - Allergies/Procedures Done in Hospital Allergies/Adverse Reactions: Allergies No Known Allergies Allergy (Verified 12/13/17 12:11) Procedures: None - Type of Care/Length of Stay Estimated LOS: Convalescent Care Less Than 30 days Type of Care Needed: Skilled Rehab Potential: Fair Prognosis: Fair - Additional Orders/Day of Discharge Day of Discharge: 12/18/17 - Follow Up Care Primary Care Physician: Chauncey Lu DO [Primary Care Provider] - Within 2 Weeks Please Follow Up With: Raymond Cruz DO When: 1-2 months Please Follow Up With: Radha Wong MD When: 4-6 weeks. Please Follow Up With: Chauncey Lu DO
--- NOTE | 2017-12-18 14:10 | PCM.PROGNOTE ---
Patient Problems: Active and Suspected Problems Pneumonia (Acute) Subjective: Patient did okay overnight. No acute issues were reported. Patient is on supplemental oxygen, but had a walking oximetry yesterday showing desaturation to 89% with ambulation. Patient feels subjectively improved compared to previous. - Physical Exam General: Alert, Cooperative, No apparent distress, - - Appears stated age. No conversational dyspnea noted. HEENT: Atraumatic, PERRLA, EOMI, - - No scleral icterus or injection noted. Oral: Moist Mucosa, No Gingival or Mucosal Lesions/ Ulcerations Neck: Supple, No JVD, No Nodes, Trachea Midline Lungs: No rhonchi, No wheeze, No rales, Diminished, - - Fair effort. No dullness to percussion. Cardiovascular: Normal S1, Normal S2, No murmurs, No rub noted, No Gallop, Tachycardic Abdomen: Bowel Sounds Present, Soft, Non Tender, Non-Distended Extremities: No clubbing, No cyanosis, No edema, Capillary Refill Less than 3 Seconds Skin: No rashes, No breakdown Musculoskeletal: No Tenderness to Palpation of Joints or Extremities Lymphatic: No Cervical, Supraclavicular, or Inguinal Adenopathy Neurological: Cranial nerves II-XII grossly intact, Neuro grossly intact, Motor Exam 5/5 strength throughout Psych/Mental Status: Appropriate, Flat Affect Vital Signs Temp Pulse Resp BP Pulse Ox 37.3 C H 98 16 139/62 H 95 12/18/17 09:26 12/18/17 11:51 12/18/17 09:26 12/18/17 09:26 12/18/17 09:26 Oxygen Flow Rate (L/min) [ 2 AMBULATION with Oxygen] Oxygen Flow Rate (L/min) [ 0 AMBULATING on Room Air] Oxygen Flow Rate (L/min) [At 0 REST on Room Air] Oxygen Flow Rate (L/min) 2 Oxygen Delivery Method Nasal Cannula Weight: 67.9 kg Body Mass Index (BMI) 26.5 Intake and Output for Last 24 Hours 12/16/17 12/17/17 12/18/17 23:59 23:59 23:59 Intake Total 2313 / 2313 856 / 856 338 / 338 Output Total 800 / 800 300 / 300 100 / 100 Balance 1513 / 1513 556 / 556 238 / 238 Microbiology Past 72 Hours 12/15/17 07:47 Gram Stain - Final Sputum, Expectorated/Coughed Respiratory Culture - Final Presumptive C albicans Laboratory Tests Past 24 Hrs 12/14/17 12/18/17 11:30 06:50 Sodium 140 Potassium 3.1 L Chloride 102 Carbon Dioxide 29.0 Anion Gap 9 BUN 6 L Creatinine 0.48 L Estim Creat Clear Calc 37.85 Est GFR (MDRD) Af Amer 160 Est GFR (MDRD) Non-Af 132 BUN/Creatinine Ratio 12.4 Glucose 102 Calcium 8.4 L LAUREN Screen Negative FAITH-1 Antibody Not Reportable SS-A/Ro IgG Antibody Not Reportable SS-B/La IgG Antibody Not Reportable Sm (Canchola) Antibody Not Reportable CASE PLANNER Antibody Not Reportable Scl-70 Scleroderma Ab Not Reportable Double Strand DNA Ab Not Reportable Centromere B Antibody Not Reportable Medical Necessity - Tobacco Use Smoking Status: Never smoker Tobacco Use: Non-smoker Assessment/Plan All Active Problems Pneumonia (Acute) RECOMMENDATIONS: 1. Okay to discharge from a pulmonary perspective 2. Continue chest physiotherapy/PEP 3. Wean supplemental oxygen to maintain saturations at or above 90%. 4. No inpatient bronchoscopy. Potential outpatient bronchoscopy 5. Patient should follow-up in pulmonary office in 4-6 weeks with nurse practitioner IMPRESSIONS: 1. Acute hypoxic respiratory insufficiency Likely secondary to underlying pulmonary infectious process. Sputum culture did not show staph aureus. Continue on other antibiotics. Aggressive chest physiotherapy. Will obtain a walking oximetry for evaluation of oxygen status. Outpatient complete pulmonary function test would be appropriate. 2. Left perihilar community-acquired pneumonia/nonspecific mediastinal lymphadenopathy The radiographic findings noted on CT chest could certainly be environmental marketing representative of an underlying pulmonary infectious process, for which the patient is currently on treatment. Would recommend repeating a CT chest in approximately 4-6 weeks to document resolution. If the patient continues to have the aforementioned radiographic abnormalities, would then consider bronchoscopy at that time. 3. Ataxia Of unclear etiology. MRI brain revealed no pathology. Neurology is following. Code Visit Inpatient E&M: 36228 Subs Hosp L2
--- NOTE | 2017-12-18 16:36 | CASEMGMT ---
JASON met with patient and his son. Answered their questions regarding TCU. They were in agreement with this plan. JASON told patient's we will have someone call him when patient is headed over to TCU. He thanked JASON for the help. ADA Cardona called patient's to let him know patient was going over to TCU right now. Plan: [facility] TCU under skilled level of care. Esperanza DUQUE MSW
[2017-12-19 22:09] LABS: PROELU- Albumin, Urine 60.1 % (.); PROELU- Alpha-1-Globulin,Ur 4.7 % (.); PROELU- Alpha-2-Globulin,Ur 11.5 % (.); PROELU- Beta Globulin, Ur 13.2 % (.); PROELU- Gamma Globulin, Ur 10.5 % (.)
[2017-12-20 11:05] LABS: Cytoplasmic Ab (C-ANCA) <1:20 titer (Neg:<1:20)
[2017-12-20 11:06] LABS: Perinuclear Ab (P-ANCA) <1:20 titer (Neg:<1:20)
== END 2017-12-18 16:04 | disposition skilled nursing facility (03) | DRG 194 ==
LOC: ED 17:16 → PCU 18:02
PROVIDERS: Internal Medicine; Internal Medicine Critical Care Medicine; Psychiatry & Neurology Neurology; Student in an Organized Health Care Education/Training Program; Admitting Provider Internal Medicine; Emergency Provider Emergency Medicine; Family Provider Student in an Organized Health Care Education/Training Program; PCP Student in an Organized Health Care Education/Training Program
DX: J18.9 Pneumonia, unspecified organism (principal); N30.00 Acute cystitis without hematuria; R06.89 Other abnormalities of breathing; R09.02 Hypoxemia; R26.0 Ataxic gait; Z23 Encounter for immunization
CPT/HCPCS: 36415; 70496; 70498; 70553; 71045; 71275; 72141; 80048; 80076; 81001; 82140; 82306; 82607; 83036; 83605; 83735; 83880; 84166; 84443; 84484; 85025; 85027; 85379; 85652; 86038; 86140; 86225; 86226; 86235; 86256; 86335; 86431; 87070; 87086; 87088; 87205; 87449; 87641; 93005; 94640; 94667; 94668; 97110; 97116; 97162; 97165; 97530; 97535; 97802; 99285; A9585; J7030; J7040; Q9967; 90686; A4216; J0696

== ENCOUNTER 2017-12-18 16:15 | Inpatient (IN) | payer MEDICARE, OTHER, SELFPAY ==
[2017-12-18 16:23] VITALS: BP 163/70; PULSE 91; RESP 17; TEMP 35.6; O2SAT 96
--- NOTE | 2017-12-18 16:23 | NURSING ---
pt arrived via WC from PCU, oriented to room & call light. Personal alarm applied d/t confusion at times.
[2017-12-18 16:42] VITALS: BMI 26.2
[2017-12-18 16:43] VITALS: BMI 26.3
[2017-12-18 19:15] VITALS: O2SAT 96
[2017-12-18] MEDS: guaiFENesin 1,200 MG Tablet 1200 MG PO (20:04)
[2017-12-18] MEDS: Senna/Docusate Sodium 1 Tablet PO (20:04)
[2017-12-18] MEDS: NYSTATIN 500,000 UNIT/5 ML UDC 500000 UNIT PO (20:05)
--- NOTE | 2017-12-18 20:15 | PCM.HP.STD ---
Problem List (1) Ataxia Status: Acute (2) Shortness of breath Status: Acute (3) Community acquired pneumonia Status: Acute (4) Mediastinal lymphadenopathy Status: Acute (5) GERD (gastroesophageal reflux disease) Status: Chronic (6) Encephalopathy Status: Acute History of Present Illness Date of Admission: 12/18/17 Chief Complaint: Here for rehabilitation, strengthening, prior to discharge home with spouse. The patient is a 77 year old Female with below past medical history presented to [facility] Emergency Department 12/13/2017 with ataxia, shortness of breath. 12/13/2017 EKG showed sinus tachycardia, left axis deviation, LVH with QRS widening, repolarization abnormality, inferior infarct, age undetermined. 12/13/2017 CTA brain negative. 12/13/2017 CTA neck negative. Ataxia x 2 days, fever 100.4. Pulsox 90% on RA. CBCD okay, BMP okay. Chest X-ray showed cardiomegaly, elevated right hemidiaphragm, bibasilar infiltrates, right worse than left. Blood, urine cultures sent. Rocephin IV, Zithromax IV given. 12/13/2017 CTA chest negative pulmonary embolism, left perihilar consolidation. Mediastinal left hilar lymphadenopathy, follow up recommended to rule out neoplasm. 12/13/2017 Admit to Hospital. IV Antibiotics for community acquired pneumonia. Consult pulmonary to evaluate possible endobronchial lesion. MRI, consult neurology for cerebellar ataxia. 12/13/2017 MRI brain normal. 12/14/2017 Dr. Cruz recommended continued treatment of infection. Add chest physiotherapy. Recommend treating pneumonia, then bronchoscopy when stable. 12/14/2017 Dr. Wong recommended thorough evaluation for ataxia including vasculitis workup. 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 12/16/2017 Chest X-ray showed left upper lobe left lingular pneumonia. 12/18/2017 Admit to [facility] with debility, here for rehabilitation, strengthening, prior to discharge home with spouse. Resident suffering encephalopathy during my interview. 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 Alcohol: None Drugs: None - *Family History Maternal History Items: No pertinent history Paternal History Items: No pertinent history Review of Systems Constitutional: Denies: Chills, Fever, Weight Change HEENT: Denies: Head Aches, Sinus Congestion, Sinus Drainage Cardiovascular: Denies: Chest Pain, Palpitations Respiratory: Reports: Shortness of Breath, Shortness of breath upon exertion. Denies: Cough, Shortness of breath at rest, Sputum production Gastrointestinal: Denies: Abdominal Pain, Nausea, Vomiting Genitourinary: Denies: Dysuria Musculoskeletal: Denies: Joint Pain, Joint Tenderness Skin: Denies: Rash, Wounds Neurological: Denies: Numbness, Tingling, Focal weakness Psychiatric: Denies: Anxiety, Depression, Homicidal Ideations, Suicidal Ideations Hematologic/ Lymphatic: Denies: Easy Bruising, Easy Bleeding VTE Information - Inpt Only VTE Present on Admission: No VTE Mechan Device Prophylaxis: Knee High ARIANNE Hose VTE Pharm Prophylaxis ordered?: Yes Patient Problems: Active and Suspected Problems Ataxia (Acute) Shortness of breath (Acute) Community acquired pneumonia (Acute) Mediastinal lymphadenopathy (Acute) Encephalopathy (Acute) - Physical Exam General: Alert, Oriented x3, Cooperative HEENT: Atraumatic, PERRLA, EOMI, Normocephalic Neck: Supple, No JVD, Negative Carotid Bruits Lungs: Normal air movement, Rales - Bibasilar, left worse then right. Cardiovascular: Regular rate, No murmurs Abdomen: Bowel Sounds Present, Soft, Non Tender Extremities: No edema, Capillary Refill Less than 3 Seconds Skin: No rashes, No breakdown Musculoskeletal: No Tenderness to Palpation of Joints or Extremities Neurological: Cranial nerves II-XII grossly intact Psych/Mental Status: Normal Affect, Appropriate Vital Signs Temp Pulse Resp BP Pulse Ox 96.0 F L 91 17 163/70 H 96 10/16/18 16:23 12/18/17 16:23 12/18/17 16:23 12/18/17 16:23 12/18/17 19:15 Oxygen Delivery Method Room Air Weight: 67.273 kg Body Mass Index (BMI) 26.2 Intake and Output for Last 24 Hours 12/16/17 12/17/17 12/18/17 23:59 23:59 23:59 Intake Total 240 / 240 Balance 240 / 240 Assessment/Plan All Active Problems Pneumonia (Acute) Ataxia (Acute) Shortness of breath (Acute) Community acquired pneumonia (Acute) Mediastinal lymphadenopathy (Acute) Encephalopathy (Acute) 77 year old female with below past medical history hospitalized for community acquired pneumonia, ataxia, complicated by metabolic encephalopathy, admitted to TCU with debility, here for rehabilitation, strengthening, prior to discharge home with spouse. Debility - PT/OT. Pain - Tylenol 1000MG Q6H PRN mild pain. Bowel - Miralax 17GM daily, Senna/colace 1 tablet BID, Dulcolax 10MG PO daily PRN. Pneumonia vaccination - Administer Prevnar 13 and/or Pneumovax 23 as necessary. DVT prophylaxis - Lovenox 40MG SC daily. Shortness of breath - Albuterol 2 puffs Q4H PRN, moderate wheezing, add Duoneb 3ML [id number], Medrol Dosepak. GERD - Famotidine 20MG daily. Congestion - Mucinex 1200MG twice daily. Community Acquired Pneumonia - Levaquin 500MG daily thru 12/23/2017. Thrush - Nystatin 500,000 PO 4x/day thru 12/25/2017. Ataxia - Vasculitis workup pending, follow up with Neurology as outpatient. Mediastinal Lymphadenopathy - Follow up imaging, follow up with Pulmonary as outpatient.
--- NOTE | 2017-12-18 20:23 | HP.PCM_ITS ---
Problem List (1) Ataxia Status: Acute (2) Shortness of breath Status: Acute (3) Community acquired pneumonia Status: Acute (4) Mediastinal lymphadenopathy Status: Acute (5) GERD (gastroesophageal reflux disease) Status: Chronic (6) Encephalopathy Status: Acute History of Present Illness Date of Admission: 12/18/17 Chief Complaint: Here for rehabilitation, strengthening, prior to discharge home with spouse. The patient is a 77 year old Female with below past medical history presented to [facility] Emergency Department 12/13/2017 with ataxia, shortness of breath. 12/13/2017 EKG showed sinus tachycardia, left axis deviation, LVH with QRS widening, repolarization abnormality, inferior infarct, age undetermined. 12/13/2017 CTA brain negative. 12/13/2017 CTA neck negative. Ataxia x 2 days, fever 100.4. Pulsox 90% on RA. CBCD okay, BMP okay. Chest X-ray showed cardiomegaly, elevated right hemidiaphragm, bibasilar infiltrates, right worse than left. Blood, urine cultures sent. Rocephin IV, Zithromax IV given. 12/13/2017 CTA chest negative pulmonary embolism, left perihilar consolidation. Mediastinal left hilar lymphadenopathy, follow up recommended to rule out neoplasm. 12/13/2017 Admit to Hospital. IV Antibiotics for community acquired pneumonia. Consult pulmonary to evaluate possible endobronchial lesion. MRI, consult neurology for cerebellar ataxia. 12/13/2017 MRI brain normal. 12/14/2017 Dr. Cruz recommended continued treatment of infection. Add chest physiotherapy. Recommend treating pneumonia, then bronchoscopy when stable. 12/14/2017 Dr. Wong recommended thorough evaluation for ataxia including vasculitis workup. 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 12/16/2017 Chest X-ray showed left upper lobe left lingular pneumonia. 12/18/2017 Admit to [facility] with debility, here for rehabilitation, strengthening, prior to discharge home with spouse. Resident suffering encephalopathy during my interview. 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 Alcohol: None Drugs: None - *Family History Maternal History Items: No pertinent history Paternal History Items: No pertinent history Review of Systems Constitutional: Denies: Chills, Fever, Weight Change HEENT: Denies: Head Aches, Sinus Congestion, Sinus Drainage Cardiovascular: Denies: Chest Pain, Palpitations Respiratory: Reports: Shortness of Breath, Shortness of breath upon exertion. Denies: Cough, Shortness of breath at rest, Sputum production Gastrointestinal: Denies: Abdominal Pain, Nausea, Vomiting Genitourinary: Denies: Dysuria Musculoskeletal: Denies: Joint Pain, Joint Tenderness Skin: Denies: Rash, Wounds Neurological: Denies: Numbness, Tingling, Focal weakness Psychiatric: Denies: Anxiety, Depression, Homicidal Ideations, Suicidal Ideations Hematologic/ Lymphatic: Denies: Easy Bruising, Easy Bleeding VTE Information - Inpt Only VTE Present on Admission: No VTE Mechan Device Prophylaxis: Knee High ARIANNE Hose VTE Pharm Prophylaxis ordered?: Yes Patient Problems: Active and Suspected Problems Ataxia (Acute) Shortness of breath (Acute) Community acquired pneumonia (Acute) Mediastinal lymphadenopathy (Acute) Encephalopathy (Acute) - Physical Exam General: Alert, Oriented x3, Cooperative HEENT: Atraumatic, PERRLA, EOMI, Normocephalic Neck: Supple, No JVD, Negative Carotid Bruits Lungs: Normal air movement, Rales - Bibasilar, left worse then right. Cardiovascular: Regular rate, No murmurs Abdomen: Bowel Sounds Present, Soft, Non Tender Extremities: No edema, Capillary Refill Less than 3 Seconds Skin: No rashes, No breakdown Musculoskeletal: No Tenderness to Palpation of Joints or Extremities Neurological: Cranial nerves II-XII grossly intact Psych/Mental Status: Normal Affect, Appropriate Vital Signs Temp Pulse Resp BP Pulse Ox 96.0 F L 91 17 163/70 H 96 10/16/18 16:23 12/18/17 16:23 12/18/17 16:23 12/18/17 16:23 12/18/17 19:15 Oxygen Delivery Method Room Air Weight: 67.273 kg Body Mass Index (BMI) 26.2 Intake and Output for Last 24 Hours 12/16/17 12/17/17 12/18/17 23:59 23:59 23:59 Intake Total 240 / 240 Balance 240 / 240 Assessment/Plan All Active Problems Pneumonia (Acute) Ataxia (Acute) Shortness of breath (Acute) Community acquired pneumonia (Acute) Mediastinal lymphadenopathy (Acute) Encephalopathy (Acute) 77 year old female with below past medical history hospitalized for community acquired pneumonia, ataxia, complicated by metabolic encephalopathy, admitted to TCU with debility, here for rehabilitation, strengthening, prior to discharge home with spouse. * Debility - PT/OT. * Pain - Tylenol 1000MG Q6H PRN mild pain. * Bowel - Miralax 17GM daily, Senna/colace 1 tablet BID, Dulcolax 10MG PO daily PRN. * Pneumonia vaccination - Administer Prevnar 13 and/or Pneumovax 23 as necessary. * DVT prophylaxis - Lovenox 40MG SC daily. * Shortness of breath - Albuterol 2 puffs Q4H PRN, moderate wheezing, add Duoneb 3ML [id number], Medrol Dosepak. * GERD - Famotidine 20MG daily. * Congestion - Mucinex 1200MG twice daily. * Community Acquired Pneumonia - Levaquin 500MG daily thru 12/23/2017. * Thrush - Nystatin 500,000 PO 4x/day thru 12/25/2017. * Ataxia - Vasculitis workup pending, follow up with Neurology as outpatient. * Mediastinal Lymphadenopathy - Follow up imaging, follow up with Pulmonary as outpatient.
[2017-12-19] MEDS: Menthol/Lanolin/Calamine/Znox 113 GM Tube 1 APPLIC TOPICAL ×2 (04:59→21:43)
[2017-12-19] MEDS: Enoxaparin 40 MG/0.4 ML Syringe SC (04:59)
[2017-12-19] MEDS: guaiFENesin 1,200 MG Tablet 1200 MG PO ×2 (04:59→16:59)
[2017-12-19] MEDS: NYSTATIN 500,000 UNIT/5 ML UDC 500000 UNIT PO ×4 (04:59→21:43)
[2017-12-19] MEDS: Senna/Docusate Sodium 1 Tablet PO ×2 (04:59→17:00)
[2017-12-19] MEDS: Famotidine 20 MG Tablet PO (04:59)
[2017-12-19] MEDS: Polyethylene Glycol 3350 17 GM PACKET PO (05:00)
[2017-12-19] MEDS: levoFLOXacin 500 MG Tablet PO (05:00)
[2017-12-19 06:22] LABS: Absolute Lymphocyte Count 1.66 X10^3/ul (0.83-4.51); Basophil# 0.07 X10^3/uL; Basophil% 0.9 % (0-1); Eosinophil# 0.28 X10^3/uL; Eosinophils% 3.6 % (0-5); Hematocrit 39.5 % (37-47); Hemoglobin 12.9 g/dl (12.0-15.0); Lymphocyte # 1.66 X10^3/ul (4.0); Lymphocyte % 21.3 % (19-41); Mean Corp Hgb Conc 32.7 g/gl (32-36); Mean Corpuscular Hgb 29.3 pg (27.0-32.0); Mean Corpuscular Volume 89.6 fL (81-99); Monocyte# 0.74 X10^3/uL; Monocyte% 9.5 % (0-10); Neutrophil # 5.01 X10^3/uL (2.7-7.7); Neutrophil % 64.2 % (47-70); Platelet Count 253 K/mm3 (150-450); RBC Distribution Width CV 14.2 % (11.6-14.6); RBC Distribution Width SD 45.9 fl (35.1-43.9); Red Blood Count 4.41 M/mm3 (4.2-5.4); White Blood Count 7.8 K/mm3 (4.4-11.0)
[2017-12-19 06:31] LABS: Differential Indicated SCAN CRITERIA MET; POSITIVE COUNT NO; POSITIVE DIFFERENTIAL NO; POSITIVE MORPHOLOGY YES
[2017-12-19 06:39] LABS: Differential Comment SCANNED
[2017-12-19 06:51] LABS: Anion Gap 8 (5-15); BUN 10 mg/dL (7-18); BUN/Creat Ratio 19.1 RATIO (10-20); Calcium,Total 8.6 mg/dL (8.5-10.1); Chloride 103 mmol/L (98-107); Creatinine, Serum 0.52 mg/dL (0.55-1.02); EST Glomerular Filtration Rate 121 mL/min (>60); Est Glom Filt Rate - Afr Amer 146 mL/min (>60); Estimated Creatinine Clearance 39.59 ml/min; Glucose 115 mg/dL (74-106); Potassium 3.5 mmol/L (3.5-5.1); Sodium Level 139 mmol/L (136-145)
[2017-12-19 07:06] VITALS: PULSE 102; RESP 20; O2SAT 93
[2017-12-19] MEDS: Ipratropium/Albuterol Sulfate 3 ML AMPUL.NEB INHALATION (07:06)
[2017-12-19] MEDS: MethylPREDNISolone DosePak 4 MG BOX PO ×4 (07:51→21:42)
[2017-12-19] MEDS: Tuberculin,Purif.prot.deriv. 50 TU/ML Vial 5 ML ID (12:16)
--- NOTE | 2017-12-19 13:07 | PCM.PN.RX ---
<Fabio Whitakerip D - Last Filed: 12/19/17 13:07> Progress Note - Pharmacy Subjective: TCU Admission Objective: Allergies No Known Allergies Allergy (Verified 12/13/17 12:11) Current Medications Generic Name Dose Route Start Last Admin Trade Name Freq PRN Reason Stop Dose Admin Acetaminophen 1,000 mg 12/18/17 20:34 Tylenol PO Q8H PRN PRN MILD PAIN (1-3/10) Albuterol Sulfate 2 puff 12/18/17 16:28 Ventolin Hfa (Sp) INHALATION Q4H PRN PRN SHORTNESS OF BREATH Bisacodyl 10 mg 12/18/17 20:34 Dulcolax PO DAILY PRN Constipation Calamine/Phenol 1 applic 12/19/17 06:00 12/19/17 04:59 Calmoseptine Ointment TOPICAL 1 applicatio 0600,2200 KEENA Administration Protocol Enoxaparin Sodium 40 mg 12/19/17 06:00 12/19/17 04:59 Lovenox SC 40 mg DAILY@0600 KEENA Administration Famotidine 20 mg 12/19/17 06:00 12/19/17 04:59 Pepcid PO 20 mg DAILY KEENA Administration Guaifenesin 1,200 mg 12/18/17 18:00 12/19/17 04:59 Mucinex PO 1,200 mg BID KEENA Administration Levofloxacin 500 mg 12/19/17 06:00 12/19/17 05:00 Levaquin Tablet PO 12/23/17 06:01 500 mg DAILY KEENA Administration Methylprednisolone 4 mg 12/19/17 08:00 12/19/17 12:29 Medrol Dosepak PO 12/24/17 08:59 4 mg 1200,1700 KEENA Administration Taper Nystatin 500,000 unit 12/18/17 22:00 12/19/17 12:29 Nystatin PO 12/25/17 22:01 500,000 unit 4X/DAY KEENA Administration Polyethylene Glycol 17 gm 12/19/17 06:00 12/19/17 05:00 Miralax PO 17 gm DAILY KEENA Administration Senna/Docusate Sodium 1 tablet 12/18/17 18:00 12/19/17 04:59 Senokot-S, Jo-Colace PO 1 tablet BID KEENA Administration Tuberculin PPD 5 tu 12/26/17 10:00 Tubersol, Aplisol, Ppd ID 12/26/17 10:01 X1 ONE Problem List Ataxia (Acute) Shortness of breath (Acute) Community acquired pneumonia (Acute) Mediastinal lymphadenopathy (Acute) GERD (gastroesophageal reflux disease) (Chronic) Encephalopathy (Acute) Vital Signs Temp Pulse Resp BP Pulse Ox 96.0 F L 102 H 20 H 163/70 H 93 12/18/17 16:23 12/19/17 07:06 12/19/17 07:06 12/18/17 16:23 12/19/17 07:06 Oxygen Flow Rate (L/min) 2 Oxygen Delivery Method Nasal Cannula Weight: 67.273 kg Body Mass Index (BMI) 26.2 Sodium 139 mmol/L (136-145) 12/19/17 05:22 Potassium 3.5 mmol/L (3.5-5.1) 12/19/17 05:22 Chloride 103 mmol/L (98-107) 12/19/17 05:22 Carbon Dioxide 28.0 mmol/L (21.0-32.0) 12/19/17 05:22 Anion Gap 8 (5-15) 12/19/17 05:22 BUN 10 mg/dL (7-18) 12/19/17 05:22 Creatinine 0.52 mg/dL (0.55-1.02) L 12/19/17 05:22 Est GFR (MDRD) Af Amer 146 mL/min (>60) 12/19/17 05:22 Est GFR (MDRD) Non-Af 121 mL/min (>60) 12/19/17 05:22 BUN/Creatinine Ratio 19.1 RATIO (10-20) 12/19/17 05:22 Glucose 115 mg/dL (74-106) H 12/19/17 05:22 Assessment/Plan: 1) Pain APAP for mild pain. Continue to monitor prn medication use, daily pain scores. 2) Pulm Guaifenesin, methylprednisolone dose pack, albuterol prn. Continue to monitor for shortness of breath. 3) ID Levofloxacin daily until 12/23, oral nystatin until 12/25. Continue to monitor s/s infection. 4) GI Famotidine daily. Continue to monitor s/s GI distress. 5) DVT PPx Enoxaparin daily. Continue to monitor s/s bleeding/clot. Psychotropic Medications: None Unnecessary Medications: None Bowel Regimen: 6) Senna/s, PEG, prn bisacodyl. Continue to monitor prn medication use, for constipation/diarrhea. Date of Note:: 12/19/17 - Provider Comments Provider responsibility: Provider responsible to enter orders to implement recommendations <Shimon Black Chi - Last Filed: 12/19/17 17:53> Progress Note - Pharmacy Subjective: [] Objective: Allergies No Known Allergies Allergy (Verified 12/13/17 12:11) Current Medications Generic Name Dose Route Start Last Admin Trade Name Freq PRN Reason Stop Dose Admin Acetaminophen 1,000 mg 12/18/17 20:34 Tylenol PO Q8H PRN PRN MILD PAIN (1-05/12) Albuterol Sulfate 2 puff 12/18/17 16:28 Ventolin Hfa (Sp) INHALATION Q4H PRN PRN SHORTNESS OF BREATH Bisacodyl 10 mg 12/18/17 20:34 Dulcolax PO DAILY PRN Constipation Calamine/Phenol 1 applic 12/19/17 06:00 12/19/17 04:59 Calmoseptine Ointment TOPICAL 1 applicatio 0600,2200 KEENA Administration Protocol Enoxaparin Sodium 40 mg 12/19/17 06:00 12/19/17 04:59 Lovenox SC 40 mg DAILY@0600 KEENA Administration Famotidine 20 mg 12/19/17 06:00 12/19/17 04:59 Pepcid PO 20 mg DAILY KEENA Administration Guaifenesin 1,200 mg 12/18/17 18:00 12/19/17 16:59 Mucinex PO 1,200 mg BID KEENA Administration Levofloxacin 500 mg 12/19/17 06:00 12/19/17 05:00 Levaquin Tablet PO 12/23/17 06:01 500 mg DAILY KEENA Administration Methylprednisolone 4 mg 12/19/17 08:00 12/19/17 16:59 Medrol Dosepak PO 12/24/17 08:59 4 mg 1200,1700 KEENA Administration Taper Nystatin 500,000 unit 12/18/17 22:00 12/19/17 16:59 Nystatin PO 12/25/17 22:01 500,000 unit 4X/DAY KEENA Administration Polyethylene Glycol 17 gm 12/19/17 06:00 12/19/17 05:00 Miralax PO 17 gm DAILY KEENA Administration Senna/Docusate Sodium 1 tablet 12/18/17 18:00 12/19/17 17:00 Senokot-S, Jo-Colace PO 1 tablet BID KEENA Administration Tuberculin PPD 5 tu 12/26/17 10:00 Tubersol, Aplisol, Ppd ID 12/26/17 10:01 X1 ONE Problem List Ataxia (Acute) Shortness of breath (Acute) Community acquired pneumonia (Acute) Mediastinal lymphadenopathy (Acute) GERD (gastroesophageal reflux disease) (Chronic) Encephalopathy (Acute) Vital Signs Temp Pulse Resp BP Pulse Ox 97.3 F L 97 18 139/67 H 92 12/19/17 15:18 12/19/17 15:18 12/19/17 15:18 12/19/17 15:18 12/19/17 15:18 Oxygen Flow Rate (L/min) 2 Oxygen Delivery Method Nasal Cannula Weight: 67.273 kg Body Mass Index (BMI) 26.2 Sodium 139 mmol/L (136-145) 12/19/17 05:22 Potassium 3.5 mmol/L (3.5-5.1) 12/19/17 05:22 Chloride 103 mmol/L (98-107) 12/19/17 05:22 Carbon Dioxide 28.0 mmol/L (21.0-32.0) 12/19/17 05:22 Anion Gap 8 (5-15) 12/19/17 05:22 BUN 10 mg/dL (7-18) 12/19/17 05:22 Creatinine 0.52 mg/dL (0.55-1.02) L 12/19/17 05:22 Est GFR (MDRD) Af Amer 146 mL/min (>60) 12/19/17 05:22 Est GFR (MDRD) Non-Af 121 mL/min (>60) 12/19/17 05:22 BUN/Creatinine Ratio 19.1 RATIO (10-20) 12/19/17 05:22 Glucose 115 mg/dL (74-106) H 12/19/17 05:22 Assessment/Plan: Psychotropic Medications: Unnecessary Medications: Bowel Regimen: - Provider Comments Provider responsibility: Provider responsible to enter orders to implement recommendations Provider Comments to Recommendations by Pharmacy: Agree
[2017-12-19 15:18] VITALS: BP 139/67; PULSE 97; RESP 18; TEMP 36.3; O2SAT 92
[2017-12-20] MEDS: Menthol/Lanolin/Calamine/Znox 113 GM Tube 1 APPLIC TOPICAL ×2 (06:39→21:29)
[2017-12-20] MEDS: Polyethylene Glycol 3350 17 GM PACKET PO (06:39)
[2017-12-20] MEDS: NYSTATIN 500,000 UNIT/5 ML UDC 500000 UNIT PO ×4 (06:40→21:29)
[2017-12-20] MEDS: Famotidine 20 MG Tablet PO (06:40)
[2017-12-20] MEDS: Senna/Docusate Sodium 1 Tablet PO (06:40)
[2017-12-20] MEDS: guaiFENesin 1,200 MG Tablet 1200 MG PO ×2 (06:40→17:04)
[2017-12-20] MEDS: levoFLOXacin 500 MG Tablet PO (06:40)
[2017-12-20] MEDS: Enoxaparin 40 MG/0.4 ML Syringe SC (06:41)
[2017-12-20 07:07] VITALS: O2SAT 94
[2017-12-20] MEDS: MethylPREDNISolone DosePak 4 MG BOX PO ×4 (10:09→21:29)
[2017-12-20 15:10] VITALS: BP 155/67; PULSE 84; RESP 20; TEMP 36.7; O2SAT 94
[2017-12-20 21:28] VITALS: PULSE 86; O2SAT 97
[2017-12-21] MEDS: levoFLOXacin 500 MG Tablet PO (05:20)
[2017-12-21] MEDS: Menthol/Lanolin/Calamine/Znox 113 GM Tube 1 APPLIC TOPICAL ×2 (05:20→20:51)
[2017-12-21] MEDS: Enoxaparin 40 MG/0.4 ML Syringe SC (05:20)
[2017-12-21] MEDS: Famotidine 20 MG Tablet PO (05:21)
[2017-12-21] MEDS: NYSTATIN 500,000 UNIT/5 ML UDC 500000 UNIT PO ×4 (05:21→20:50)
[2017-12-21] MEDS: guaiFENesin 1,200 MG Tablet 1200 MG PO ×2 (05:21→16:42)
[2017-12-21 06:35] VITALS: O2SAT 96
[2017-12-21] MEDS: MethylPREDNISolone DosePak 4 MG BOX PO ×4 (07:59→20:51)
[2017-12-21 11:33] VITALS: O2SAT 95
[2017-12-21 13:02] VITALS: O2SAT 96
--- NOTE | 2017-12-21 13:33 | CHAPLAIN ---
Type of Pastoral Visit ___ Initial Visit _x__ Follow-up Visit ___ On-call Visit ___ General Patient Visit ___ Spiritual Assessment ___ Family Conference ___ Bereavement ___ Rapid Response ___ Code Blue ___ Other (describe below) Pastoral Care Referral From _x__ Patient ___ Family ___ Nurse ___ Physician ___ Nitrator Operator ___ Foundry Manager ___ Other (describe below) Sacrament/Intervention _x__ Active listening ___ Anointing ___ Mosque ___ Bereavement ___ Communion ___ Wendie exploration ___ ___ Life review ___ Prayer ___ Reconciliation ___ Sacrament of Sick ___ Supportive presence ___ Wedding ___ Other (describe below) Pastoral Comments
[2017-12-21 13:50] VITALS: O2SAT 96
[2017-12-21 15:55] VITALS: BP 173/78; PULSE 104; RESP 20; TEMP 36.4; O2SAT 90
[2017-12-21 16:41] VITALS: O2SAT 93
--- NOTE | 2017-12-21 23:51 | NURSING ---
Personal alarm removed. Pt has made not attempts to get of bed. Pt verbalized understanding to call for assistance with transfers.
[2017-12-22] MEDS: guaiFENesin 1,200 MG Tablet 1200 MG PO ×2 (05:16→17:06)
[2017-12-22] MEDS: NYSTATIN 500,000 UNIT/5 ML UDC 500000 UNIT PO ×4 (05:16→21:09)
[2017-12-22] MEDS: Enoxaparin 40 MG/0.4 ML Syringe SC (05:16)
[2017-12-22] MEDS: Senna/Docusate Sodium 1 Tablet PO (05:16)
[2017-12-22] MEDS: levoFLOXacin 500 MG Tablet PO (05:16)
[2017-12-22] MEDS: Famotidine 20 MG Tablet PO (05:16)
[2017-12-22] MEDS: Menthol/Lanolin/Calamine/Znox 113 GM Tube 1 APPLIC TOPICAL ×2 (05:21→21:11)
[2017-12-22] MEDS: MethylPREDNISolone DosePak 4 MG BOX PO ×3 (08:58→21:09)
[2017-12-22 09:34] VITALS: O2SAT 92
[2017-12-22 15:06] VITALS: BP 150/73; PULSE 81; RESP 18; TEMP 36.4; O2SAT 91
[2017-12-23] MEDS: Famotidine 20 MG Tablet PO (06:03)
[2017-12-23] MEDS: Enoxaparin 40 MG/0.4 ML Syringe SC (06:03)
[2017-12-23] MEDS: levoFLOXacin 500 MG Tablet PO (06:03)
[2017-12-23] MEDS: NYSTATIN 500,000 UNIT/5 ML UDC 500000 UNIT PO ×4 (06:03→21:21)
[2017-12-23] MEDS: guaiFENesin 1,200 MG Tablet 1200 MG PO ×2 (06:03→16:07)
[2017-12-23] MEDS: Menthol/Lanolin/Calamine/Znox 113 GM Tube 1 APPLIC TOPICAL ×2 (06:05→21:26)
[2017-12-23 08:15] VITALS: O2SAT 94
[2017-12-23] MEDS: MethylPREDNISolone DosePak 4 MG BOX PO ×2 (08:43→21:21)
[2017-12-23 13:22] VITALS: PULSE 94; O2SAT 95
[2017-12-23 15:18] VITALS: BP 148/64; PULSE 95; RESP 18; TEMP 36; O2SAT 93
--- NOTE | 2017-12-23 21:15 | NURSING ---
Pt arrived back to floor with .
[2017-12-24] MEDS: NYSTATIN 500,000 UNIT/5 ML UDC 500000 UNIT PO ×4 (05:44→20:09)
[2017-12-24] MEDS: Enoxaparin 40 MG/0.4 ML Syringe SC (05:44)
[2017-12-24] MEDS: guaiFENesin 1,200 MG Tablet 1200 MG PO ×2 (05:44→16:59)
[2017-12-24] MEDS: Famotidine 20 MG Tablet PO (05:44)
[2017-12-24] MEDS: Menthol/Lanolin/Calamine/Znox 113 GM Tube 1 APPLIC TOPICAL ×2 (05:46→20:09)
[2017-12-24 06:32] VITALS: O2SAT 96
[2017-12-24] MEDS: MethylPREDNISolone DosePak 4 MG BOX PO (07:49)
[2017-12-24 15:08] VITALS: BP 147/75; PULSE 110; RESP 16; TEMP 35.9; O2SAT 93
[2017-12-25] MEDS: Famotidine 20 MG Tablet PO (05:13)
[2017-12-25] MEDS: guaiFENesin 1,200 MG Tablet 1200 MG PO ×2 (05:13→16:15)
[2017-12-25] MEDS: NYSTATIN 500,000 UNIT/5 ML UDC 500000 UNIT PO ×4 (05:13→19:50)
[2017-12-25] MEDS: Menthol/Lanolin/Calamine/Znox 113 GM Tube 1 APPLIC TOPICAL ×2 (05:14→19:50)
[2017-12-25] MEDS: Enoxaparin 40 MG/0.4 ML Syringe SC (05:15)
[2017-12-25 08:06] VITALS: O2SAT 93
[2017-12-25 09:59] VITALS: O2SAT 93
--- NOTE | 2017-12-25 15:39 | CASEMGMT ---
Brief interview for mental status (BIMS) and resident mood interview (PHQ-9) completed on this day. BIMS score 13/15. PHQ-9 score
[2017-12-25 15:52] VITALS: BP 128/69; PULSE 110; RESP 16; TEMP 35.7; O2SAT 91
[2017-12-26] MEDS: Enoxaparin 40 MG/0.4 ML Syringe SC (05:02)
[2017-12-26] MEDS: Famotidine 20 MG Tablet PO (05:02)
[2017-12-26] MEDS: Menthol/Lanolin/Calamine/Znox 113 GM Tube 1 APPLIC TOPICAL ×2 (05:02→19:48)
[2017-12-26] MEDS: guaiFENesin 1,200 MG Tablet 1200 MG PO ×2 (05:02→19:46)
[2017-12-26 05:44] LABS: Absolute Lymphocyte Count 2.82 X10^3/ul (0.83-4.51); Absolute Neutrophil Count 5.4 X10^3/uL (2.0-7.7); Basophil# 0.14 X10^3/uL; Basophil% 1.4 % (0-1); Eosinophil# 0.25 X10^3/uL; Eosinophils% 2.6 % (0-5); Hematocrit 46.3 % (37-47); Hemoglobin 14.8 g/dl (12.0-15.0); Lymphocyte # 2.82 X10^3/ul (4.0); Lymphocyte % 28.9 % (19-41); Mean Corpuscular Hgb 29.1 pg (27.0-32.0); Mean Corpuscular Volume 91.1 fL (81-99); Mean Platelet Vol. 9.1 fl (6.2-12.0); Monocyte# 0.97 X10^3/uL; Monocyte% 9.9 % (0-10); Neutrophil # 5.35 X10^3/uL (2.7-7.7); Neutrophil % 54.9 % (47-70); POSITIVE COUNT YES; POSITIVE DIFFERENTIAL NO; POSITIVE MORPHOLOGY YES; Platelet Count 434 K/mm3 (150-450); RBC Distribution Width CV 14.7 % (11.6-14.6); RBC Distribution Width SD 47.6 fl (35.1-43.9); Red Blood Count 5.08 M/mm3 (4.2-5.4); White Blood Count 9.8 K/mm3 (4.4-11.0)
[2017-12-26 06:06] LABS: Anion Gap 6 (5-15); BUN 18 mg/dL (7-18); BUN/Creat Ratio 23.3 RATIO (10-20); Calcium,Total 8.5 mg/dL (8.5-10.1); Chloride 104 mmol/L (98-107); Creatinine, Serum 0.77 mg/dL (0.55-1.02); EST Glomerular Filtration Rate 77 mL/min (>60); Est Glom Filt Rate - Afr Amer 93 mL/min (>60); Estimated Creatinine Clearance 39.59 ml/min; Glucose 116 mg/dL (74-106); Potassium 4.2 mmol/L (3.5-5.1); Sodium Level 140 mmol/L (136-145)
--- NOTE | 2017-12-26 07:01 | MDS.RN ---
Pain interview for FARRAH 12/25/17 was completed on 12/25/17.
--- NOTE | 2017-12-26 10:03 | CASEMGMT ---
Plan of care meeting held. Resident present as well as resident spouse. Resident requesting to discharge on 12/27/17. Team is agreeable to discharge date and plan. Resident plans to discharge to home with spouse. No further therapy recommended at this time. Resident spouse to provide transportation home for resident at time of discharge. Resident has all needed durable medical equipment already set up within the home. Support given. Proposed discharge date: 12/27/17 PLAN: Discharge to home with spouse. Joan STOVALL, ANALYSIS LEAD
[2017-12-26] MEDS: Tuberculin,Purif.prot.deriv. 50 TU/ML Vial 5 ML ID (11:04)
[2017-12-26 15:36] VITALS: BP 121/79; PULSE 129; RESP 20; TEMP 36.3; O2SAT 94
--- NOTE | 2017-12-26 23:11 | DCINST_ITS ---
- Discharge Diagnoses Current Active Problems: Current Active and Chronic Problems Ataxia (Acute) Shortness of breath (Acute) Community acquired pneumonia (Acute) Mediastinal lymphadenopathy (Acute) GERD (gastroesophageal reflux disease) (Chronic) Encephalopathy (Acute) You will use the following diet at home:: No restrictions, Regular Your food should be the consistency of: Regular Your liquids should be the consistency of: Regular/Thin Discharge Activity: Return to Normal Activity, May Shower, Use Walker May resume sexual activity in: No Restrictions Weight Bearing Status: Weight bearing as tolerated Call your doctor if you observe: Fever of 101 or Higher, Inability to urinate, Inability to have a bowel movement, Shortness of breath, Chest pain, Uncontrolle d pain Allergies/Adverse Reactions: Allergies No Known Allergies Allergy (Verified 12/13/17 12:11) Medications to take at Discharge Ranitidine [Zantac] 300 mg PO DAILY 12/13/17 Acetaminophen [Tylenol] 1,000 mg PO Q8H PRN PRN tablet 12/26/17 Albuterol Inhaler [Ventolin Hfa] 2 puff INHALATION Q4H PRN PRN #1 inhaler 12/26/17 Guaifenesin [Mucinex] 1,200 mg PO BID #60 tablet 12/26/17 Menthol/Lanolin/Calamine/Znox [Calmoseptine Ointment] 1 applic TOPICAL 0600,2200 tube 12/26/17 The following prescriptions were given: Albuterol Inhaler [Ventolin Hfa] 2 puff INHALATION Q4H PRN PRN #1 inhaler PRN Reason: Shortness Of Breath Guaifenesin [Mucinex] 1,200 mg PO BID #60 tablet Primary Care Physician: Chauncey Lu DO [Primary Care Provider] - Please follow up with your Primary Care Physician in: 1 week. Test Results: Test results from this visit will be discussed in further detail at your follow- up appointment, if applicable. Please Follow Up With: Chauncey Lu When: 2 WEEKS AFTER TCU DC Please Follow Up With: Dr Raymond Cruz/Olena Person NP When: 1-2 MONTHS, Mass on CT scan Please Follow Up With: Dr Wong/Santa Garcia When: 4-6 WEEKS d/t ataxia/EMG testing as outpt Proposed Discharge Date: 12/27/17
--- NOTE | 2017-12-26 23:11 | PCM.DC.SUM ---
Discharge Date and Diagnosis - Problem List Patient Problems: Active and Suspected Problems Ataxia (Acute) Shortness of breath (Acute) Community acquired pneumonia (Acute) Mediastinal lymphadenopathy (Acute) Encephalopathy (Acute) Date of Admission: 12/18/17 Date of Discharge: 12/27/17 - Primary Discharge Diagnosis Active and Suspected Problems Ataxia (Acute) Shortness of breath (Acute) Community acquired pneumonia (Acute) Mediastinal lymphadenopathy (Acute) Encephalopathy (Acute) - Secondary Discharge Diagnosis Chronic Problems Balance problem (Chronic) GERD (gastroesophageal reflux disease) (Chronic) Hospital Course and Treatment Imaging Results: 12/18/17 16:30 Diet: Regular Diet Is pt able to select menu?: Yes Labs (Last 48 Hours) 12/26/17 12/26/17 05:25 05:25 WBC 9.8 RBC 5.08 Hgb 14.8 Hct 46.3 MCV 91.1 MCH 29.1 MCHC 32.0 RDW 14.7 H RDW Differential 47.6 H Plt Count 434 MPV 9.1 Immature Gran % (Auto) 2.300 H Neut % (Auto) 54.9 Lymph % (Auto) 28.9 [place] % (Auto) 9.9 Eos % (Auto) 2.6 Baso % (Auto) 1.4 H Absolute Neuts (auto) 5.4 Absolute Lymphs (auto) 2.82 Total Counted Not Reportable Diff Path Review May foll Sodium 140 Potassium 4.2 Chloride 104 Carbon Dioxide 30.0 Anion Gap 6 BUN 18 Creatinine 0.77 Estim Creat Clear Calc 39.59 Est GFR (MDRD) Af Amer 93 Est GFR (MDRD) Non-Af 77 BUN/Creatinine Ratio 23.3 H Glucose 116 H Calcium 8.5 Operations: None Procedures: None Summary of Care Provided: The patient is a 77 year old Female with below past medical history hospitalized for community acquired pneumonia, ataxia, complicated by metabolic encephalopathy, admitted to TCU with debility, here for rehabilitation, strengthening, prior to discharge home with spouse. Discharge home with spouse. Patient Problems: Active and Suspected Problems Ataxia (Acute) Shortness of breath (Acute) Community acquired pneumonia (Acute) Mediastinal lymphadenopathy (Acute) Encephalopathy (Acute) - Physical Exam Vital Signs Temp Pulse Resp BP Pulse Ox 97.3 F L 129 H 20 H 121/79 H 94 12/26/17 15:36 12/26/17 15:36 12/26/17 15:36 12/26/17 15:36 12/26/17 15:36 Oxygen Flow Rate (L/min) 2 Oxygen Delivery Method Room Air Weight: 67.273 kg Body Mass Index (BMI) 26.2 Intake and Output for Last 24 Hours 12/24/17 12/25/17 12/26/17 23:59 23:59 23:59 Intake Total 1000 / 1000 1120 / 1120 600 / 600 Balance 1000 / 1000 1120 / 1120 600 / 600 Laboratory Tests Past 24 Hrs 12/26/17 12/26/17 05:25 05:25 WBC 9.8 RBC 5.08 Hgb 14.8 Hct 46.3 MCV 91.1 MCH 29.1 MCHC 32.0 RDW 14.7 H RDW Differential 47.6 H Plt Count 434 MPV 9.1 Immature Gran % (Auto) 2.300 H Neut % (Auto) 54.9 Lymph % (Auto) 28.9 [place] % (Auto) 9.9 Eos % (Auto) 2.6 Baso % (Auto) 1.4 H Absolute Neuts (auto) 5.4 Absolute Lymphs (auto) 2.82 Total Counted Not Reportable Diff Path Review May foll Sodium 140 Potassium 4.2 Chloride 104 Carbon Dioxide 30.0 Anion Gap 6 BUN 18 Creatinine 0.77 Estim Creat Clear Calc 39.59 Est GFR (MDRD) Af Amer 93 Est GFR (MDRD) Non-Af 77 BUN/Creatinine Ratio 23.3 H Glucose 116 H Calcium 8.5 Discharge Diet: No Restrictions Discharge Activity: Return to Normal Activity, May Shower, Use Walker May resume sexual activity in: No Restrictions Weight Bearing Status: Weight bearing as tolerated Call your doctor if you observe: Fever of 101 or Higher, Inability to urinate, Inability to have a bowel movement, Shortness of breath, Chest pain, Uncontrolled pain Home Medications: Medications to take at Discharge Ranitidine [Zantac] 300 mg PO DAILY 12/13/17 Acetaminophen [Tylenol] 1,000 mg PO Q8H PRN PRN tablet 12/26/17 Albuterol Inhaler [Ventolin Hfa] 2 puff INHALATION Q4H PRN PRN #1 inhaler 12/26/17 Guaifenesin [Mucinex] 1,200 mg PO BID #60 tablet 12/26/17 Menthol/Lanolin/Calamine/Znox [Calmoseptine Ointment] 1 applic TOPICAL 0600,2200 tube 12/26/17 Following Prescrptions Were Given to Patient: Albuterol Inhaler [Ventolin Hfa] 2 puff INHALATION Q4H PRN PRN #1 inhaler PRN Reason: Shortness Of Breath Guaifenesin [Mucinex] 1,200 mg PO BID #60 tablet Primary Care Physician: Chauncey Lu DO [Primary Care Provider] - Please follow up with your Primary Care Physician in: 1 week. Please Follow Up With: Chauncey Lu When: 2 WEEKS AFTER TCU DC Please Follow Up With: Dr Raymond Cruz/Olena Person NP When: 1-2 MONTHS, Mass on CT scan Please Follow Up With: Dr Wong/Santa Garcia When: 4-6 WEEKS d/t ataxia/EMG testing as outpt Disposition: Home Minutes spent on discharge:: 30 Patient Condition:: Stable Medical Necessity - Tobacco Use Smoking Status: Never smoker Tobacco Use: Secondhand - Cigarettes. Meaningful Use Info Meaningful Use Diagnoses (Choose all that apply): None applicable
[2017-12-27] MEDS: Enoxaparin 40 MG/0.4 ML Syringe SC (06:14)
[2017-12-27] MEDS: guaiFENesin 1,200 MG Tablet 1200 MG PO (06:14)
[2017-12-27] MEDS: Famotidine 20 MG Tablet PO (06:14)
[2017-12-27] MEDS: Menthol/Lanolin/Calamine/Znox 113 GM Tube 1 APPLIC TOPICAL (06:19)
[2017-12-27 07:52] VITALS: O2SAT 94
[2017-12-27 11:32] VITALS: BP 130/80; PULSE 104; RESP 18; TEMP 36.7; O2SAT 94
[2017-12-27 13:15] LABS: Pathologist Review Reviewed
--- NOTE | 2017-12-31 13:41 | MDS.RN ---
Information for the mds was obtained from review of the clinical record, interview of resident, staff, and direct observation of resident's care.
== END 2017-12-27 10:05 | disposition home or self-care (01) | DRG 947 ==
PROVIDERS: Admitting Provider Family Medicine Geriatric Medicine; Family Provider Student in an Organized Health Care Education/Training Program; PCP Student in an Organized Health Care Education/Training Program; Referring Provider Family Medicine Geriatric Medicine; Visit Provider Family Medicine Geriatric Medicine
DX: R53.81 Other malaise (principal); J18.9 Pneumonia, unspecified organism; G93.41 Metabolic encephalopathy; B37.9 Candidiasis, unspecified; K21.9 Gastro-esophageal reflux disease without esophagitis; R27.0 Ataxia, unspecified; R59.0 Localized enlarged lymph nodes
CPT/HCPCS: 36415; 80048; 85025; 92507; 92523; 94640; 97110; 97116; 97163; 97166; 97530; 97535; 97802

== ENCOUNTER → 2018-02-25 13:09 | Outpatient (CLI) | payer MEDICARE, OTHER, SELFPAY ==
--- NOTE | 2018-02-25 13:12 | CT_ITS ---
STUDY: CT CHEST WITHOUT CONTRAST REASON FOR EXAM: Female, 77 years old. Cough RADIATION DOSAGE (If Supplied By Facility): CTDIvol = ( 9.16 ) mGy, DLP = ( 308.98 ) mGycm TECHNIQUE: Transaxial imaging of the chest was performed without intravenous contrast material. Sagittal and coronal reconstructions were performed. Individualized dose optimization techniques were used for this CT. COMPARISON: Chest radiograph dated December 16, 2017; chest CTA dated December 13, 2017 FINDINGS: Lines and tubes: None. Airways: Normal in appearance. Lungs: Under aerated. Coarse markings are present in the right lung base just above the diaphragm with a few air bronchograms. Minimal left apical scarring. Minimal dense opacity in the lingula. Pleura: No effusion. Mediastinum: Scattered small nodes without suspicious features. Marisela: Unremarkable allowing for lack of contrast in the adjacent vessels. Cardiac: Normal size heart. Vascular: Aorta: Unremarkable. Pulmonary arteries: Unremarkable. Arterial: Unremarkable. Venous: Unremarkable. Soft tissues: Unremarkable. Bones: Mild degenerative changes. Stable marked compression of T12. Upper abdomen: Cholecystectomy clips are present. No acute or significant abnormalities in the upper abdomen. CT/Chest without Contrast IMPRESSION: The lungs are under aerated. There are mild groundglass opacities bilaterally due to under aeration. There is atelectasis in the right lung base above the diaphragm and in the lingula. There has been resolution of the previously seen lingular consolidation. There is no pleural effusion or significant lymphadenopathy. Electronically Signed: Mary Ann MD at 14:48 EST Tel Direct: [phone], Service support ,
== END ==
PROVIDERS: Family Provider Student in an Organized Health Care Education/Training Program; PCP Student in an Organized Health Care Education/Training Program; Referring Provider Nurse Practitioner Acute Care; Visit Provider Nurse Practitioner Acute Care
DX: J18.9 Pneumonia, unspecified organism (principal)
CPT/HCPCS: 71250

== ENCOUNTER 2020-04-28 10:58 | Outpatient (RCR) | payer MEDICARE, OTHER, SELFPAY ==
[2018-02-28 07:58] VITALS: BMI 26.7
== END 2020-04-28 23:59 ==
LOC: IMMUN 10:58
PROVIDERS: PCP Student in an Organized Health Care Education/Training Program; Visit Provider Family Medicine
DX: Z23 Encounter for immunization (principal)
CPT/HCPCS: 0011A; 0012A

== ENCOUNTER 2021-07-18 12:23 | Emergency (ER) | payer MEDICARE, OTHER, SELFPAY ==
[2021-07-18 12:24] VITALS: BP 143/109; PULSE 96; RESP 17; TEMP 36.8; O2SAT 98; BMI 27.4
[2021-07-18 12:26] VITALS: BP 143/109; PULSE 96; RESP 17; TEMP 36.8; O2SAT 98
--- NOTE | 2021-07-18 12:56 | ED.VIS.GI ---
HPI HPI - GI History of Present Illness Chief Complaint: Abd Pain Detail of Chief Complaint: Left lower quadrant abdominal pain that started yesterday according to [place] Informant: patient and spouse/S.O. Abdominal Pain/Flank Pain Onset: Yesterday Context: Sudden Onset Timing: Intermittent (Presently patient is complaining of no pain) Quality: Dull Location: LLQ Current Severity: Gone Maximum Severity: Severe Worsened by: Nothing Relieved by: Nothing Nausea/Vomiting/Emesis GI Symptom: Positive for Nausea; Negative for Vomiting Diarrhea/Melena/Hematochezia GI Symptom: Negative for Diarrhea, Melena and Hematochezia Associated Symptoms Associated Symptoms: Negative for Dysuria, Frequency, Hematuria and Urgency LMP: Postmenopausal Narrative Narrative: Patient is a 80-year-old woman who presents with left lower quad abdominal pain that started last evening. Apparently the pain was significant that it kept her up all night according to the . She is not a good informant. She would answer some questions I do not know. She responded I do not know to dysuria, frequency, urgency or hematuria. She he responded I do not know to history of renal lithiasis. She denies history of diverticulosis or diverticulitis. She does endorse nausea. She does endorse constipation. She states her last bowel movement was 2 days ago at was normal for her. There is no history of trauma. She denies back or flank pain. She has no other complaints. Prior similar symptoms: No Recent Illness/Hospitalization: No [facility] Medical History (Updated 07/18/21 @ 15:[address] Marty Maria MD) Acute gastritis without hemorrhage Allergic rhinitis Arthritis of left knee Ataxia Balance problem Community acquired pneumonia Diaphragmatic hernia without mention of obstruction or gangrene Diverticulitis of colon Encephalopathy Esophageal dysphagia Esophagitis GERD (gastroesophageal reflux disease) HLD (hyperlipidemia) Hx of colonic polyps Major depressive disorder, single episode Mediastinal lymphadenopathy Pneumonia Shortness of breath Home Medications ranitidine HCl 300 mg PO DAILY 12/13/17 [History Last Taken 12/18/17 10:00] guaifenesin 1,200 mg PO BID #60 tab 12/26/17 [Rx Last Taken Unknown] cetirizine 10 mg capsule 10 mg PO DAILY cap 01/16/18 [History Last Taken Unknown] multivitamin 1 tab PO DAILY 01/16/18 [History Last Taken Unknown] ranitidine HCl 300 mg capsule 300 mg PO DAILY 01/16/18 [History Last Taken Unknown] nitrofurantoin monohyd/m-cryst 100 mg PO Q12 #14 capsule 07/18/21 [Rx Last Taken Unknown] Allergy/AdvReac Type Severity Reaction Status Date / Time naproxen [From Aleve] Allergy Severe Anaphylaxis Verified 07/18/21 12:23 Surgical History Hx of cholecystectomy Social History (Updated 07/18/21 @ 13:[address] Marty Maria MD) household members: spouse Smoking Status: Never smoker alcohol intake: never substance use type: does not use ROS ROS ED Constitutional Constitutional ED: Denies chills, fever(s), subjective, sweats or weight loss ENT ENT ED: Denies ear pain, rhinorrhea or sore throat Cardiovascular Cardiovascular: Denies chest pain, orthopnea, palpitations or racing heartbeat Respiratory/Chest Respiratory/Chest: Denies cough, dyspnea, dyspnea on exertion, orthopnea or sputum Gastrointestinal Gastrointestinal: Reports abdominal pain, constipation and nausea; Denies diarrhea or vomiting Genitourinary Genitourinary ED: Denies dysuria, hematuria or urinary frequency Musculoskeletal Musculoskeletal: Denies arthralgias, back pain, myalgias or neck pain Integumentary Denies abscess, Abrasions or rash Neurologic Neurologic: Denies headache(s), paresthesias or weakness Psychiatric Psychiatric: Denies anxiety, depression or suicidal thoughts Endocrine Endocrinology: Denies polydipsia, polyphagia or polyuria Hematologic/Lymphatic Hematologic/Lymphatic: Denies easy bleeding, easy bruising or lymphadenopathy EXAM Physical Exam Const Vital Signs: 07/18/21 12:24 07/18/21 12:26 Temperature 98.3 F 98.3 F Temperature Source Oral Oral Pulse Rate 96 96 Respiratory Rate 17 17 Blood Pressure 143/109 H 143/109 H Blood Pressure Mean 120 120 Pulse Ox 98 98 Oxygen Delivery Method Room Air Room Air Positive well nourished and well developed General Appearance ED: well developed and NAD; Negative for pallor HEENT Reports TM's clear and dry mucous membranes normocephalic and atraumatic Tympanic Membrane ED: Yes TM's clear Mouth ED: Yes dry mucous membranes Mouth: dry mucous membranes Eyes PERRL and EOMs intact bilaterally General Eye ED: Negative for pale conjunctiva or scleral icterus Neck no lymphadenopathy, supple and no JVD Resp normal respiratory effort and clear to auscultation bilaterally Cardio regular rate, regular rhythm, S1 normal heart sound, S2 normal heart sound and no murmurs GI non-tender, non-distended and no masses Auscultation: hypoactive bowel sounds; Negative for normoactive bowel sounds Palpation: soft; Negative for hepatomegaly, splenomegaly, mass or pulsatile mass Back/Spine no CVA tenderness Cervical Spine: Negative for cervical spine tenderness Thoracic Spine / Upper Back: Negative for thoracic spinal tenderness Lumbar Spine / Lower Back: Negative for lumbar spinal tenderness Extremity full ROM General Extremety ED: Negative for edema or tenderness General Extremity: Negative for edema Neuro CN's II-XII intact bilaterally Sensorium / Orientation: alert, oriented to person, oriented to place and oriented to time Psych thought process normal Psych Narrative: Affect is flat Skin no wounds General Skin Exam: Negative for jaundice or pallor Lesions: no lesions Rashes: no rashes MDM MDM MDM Narrative Medical decision making narrative: Patient not a good informant. With left lower quad abdominal pain will need to evaluate for urologic etiology versus GI etiology versus abdominal pain of unknown etiology. Appropriate blood work was ordered. Imaging was not ordered and will be dependent on laboratory results. Lab Data Attestation: I reviewed the patient's lab results. Lab results narrative: Glucose is 138. Urine is consistent with infection with pyuria and 4+ bacteria. Culture was sent and patient received first dose of antibiotics in the emergency department. Labs: Laboratory Results - last 24 hr 07/18/21 07/18/21 07/18/21 12:55 12:55 14:50 WBC 9.4 RBC 5.63 H Hgb 16.5 H Hct 50.6 H MCV 89.9 MCH 29.3 MCHC 32.6 RDW Std Deviation 46.0 H RDW Coeff of Abundio 13.9 Plt Count 173 MPV 9.9 Immature Gran % (Auto) 0.600 Neut % (Auto) 92.7 H Lymph % (Auto) 5.4 L [place] % (Auto) 0.9 Eos % (Auto) 0.1 Baso % (Auto) 0.3 Absolute Neuts (auto) 8.7 H Absolute Lymphs (auto) 0.51 L Nucleated RBC % 0 Differential Comment COMMENT Sodium 143 Potassium 3.5 Chloride 106 Carbon Dioxide 27.0 Anion Gap 10 BUN 11 Creatinine 0.86 Estim Creat Clear Calc 41.95 Est GFR (MDRD) Af Amer 81 Est GFR (MDRD) Non-Af 67 BUN/Creatinine Ratio 12.7 Glucose 138 H Calcium 9.3 Urine Color Yellow Urine Clarity Sl. Cloudy Urine pH 6.0 Ur Specific [place] 1.015 Urine Protein 30 H Urine Glucose (UA) Normal Urine Ketones 15 H Urine Occult Blood 150 H Urine Nitrite Positive H Urine Bilirubin Negative Urine Urobilinogen Normal Ur Leukocyte Esterase 500 H Urine RBC 5-10 SEEN Urine WBC 50-100 SEEN Ur Squamous Epith Cells 0-5 SEEN Urine Bacteria 4+ Urine Mucus 1+ Discharge Plan Triage Chief Complaint: Abd Pain ED Provider: Marty Maria Dx/Rx/DC Orders Clinical Impression: Left lower quadrant abdominal pain of unknown etiology, Urinary tract infection Instructions: ED CYSTITIS Female Adult Prescriptions: New nitrofurantoin monohyd/m-cryst [nitrofurantoin monohyd/m-cryst] 100 MG capsule 100 mg PO Q12 Qty: 14 RF: 0 No Action multivitamin [Multiple Vitamins] tablet 1 tab PO DAILY RF: 0 Zyrtec 10 mg capsule 10 mg PO DAILY RF: 0 ranitidine HCl 300 mg capsule 300 mg PO DAILY RF: 0 ranitidine HCl 300 MG tablet 300 mg PO DAILY RF: 0 guaifenesin 1,200 MG tablet 1,200 mg PO BID Qty: 60 RF: 0 Primary Care Provider: Chauncey Lu Referrals: Chauncey Lu DO [Primary Care Provider] - 3-5 Days Disposition Disposition: Home, Self Care
[2021-07-18 13:03] LABS: Absolute Lymphocyte Count 0.51 X10^3/uL (0.83-4.51); Absolute Neutrophil Count 8.7 X10^3/uL (2.0-7.7); Basophil# 0.03 X10^3/uL; Basophil% 0.3 % (0-1); Eosinophil# 0.01 X10^3/uL; Eosinophils% 0.1 % (0-5); Hematocrit 50.6 % (37-47); Hemoglobin 16.5 g/dL (12.0-15.0); Lymphocyte # 0.51 X10^3/ul (0.83-4.51); Lymphocyte % 5.4 % (19-41); Mean Corp Hgb Conc 32.6 g/dL (32-36); Mean Corpuscular Hgb 29.3 pg (27.0-32.0); Mean Corpuscular Volume 89.9 fL (81-99); Mean Platelet Vol. 9.9 fl (6.2-12.0); Monocyte# 0.08 X10^3/uL; Monocyte% 0.9 % (0-10); NRBC Flagged by Analyzer 0 % (0-5); Neutrophil # 8.68 X10^3/uL (2.7-7.7); Neutrophil % 92.7 % (47-70); POSITIVE DIFFERENTIAL YES; Platelet Count 173 K/mm3 (150-450); RBC Distribution Width CV 13.9 % (11.6-14.6); Red Blood Count 5.63 M/mm3 (4.2-5.4); White Blood Count 9.4 K/mm3 (4.4-11.0)
[2021-07-18 13:04] LABS: Differential Indicated SCAN CRITERIA MET
[2021-07-18 13:16] LABS: Anion Gap 10 (5-15); BUN 11 mg/dL (7-18); BUN/Creat Ratio 12.7 RATIO (10-20); Calcium,Total 9.3 mg/dL (8.5-10.1); Chloride 106 mmol/L (98-107); Creatinine, Serum 0.86 mg/dL (0.55-1.02); EST Glomerular Filtration Rate 67 mL/min (>60); Est Glom Filt Rate - Afr Amer 81 mL/min (>60); Estimated Creatinine Clearance 41.95 ml/min; Glucose 138 mg/dL (74-106); Potassium 3.5 mmol/L (3.5-5.1); Sodium Level 143 mmol/L (136-145)
--- NOTE | 2021-07-18 14:56 | ED.RN ---
PROVIDER AWARE OF SPOUSE CONCERNS REGARDING GI CA DT FATHER HAVING GI CA.
[2021-07-18 14:58] LABS: Color, Urine Yellow (Yellow); Glucose, Dipstick Normal (Normal); Ketone-Dipstick 15 mg/dl (Negative); Leukocyte Esterase-Dipstick 500 /ul (Negative); Nitrite-Dipstick Positive (Negative); Occult Blood-Urine 150 /ul (Negative); Protein-Dipstick 30 mg/dl (Negative); Specific Gravity, Urine 1.015 (1.002-1.030); Urine Bilirubin Dipstick Negative (Negative); Urine Clarity Sl. Cloudy (Clear); Urine Urobilinogen Normal (Normal)
[2021-07-18 15:13] LABS: Bacteria 4+ /hpf (None Seen); Mucous, Urine 1+ /hpf (<or=2+); Red Blood Cells-Urine 5-10 SEEN /hpf (0-5); Squamous Epithelial Cells - UA 0-5 SEEN /hpf (5-10); White Blood Cells 50-100 SEEN /hpf (0-5)
[2021-07-18] MEDS: Nitrofurantoin Macrocrystals 100 MG Capsule PO (15:26)
== END 2021-07-18 15:32 | disposition home or self-care (01) ==
PROVIDERS: Emergency Provider Emergency Medicine; PCP Student in an Organized Health Care Education/Training Program; Visit Provider Emergency Medicine
DX: R10.32 Left lower quadrant pain (principal); N39.0 Urinary tract infection, site not specified
CPT/HCPCS: 80048; 81001; 85025; 99284; A4216

== ENCOUNTER 2021-09-01 10:48 | Day surgery (SDC) | payer MEDICARE, OTHER, SELFPAY ==
[2021-09-01] VITALS (11 sets, daily range): BP systolic 129–174; BP diastolic 59–92; PULSE 63–84; RESP 16–18; TEMP 36.2–36.8; O2SAT 93–100; BMI 24.2
[2021-09-01] MEDS: Acetaminophen 500 MG Tablet 1000 MG PO (11:52)
[2021-09-01] MEDS: Lactated Ringers 1,000 ML 15 ML IV (11:54)
--- NOTE | 2021-09-01 12:08 | PCM.HP.BLA ---
History and Physical Date of Admission: 09/01/21 History and physical reviewed. Patient seen and examined. No clinically relevant updates since the H&P was performed and entered.
--- NOTE | 2021-09-01 12:40 | EMB_PTH ---
PATIENT: MACEY WISE LOC: [facility] [place] U#:[id number] AGE/SX: 80/F ROOM: RE09/01/[address]: Dr. Lilian Tapia MD : 1940 BED: DIS: 09/01/2021 SPEC #: [id number] RECD: 09/01/21 14:26 STATUS: ABDOULAYE REBenson #: [id number] TORIE: 09/01/21 12:[address]: Lilian Tapia DEPT: SURGICAL PATHOLOGY RECD BY: Erma Cuevas ENTERED: 09/02/21 08:57 SP TYPE: ENDOM BX/C JAMIE DR: Dr. Chauncey Lu, DO Tissues: Endometrium, NOS Procedures: Surgery Specimen Level IV HEADER OPERATION: Hysteroscopy D & C PRE-OP DIAGNOSIS: Postmenopausal bleeding TISSUE SUBMITTED: Endometrial curettings MICROSCOPIC DIAGNOSIS Endometrium, curettings: Rare fragments of inactive endometrium with focal cystic change. Rare strips of benign squamous mucosa. AM:gale 09/06/2021 MICROSCOPIC DESCRIPTION Slides are reviewed. GROSS DESCRIPTION Received in fixative is one container labeled with the patient's name and designated endometrial curettings. The specimen consists of multiple fragments of kapadia mucoid tissue that in aggregate measure 2.5 x 0.5 x 0.1 cm. The specimen is totally submitted in one cassette. / SJ:gale 09/02/2021 TC:5 CPT: 94081
--- NOTE | 2021-09-01 13:23 | DCINST_ITS ---
Discharge Instructions Diet Discharge Diet: No restrictions Activity May resume sexual activity in: 2 weeks Lifting Restrictions: none Dressing / Incision Call your doctor if your incision/area has: Sudden Increased Bleeding and Foul Smelling Discharge Call your doctor if you observe: Fever of 101 or Higher and Using more than 1 pad per hour (for 2 hrs in a row) Follow Up Care Please Follow Up With: Lilian Tapia MD When: 2-4 weeks or as needed. Call [phone] to make an appointment or with any concerns. Test Results: Test results from this visit will be discussed in further detail at your follow- up appointment, if applicable. Discharge Plan Admission Primary Reason for Your Visit: Hysteroscopy, dilation and curettage Attending Provider: Lilian Tapia Primary Care Provider: Chauncey Lu Discharge Orders/Prescriptions Prescriptions: Continued multivitamin [Multiple Vitamins] tablet 1 tab PO DAILY ascorbic acid (vitamin C) [Vitamin C] 500 mg Tablet Extended Release 500 mg PO DAILY cholecalciferol (vitamin D3) [Vitamin D3] 25 mcg (1,000 unit) Capsule 25 mcg PO DAILY Referrals / Follow Up: Chauncey Lu DO [Primary Care Provider] - Disposition Disposition (needs filled in before D/C Order can be placed): Home, Self Care
[2021-09-01] MEDS: Vasopressin 20 UNITS/ML Vial (13:50)
--- NOTE | 2021-09-01 14:00 | PCM.OPRPT ---
Problems Associated Problem List Diagnoses (1) Thickened endometrium: (2) Stenosis, cervix: Report of Operation Date of Procedure: 09/01/21 Pre-Operative Diagnosis: thickened endometrium, stenotic cervix Post-Operative Diagnosis: same Surgery/Procedure Performed:: hysteroscopy D&C Description of Surgical Findings:: hematometrium, thin atrophic endometrium, normal cervix Surgeon: Lilian Tapia water hydrant installer: None Type of Anesthesia: MAC Anesthesiologist: Radha Grant Special Medications: none Specimen's removed: endometrial curettings Drains: none Estimated Blood Loss (mL): 10 Fluids Replaced: 200 Description of Procedure: The patient was taken to the OR where she was prepped and draped in dorsal lithotomy position. The weighted speculum was placed in the vagina and the anterior lip of the cervix was grasped with a single-tooth tenaculum. 8 cc of vasopressin solution containing a total of 4 units of vasopressin was injected circumferentially around the cervix. Immediately some dark brown fluid started extruding from the cervical os consistent with hematometra. The cervix was dilated serially with Hegar dilators. The 7.2 hysteroscope was placed into the uterine cavity and the above findings were noted. Bilateral tubal ostia were identified. The hysteroscope was removed. A gentle sharp curettage was done of the uterine cavity. The instruments were removed from the vagina. The specimen was handed off and sent to pathology. All sponge and needle counts were correct. Vaginal sweep was performed by me. The patient was awakened and taken to the recovery room in stable condition. Hysteroscopic fluid deficit was approximately 200 cc of normal saline No focal abnormalities of vagina, cervix, endocervix or endometrium were noted. Grafts/Implants Used: none Procedure Start Time: 13:47 Procedure Stop Time: 13:58 Complications none Admit VTE Documentation VTE Present on Admission: No VTE Mechan Device Prophylaxis: SCD's VTE Pharm Prophylaxis ordered?: No Reason prophylaxis not ordered:: Procedure Not Indicated
== END 2021-09-01 17:00 | disposition home or self-care (01) ==
LOC: SDC 10:50 → AC 11:57
PROVIDERS: PCP Student in an Organized Health Care Education/Training Program; Referring Provider Obstetrics & Gynecology; Visit Provider Obstetrics & Gynecology
PROC: 0UB98ZZ Excision of Uterus, Via Natural or Artificial Opening Endoscopic (ICD-10-PCS; CPT 58558; principal; 2021-09-01 12:25)
DX: N85.8 Other specified noninflammatory disorders of uterus (principal)
CPT/HCPCS: 58558; 88305; J7120; J2405

== ENCOUNTER 2023-02-02 10:03 | Inpatient (IN) | payer MEDICARE, OTHER, SELFPAY ==
[2023-02-02] VITALS (14 sets, daily range): BP systolic 73–193; BP diastolic 36–103; PULSE 87–133; RESP 14–30; TEMP 36.7–37.5; O2SAT 87–98; BMI 55.0; BMI 26.2
--- NOTE | 2023-02-02 10:44 | CT_ITS ---
STUDY: CT ABDOMEN AND PELVIS WITH CONTRAST REASON FOR EXAM: Female, 82 years old. 2 day history of left-sided abdominal pain with nausea and vomiting. RADIATION DOSAGE (If Supplied By Facility): CTDIvol = ( 12.12 ) mGy, DLP = ( 821.57 ) mGycm TECHNIQUE: Transaxial images were obtained from the dome of the diaphragm to the symphysis pubis without oral contrast. IV 100mL Isovue-300 was administered. Sagittal and coronal images were reconstructed. Individualized dose optimization techniques were used for this CT. COMPARISON: None. FINDINGS: Mild degree of increased markings at the right lung base suggestive of atelectasis and/or early infiltrate. Mild increased markings also seen in the posterior segment of the lingular aspect of the left upper lobe. Coronary artery calcification. There is decreased attenuation of the liver consistent with steatosis. There are surgical clips in the gallbladder fossa consistent with a prior cholecystectomy. Normal spleen. Normal pancreas. Normal bilateral adrenal glands. There is a 1.7 cm x 1.8 cm cyst in the mid lateral aspect of the right kidney. 6.4 mm cyst in the medial upper pole of the right kidney. Mild degree of left hydronephrosis. There is a 9 mm calculus in the left renal pelvis causing a mild degree of left hydronephrosis. Mild degree of lumbar left perinephric stranding. Normal visualized stomach. Normal small intestine. There are multiple colonic diverticula consistent with diverticulosis. The appendix is visualized and appears normal. Normal abdominal aorta. Normal inferior vena cava. Normal retroperitoneum. Normal urinary bladder. Normal abdominal wall. There are degenerative changes of the visualized lumbar spine. Minimal anterolisthesis of L5 on S1. Almost complete collapse of the T12 vertebrae. CT/Abdomen/Pelvis W IV Cont ONLY IMPRESSION: 9 mm calculus in the left renal pelvis causing a mild degree of left hydronephrosis and left perinephric stranding. Right renal cysts. Status post cholecystectomy. Fatty infiltration of the liver. Electronically Signed: Petar Yoon MD at 12:06 EST ,
--- NOTE | 2023-02-02 10:45 | ED.VIS.GI ---
HPI HPI - GI History of Present Illness Chief Complaint: Abd Pain Detail of Chief Complaint: 3-day history of left-sided abdominal pain. Informant: patient and spouse/S.O. Abdominal Pain/Flank Pain Onset: Days Context: Gradual Onset Timing: Continuous Quality: Cramping and Dull Location: LLQ Current Severity: Mild Maximum Severity: Mild Nausea/Vomiting/Emesis GI Symptom: Negative for Nausea or Vomiting Diarrhea/Melena/Hematochezia GI Symptom: Positive for Diarrhea; Negative for Melena or Hematochezia Severity: Mild Associated Symptoms Associated Symptoms: Negative for Dysuria, Frequency, Hematuria or Urgency Narrative Narrative: 82-year-old female history of prior cholecystectomy. Complaining of left sided and left lower quadrant abdominal pain for about 3 days. Had some loose stools since that time has not had a bowel movement. Denies any dysuria. No melena. No fever. No trauma. No nausea or vomiting. Prior similar symptoms: Yes Recent Illness/Hospitalization: No PFSH PFSH Medical History Acute gastritis without hemorrhage Alcohol use Allergic rhinitis Anemia Ataxia Balance problem Community acquired pneumonia Diaphragmatic hernia without mention of obstruction or gangrene Diverticulitis of colon Encephalopathy Esophageal dysphagia Esophagitis GERD (gastroesophageal reflux disease) History of echocardiogram History of edema HLD (hyperlipidemia) Hx of colonic polyps Major depressive disorder, single episode Mediastinal lymphadenopathy Non-smoker Pneumonia Shortness of breath Shortness of breath on exertion Wears glasses Home Medications multivitamin (Multiple Vitamins tablet) 1 tab PO DAILY 01/16/18 [History Last Taken Unknown] ascorbic acid (vitamin C) 500 mg tablet,extended release (Vitamin C ER) 500 mg PO DAILY 08/26/21 [History Last Taken Unknown] cholecalciferol (vitamin D3) 25 mcg (1,000 unit) capsule (Vitamin D3) 25 mcg PO DAILY 08/26/21 [History Last Taken Unknown] Allergy/AdvReac Type Severity Reaction Status Date / Time naproxen [From Aleve] Allergy Severe Anaphylaxis Verified 02/02/23 10:03 Surgical History Hx of cholecystectomy Hx of colonoscopy Social History household members: spouse Smoking Status: Never smoker alcohol intake: never substance use type: does not use ROS ROS ED ROS Narrative Left-sided abdominal pain. Review of Systems ROS Unobtainable: Denies due to encephalopathy Constitutional Constitutional ED: Denies chills or fever(s) ENT ENT ED: Denies ear pain Cardiovascular Cardiovascular: Denies chest pain Respiratory/Chest Respiratory/Chest: Denies cough or dyspnea Gastrointestinal Gastrointestinal: Reports constipation and diarrhea; Denies melena, nausea or vomiting Genitourinary Genitourinary ED: Denies dysuria or hematuria Musculoskeletal Musculoskeletal: Denies arthralgias or back pain Integumentary Denies abscess, Abrasions or rash Neurologic Neurologic: Denies headache(s) Psychiatric Psychiatric: Denies anxiety Endocrine Endocrinology: Denies polydipsia Hematologic/Lymphatic Hematologic/Lymphatic: Denies easy bleeding or easy bruising Allergic/Immunologic Allergic/Immunologic ED: Denies mouth swelling, tongue swelling or urticaria EXAM Physical Exam Narrative Exam Narrative: 82-year-old female vital signs are stable afebrile. No acute distress. Accompanied by her . H EENT exam mildly dry mucous members. Otherwise unremarkable. Neck nontender. Lungs clear. Heart regular rhythm no murmur. Abdomen is soft, nondistended, normal bowel sounds without peritoneal signs. She really has no significant left lower quadrant left-sided tenderness at this time. There is no hernia or mass. No distention. Right upper and right lower quadrants are unremarkable. No pulsatile mass. Moving all 4 extremities. Nontender no edema. Back nontender. She is awake and alert. No focal motor deficits. Const Vital Signs: 02/02/23 10:04 02/02/23 14:05 Temperature 98.1 F 98.9 F Temperature Source Temporal Pulse Rate 111 H 103 H Respiratory Rate 14 20 H Blood Pressure 165/87 H 126/68 H Blood Pressure Mean 113 87 Pulse Ox 97 90 Oxygen Delivery Method Room Air Positive well nourished and well developed; Negative for obese, cachectic, contractures or unkempt General Appearance ED: well developed and NAD; Negative for unkempt, cachectic, contractures or pallor Nutritional Appearance: Negative for cachectic or obese HEENT Reports dry mucous membranes normocephalic and atraumatic; Negative for trauma or tenderness Mouth ED: Yes dry mucous membranes Mouth: dry mucous membranes Eyes PERRL and EOMs intact bilaterally General Eye ED: Negative for pale conjunctiva or scleral icterus Neck no lymphadenopathy, supple and no JVD General: Negative for tenderness Carotids: Negative for other Lymph Lymphatic: Negative for other Resp normal respiratory effort and clear to auscultation bilaterally Effort and Inspection: Negative for respiratory distress Auscultation: Negative for rales, rhonchi or wheezes Cardio regular rate, regular rhythm, S1 normal heart sound, S2 normal heart sound and no murmurs Rate: Negative for bradycardia or tachycardic Rhythm: Negative for abnormal rhythm GI non-tender, non-distended and no masses Inspection: Negative for abdominal distention Auscultation: normoactive bowel sounds Palpation: soft; Negative for tender or guarding Back/Spine no CVA tenderness General Back: Negative for CVA tenderness Cervical Spine: Negative for cervical spine tenderness Thoracic Spine / Upper Back: Negative for thoracic spinal tenderness Lumbar Spine / Lower Back: Negative for lumbar spinal tenderness Coccyx: Negative for other Extremity full ROM General Extremety ED: Negative for edema or tenderness General Extremity: Negative for edema Neuro CN's II-XII intact bilaterally, moves all extremities and no sensory deficits noted Sensorium / Orientation: alert, oriented to person, oriented to place and oriented to time; Negative for orientation impaired, confused, lethargic or stuporous Motor Exam: strength 5/5 throughout Psych mental status grossly normal and thought process normal Appearance: Negative for unkempt Attitude: No agitated Mood & Affect: Negative for depressed, anxious or tearful Skin no wounds General Skin Exam: Negative for jaundice or pallor Lesions: no lesions Rashes: no rashes Trauma: Negative for abrasion Nails: Negative for discolored MDM MDM MDM Narrative Medical decision making narrative: 82-year-old female with a benign exam complaining of left-sided abdominal pain for about 3 days. CAT scan labs are pending. I do not think she needs anything for pain and she is having no nausea at this time. Multiple repeat exams patient had continued pain has been given 2 different dosages of morphine. She is given Zofran for nausea. Because the white cells in her urine I did a urine culture and gave her a dose of Rocephin IV. I was able to get a hold of Dr. Baljeet dallas who is not on-call for urology but was willing to take part in this patient's care which is appreciated. He has surgical cases this afternoon and we will add her on to do surgery to either break up or remove the left UPJ 9 mm stone. Patient is aware of the plan. History & Record Review Discussion w/independent historian: Patient and Family Additional record(s) reviewed:: Prior inpatient record, Prior outpatient record, Prior ED visit and Prior labs Lab Data Attestation: I reviewed the patient's lab results. Lab results narrative: CBC shows an elevated white count of 14.5. H&H of 15.5 and 48. Platelets 181. Electrolytes show a gap of 5 BUN and creatinine 12 and 1.2. Glucose 154. Normal liver enzymes except for total bilirubin 1.2. Urinalysis shows no occult blood. Labs: Laboratory Results - last 24 hr 02/02/23 02/02/23 11:00 12:30 WBC 14.5 H RBC 5.41 H Hgb 15.5 H Hct 48.5 H MCV 89.6 MCH 28.7 MCHC 32.0 RDW Std Deviation 44.4 H RDW Coeff of Abundio 13.6 Plt Count 181 MPV 10.4 Immature Gran % (Auto) 0.400 Neut % (Auto) 83.3 H Lymph % (Auto) 7.1 L [place] % (Auto) 8.6 Eos % (Auto) 0.1 Baso % (Auto) 0.5 Absolute Neuts (auto) 12.1 H Absolute Lymphs (auto) 1.02 Nucleated RBC % 0 Sodium 138 Potassium 3.9 Chloride 104 Carbon Dioxide 29.0 Anion Gap 5 BUN 12 Creatinine 1.21 H Estim Creat Clear Calc 30.16 Est GFR (MDRD) Af Amer 55 L Est GFR (MDRD) Non-Af 45 L BUN/Creatinine Ratio 9.9 L Glucose 154 H Calcium 9.3 Total Bilirubin 1.20 H AST 17 ALT 21 Alkaline Phosphatase 76 Total Protein 7.7 Albumin 3.6 Globulin 4.1 Albumin/Globulin Ratio 0.9 Urine Color Yellow Urine Clarity Sl. Cloudy Urine pH 7.0 Ur Specific [place] 1.005 Urine Protein 30 H Urine Glucose (UA) Normal Urine Ketones Negative Urine Occult Blood 50 H Urine Nitrite Negative Urine Bilirubin Negative Urine Urobilinogen Normal Ur Leukocyte Esterase 100 H Urine RBC 0-5 SEEN Urine WBC 10-25 SEEN Ur Squamous Epith Cells 0-5 SEEN Urine Bacteria 0 SEEN Urine Mucus 0 SEEN Radiography Diagnostic Testing: Clinical Impression(s) from Imaging Studies Abdomen/Pelvis CT 02/02/23 10:44 IMPRESSION: 9 mm calculus in the left renal pelvis causing a mild degree of left hydronephrosis and left perinephric stranding. Right renal cysts. Status post cholecystectomy. Fatty infiltration of the liver. Electronically Signed: Petar Yoon MD at 12:06 EST , Discharge Plan Triage Chief Complaint: Abd Pain ED Provider: Jered Bennett Dx/Rx/DC Orders Clinical Impression: Acute left flank pain, Intractable abdominal pain, Obstruction of left ureteropelvic junction (UPJ) due to stone, Acute UTI Prescriptions: No Action multivitamin [Multiple Vitamins] tablet 1 tab PO DAILY ascorbic acid (vitamin C) [Vitamin C] 500 mg Tablet Extended Release 500 mg PO DAILY cholecalciferol (vitamin D3) [Vitamin D3] 25 mcg (1,000 unit) Capsule 25 mcg PO DAILY Primary Care Provider: Chauncey Lu Referrals: Chauncey Lu, [Primary Care Provider] - Disposition Disposition: Acute Care Hospital [facility]
[2023-02-02 11:09] LABS: Absolute Lymphocyte Count 1.02 X10^3/uL (0.83-4.51); Absolute Neutrophil Count 12.1 X10^3/uL (2.0-7.7); Basophil# 0.07 X10^3/uL; Basophil% 0.5 % (0-1); Eosinophil# 0.01 X10^3/uL; Eosinophils% 0.1 % (0-5); Hematocrit 48.5 % (37-47); Hemoglobin 15.5 g/dL (12.0-15.0); Lymphocyte # 1.02 X10^3/ul (0.83-4.51); Lymphocyte % 7.1 % (19-41); Mean Corpuscular Hgb 28.7 pg (27.0-32.0); Mean Corpuscular Volume 89.6 fL (81-99); Mean Platelet Vol. 10.4 fl (6.2-12.0); Monocyte# 1.24 X10^3/uL; Monocyte% 8.6 % (0-10); NRBC Flagged by Analyzer 0 % (0-5); Neutrophil # 12.06 X10^3/uL (2.7-7.7); Neutrophil % 83.3 % (47-70); Platelet Count 181 K/mm3 (150-450); RBC Distribution Width CV 13.6 % (11.6-14.6); RBC Distribution Width SD 44.4 fl (35.1-43.9); Red Blood Count 5.41 M/mm3 (4.2-5.4); White Blood Count 14.5 K/mm3 (4.4-11.0)
[2023-02-02] MEDS: 0.9% Normal Saline (1000mL) 1,000 ML 1000 ML IV (11:22)
[2023-02-02 11:26] LABS: ALB/GLOB Ratio 0.9 RATIO (0.9-2.4); AST(SGOT) 17 U/L (15-37); Alanine Aminotransfer ALT/SGPT 21 U/L (13-56); Albumin, Serum 3.6 g/dL (3.2-5.0); Alkaline Phosphatase 76 U/L (45-117); Anion Gap 5 (5-15); BUN 12 mg/dL (7-18); BUN/Creat Ratio 9.9 RATIO (10-20); Calcium,Total 9.3 mg/dL (8.5-10.1); Chloride 104 mmol/L (98-107); Creatinine, Serum 1.21 mg/dL (0.55-1.02); EST Glomerular Filtration Rate 45 mL/min (>60); Est Glom Filt Rate - Afr Amer 55 mL/min (>60); Estimated Creatinine Clearance 30.16 ml/min; Globulin 4.1 g/dL (2.2-4.2); Glucose 154 mg/dL (74-106); Potassium 3.9 mmol/L (3.5-5.1); Protein, Total 7.7 g/dL (6.4-8.2); Sodium Level 138 mmol/L (136-145)
[2023-02-02] MEDS: Ondansetron 4 MG/2 ML Vial IV (12:30)
[2023-02-02] MEDS: Morphine 4 MG/ML Syringe IV (12:30)
[2023-02-02 12:36] LABS: Bacteria 0 SEEN /hpf (None Seen); Mucous, Urine 0 SEEN /hpf (<or=2+)
[2023-02-02 12:41] LABS: Color, Urine Yellow (Yellow); Glucose, Dipstick Normal (Normal); Ketone-Dipstick Negative (Negative); Leukocyte Esterase-Dipstick 100 /ul (Negative); Nitrite-Dipstick Negative (Negative); Occult Blood-Urine 50 /ul (Negative); Protein-Dipstick 30 mg/dl (Negative); Specific Gravity, Urine 1.005 (1.002-1.030); Urine Bilirubin Dipstick Negative (Negative); Urine Clarity Sl. Cloudy (Clear); Urine Urobilinogen Normal (Normal)
[2023-02-02 12:56] LABS: Red Blood Cells-Urine 0-5 SEEN /hpf (0-5); Squamous Epithelial Cells - UA 0-5 SEEN /hpf (5-10); White Blood Cells 10-25 SEEN /hpf (0-5)
[2023-02-02] MEDS: morphine 8 MG/ML Syringe 6 MG IV (13:33)
[2023-02-02] MEDS: Ceftriaxone 1 GM/50 ML BAG IV ×2 (14:04→22:04)
--- NOTE | 2023-02-02 14:41 | HP.PCM_ITS ---
HPI - General General Date of Admission: 02/02/23 Date of Service: 02/02/23 Chief Complaint: Left kidney stone UPJ HPI Narrative MACEY WISE, is a 82 F who presents to the emergency room with severe left flank pain left hydronephrosis obstructing stone in the proximal left ureter plan to take the patient to surgery today she was admitted from the emergency room for cystoscopy left stent placement, and left extracorporeal shockwave lit hotripsy [facility] Medical History Acute gastritis without hemorrhage Alcohol use Allergic rhinitis Anemia Ataxia Balance problem Community acquired pneumonia Diaphragmatic hernia without mention of obstruction or gangrene Diverticulitis of colon Encephalopathy Esophageal dysphagia Esophagitis GERD (gastroesophageal reflux disease) History of echocardiogram History of edema HLD (hyperlipidemia) Hx of colonic polyps Major depressive disorder, single episode Mediastinal lymphadenopathy Non-smoker Pneumonia Shortness of breath Shortness of breath on exertion Wears glasses Home Medications multivitamin (Multiple Vitamins tablet) 1 tab PO DAILY 01/16/18 [History Last Taken Unknown] ascorbic acid (vitamin C) 500 mg tablet,extended release (Vitamin C ER) 500 mg PO DAILY 08/26/21 [History Last Taken Unknown] cholecalciferol (vitamin D3) 25 mcg (1,000 unit) capsule (Vitamin D3) 25 mcg PO DAILY 08/26/21 [History Last Taken Unknown] Allergy/AdvReac Type Severity Reaction Status Date / Time naproxen [From Aleve] Allergy Severe Anaphylaxis Verified 02/02/23 10:03 Surgical History Hx of cholecystectomy Hx of colonoscopy Social History household members: spouse Smoking Status: Never smoker alcohol intake: never substance use type: does not use Vital Signs Vital Signs Vital Signs: 02/02/23 10:04 02/02/23 14:05 Temperature 98.1 F 98.9 F Temperature Source Temporal Pulse Rate 111 H 103 H Respiratory Rate 14 20 H Blood Pressure 165/87 H 126/68 H Blood Pressure Mean 113 87 Pulse Ox 97 90 Oxygen Delivery Method Room Air Weight Weight: 67 kg Body Mass Index (BMI) 26.2 Results Lab / Micro Data 02/02/23 11:00 02/02/23 11:00 Labs: Laboratory Results - last 24 hr 02/02/23 11:00: WBC 14.5 H, RBC 5.41 H, Hgb 15.5 H, Hct 48.5 H, MCV 89.6, MCH 28.7, MCHC 32.0, RDW Std Deviation 44.4 H, RDW Coeff of Abundio 13.6, Plt Count 181, MPV 10.4, Immature Gran % (Auto) 0.400, Neut % (Auto) 83.3 H, Lymph % (Auto) 7.1 L, [place] % (Auto) 8.6, Eos % (Auto) 0.1, Baso % (Auto) 0.5, Absolute Neuts (auto) 12.1 H, Absolute Lymphs (auto) 1.02, Nucleated RBC % 0, Sodium 138, Potassium 3.9, Chloride 104, Carbon Dioxide 29.0, Anion Gap 5, BUN 12, Creatinine 1.21 H, Estim Creat Clear Calc 30.16, Est GFR (MDRD) Af Amer 55 L, Est GFR (MDRD) Non-Af 45 L, BUN/Creatinine Ratio 9.9 L, Glucose 154 H, Calcium 9.3, Total Bilirubin 1.20 H, AST 17, ALT 21, Alkaline Phosphatase 76, Total Protein 7.7, Albumin 3.6, Globulin 4.1, Albumin/Globulin Ratio 0.9 02/02/23 12:30: Urine Color Yellow, Urine Clarity Sl. Cloudy, Urine pH 7.0, Ur Specific [place] 1.005, Urine Protein 30 H, Urine Glucose (UA) Normal, Urine Ketones Negative, Urine Occult Blood 50 H, Urine Nitrite Negative, Urine Bilirubin Negative, Urine Urobilinogen Normal, Ur Leukocyte Esterase 100 H, Urine RBC 0-5 SEEN, Urine WBC 10-25 SEEN, Ur Squamous Epith Cells 0-5 SEEN, Urine Bacteria 0 SEEN, Urine Mucus 0 SEEN Imagaing Radiology Impression Abdomen/Pelvis CT 02/02/23 10:44 IMPRESSION: 9 mm calculus in the left renal pelvis causing a mild degree of left hydronephrosis and left perinephric stranding. Right renal cysts. Status post cholecystectomy. Fatty infiltration of the liver. Electronically Signed: Petar Yoon MD at 12:06 EST ,
--- NOTE | 2023-02-02 14:41 | ED.RN ---
spoke with to inform to go to OR waiting room
--- NOTE | 2023-02-02 16:20 | OP.PCM_ITS ---
Report of Operation Date of Procedure: 02/02/23 Pre-Operative Diagnosis: left obstructing kidney stone possible infection sepsis Post-Operative Diagnosis: Same Surgery/Procedure Performed:: Cystoscopy left retrograde pyelogram left stent placement Description of Surgical Findings:: Patient was taken back to the operating room after induction of general anesthesia, the patient was placed in dorsolithotomy position. The urethra and genitals were prepped and draped in usual sterile fashion. Using a 21 Ecuadorean rigid cystourethroscope the entire length of the urethra was normal then went into the bladder. Identified the trigone the left and right ureteral orifice. I then cannulated the Left ureteral orifice and advanced a wire up into the kidney. I then backloaded a 5 Ecuadorean open ended catheter over the wire and injected contrast to delineate the anatomy. After the retrograde was performed I then used fluoroscopic images and guidance to advanced a wire up into the kidney and over the 0.038 glidewire I advanced a 6 Ecuadorean by 26 cm double pigtail stent. I then pulled the 0.038 Glidewire off and the stent coiled in the kidney bladder good position. The bladder was then drained. We confirmed the position of the stent by fluoroscopy. Patient anesthetic was reversed and was taken back to the PACU in good condition. Surgeon: Mo Vides Type of Anesthesia: MAC and Topical Anesth Drains: left stent Estimated Blood Loss (mL): 0 Admit VTE Documentation VTE Present on Admission: No VTE Mechan Device Prophylaxis: SCD's VTE Pharm Prophylaxis ordered?: No
[2023-02-02] MEDS: Lidocaine Jelly 2% 20 ML Syringe (URO-JET) 1 APPLIC (16:31)
[2023-02-02] MEDS: 0.9% Normal Saline (1000mL) 1,000 ML 100 ML IV (18:17)
--- NOTE | 2023-02-02 19:13 | CON.PCM.HO_ITS ---
Assessment & Plan Assessment/Plan (1) Obstruction of left ureteropelvic junction (UPJ) due to stone: PLAN: Plan Patient is an 82-year-old female who presented to [facility] ED on 02/02/2023 with left-sided abdominal and flank pain. Found on CT scan to have a 9 mm calculus in the left renal pelvis with mild degree of left hydronephrosis and left perinephric stranding. Urology primary patient with Dr. Vides. S/p cystoscopy with left ureteral stent placement on afternoon of 02/02. Medicine consulted postoperatively for medical management. 1. Left obstructing kidney stone, concern for UTI S/p cystoscopy with left ureteral stent placement on 02/[address] Vides. Patient tolerated procedure well, no immediate postoperative complications. Patient seen at bedside on the floor shortly after her procedure. Resting comfortably in bed, minimal left-sided back or flank pain, no fevers or chills, hemodynamically stable. WBC count 14.5, mildly hypertensive and tachycardic, afebrile on admission. UA showed 100 leukocyte esterase, negative nitrates, 10- 25 WBCs, 0 bacteria. ? Urology primary patient. Initiated on ceftriaxone for on admission for presumed UTI, okay to continue for now. Blood cultures, urine culture pending. Tylenol as needed for pain control. 2. MICHAEL Creatinine 1.21, BUN 12 on admit. Baseline creatinine appears to be around 0.7- 0.8. Suspect prerenal in setting of kidney stone ? UTI as noted above. S/p 2 L normal saline on 02/02. ? Monitor BMP daily. Monitor urine output. Encouraged p.o. intake, could consider further IV fluids as needed. DVT prophylaxis: Heparin subcu CODE STATUS: Full code, unverified Expected disposition: Home, TBD Total clinical time spent by myself addressing the patient's medical issues, reviewing all the data, and collaborating with patient's care team: 35 minutes. HPI Consult Data Date of Consult: 02/02/23 HPI Narrative Reason for Consultation: Postoperative medical management HPI Narrative: MACEY WISE, is a 82 F who presented to [facility] ED on 02/02/2023 with left-sided abdominal and flank pain. Found on CT scan to have a 9 mm calculus in the left renal pelvis with mild degree of left hydronephrosis and left perinephric stranding. Urology primary patient with Dr. Vides. S/p cystoscopy with left ureteral stent placement on afternoon of 02/02. Medicine consulted postoperatively for medical management. Patient seen at bedside on the floor shortly after returning from her operation this afternoon. Patient was laying comfortably in bed, conversing normally, no acute distress. She was satting in the mid 90s on 3 L nasal cannula, no increased work of breathing noted. Patient appeared somewhat fatigued but not drowsy at all postoperatively. Patient states that her left abdominal and flank pain is much improved from this morning when she came in. She has not tried to get out of bed yet after operation. Her main complaint is that her mouth feels dry and she would like some water to drink. She denies any fevers or chills, chest pain, shortness of breath. Patient has fairly minimal past medical histor y, only takes vitamins at home. Lives at home and has been functional around the home to this point. No other acute concerns at this time. [facility] Medical History Acute gastritis without hemorrhage Alcohol use Allergic rhinitis Anemia Ataxia Balance problem Community acquired pneumonia Diaphragmatic hernia without mention of obstruction or gangrene Diverticulitis of colon Encephalopathy Esophageal dysphagia Esophagitis GERD (gastroesophageal reflux disease) History of echocardiogram History of edema HLD (hyperlipidemia) Hx of colonic polyps Major depressive disorder, single episode Mediastinal lymphadenopathy Non-smoker Pneumonia Shortness of breath Shortness of breath on exertion Wears glasses Home Medications multivitamin (Multiple Vitamins tablet) 1 tab PO DAILY 01/16/18 [History Last Taken Unknown] ascorbic acid (vitamin C) 500 mg tablet,extended release (Vitamin C ER) 500 mg PO DAILY 08/26/21 [History Last Taken Unknown] cholecalciferol (vitamin D3) 25 mcg (1,000 unit) capsule (Vitamin D3) 25 mcg PO DAILY 08/26/21 [History Last Taken Unknown] Allergy/AdvReac Type Severity Reaction Status Date / Time naproxen [From Aleve] Allergy Severe Anaphylaxis Verified 02/02/23 10:03 Surgical History Hx of cholecystectomy Hx of colonoscopy Social History household members: spouse Smoking Status: Never smoker alcohol intake: never substance use type: does not use ROS Constitutional Constitutional: Denies change in weight, chills, fatigue, fever(s) or weakness Eyes Eyes: Denies change in vision Cardiovascular Cardiovascular: Denies chest pain Respiratory/Chest Respiratory/Chest: Denies cough or shortness of breath at rest Gastrointestinal Gastrointestinal: Denies abdominal pain, constipation, diarrhea, nausea or vomiting Genitourinary Genitourinary: Denies difficulty urinating, dysuria, hematuria or urinary urgency Musculoskeletal Musculoskeletal: Denies arthralgias or back pain Neurologic Neurologic: Denies dizziness, focal weakness, headache(s), numbness or paresthesias Physical Exam Const alert, oriented x3, no apparent distress, average body habitus, healthy appearing and well nourished Constitutional Narrative: Pleasant elderly female, laying comfortably in bed, conversing normally, no acute distress. Mildly fatigued appearing but no drowsiness postoperatively. General Appearance: cooperative, comfortable, well kempt and well developed HEENT normocephalic, head/scalp atraumatic, hearing grossly normal bilaterally, nasal mucous membranes and turbinates normal and moist oral mucous membranes Eyes PERRL, EOMs intact bilaterally and conjunctivae normal Neck full ROM, no lymphadenopathy and supple Lymph Lymphatic: no lymphadenopathy noted Chest inspection of chest normal Resp Resp Narrative: Good breath sounds bilaterally, no wheezing or crackles noted. Satting in mid 90s on 3 L nasal cannula, no increased work of breathing noted. Cardio regular rate, regular rhythm, no murmurs and peripheral pulses 2+ throughout GI normal to inspection, nondistended, normoactive bowel sounds, soft to palpation, non-tender and non-distended no CVA tenderness Narrative: Notably no catheter or pure wick in place at this time. Bladder / Kidney Exam: bladder normal to palpation Back/Spine normal ROM Extremity normal to inspection, full ROM and no pedal edema Skin no rashes or lesions noted Neuro moves all extremities and no focal motor deficits Speech: speech normal Psych mental status grossly normal Lab / Micro Data 02/02/23 11:00 02/02/23 11:00 Labs: Laboratory Results - last 24 hr 02/02/23 11:00: WBC 14.5 H, RBC 5.41 H, Hgb 15.5 H, Hct 48.5 H, MCV 89.6, MCH 28.7, MCHC 32.0, RDW Std Deviation 44.4 H, RDW Coeff of Abundio 13.6, Plt Count 181, MPV 10.4, Immature Gran % (Auto) 0.400, Neut % (Auto) 83.3 H, Lymph % (Auto) 7.1 L, [place] % (Auto) 8.6, Eos % (Auto) 0.1, Baso % (Auto) 0.5, Absolute Neuts (auto) 12.1 H, Absolute Lymphs (auto) 1.02, Nucleated RBC % 0, Sodium 138, Potassium 3.9, Chloride 104, Carbon Dioxide 29.0, Anion Gap 5, BUN 12, Creatinine 1.21 H, Estim Creat Clear Calc 30.16, Est GFR (MDRD) Af Amer 55 L, Est GFR (MDRD) Non-Af 45 L, BUN/Creatinine Ratio 9.9 L, Glucose 154 H, Calcium 9.3, Total Bilirubin 1.20 H, AST 17, ALT 21, Alkaline Phosphatase 76, Total Protein 7.7, Albumin 3.6, Globulin 4.1, Albumin/Globulin Ratio 0.9 02/02/23 12:30: Urine Color Yellow, Urine Clarity Sl. Cloudy, Urine pH 7.0, Ur Specific [place] 1.005, Urine Protein 30 H, Urine Glucose (UA) Normal, Urine Ketones Negative, Urine Occult Blood 50 H, Urine Nitrite Negative, Urine Bilirubin Negative, Urine Urobilinogen Normal, Ur Leukocyte Esterase 100 H, Urine RBC 0-5 SEEN, Urine WBC 10-25 SEEN, Ur Squamous Epith Cells 0-5 SEEN, Ur ine Bacteria 0 SEEN, Urine Mucus 0 SEEN Imagaing Radiology Impression Abdomen/Pelvis CT 02/02/23 10:44 IMPRESSION: 9 mm calculus in the left renal pelvis causing a mild degree of left hydronephrosis and left perinephric stranding. Right renal cysts. Status post cholecystectomy. Fatty infiltration of the liver. Electronically Signed: Petar Yoon MD at 12:06 EST , Charges/Coding Visit Charges Inpatient E&M: 04624 Subs Hosp L2
[2023-02-02 19:33] LABS: Lactic Acid 4.3 mmol/L (0.4-1.9)
[2023-02-02] MEDS: Heparin Injection (Vial) 5,000 UNIT/ML VIAL 5000 UNIT SC (22:05)
[2023-02-02] MEDS: Docusate Sodium 100 MG Capsule 200 MG PO (22:05)
[2023-02-02] MEDS: Acetaminophen 325 MG Tablet PO (22:11)
[2023-02-02 23:04] LABS: Reflex Lactate? Y
[2023-02-03] VITALS (22 sets, daily range): BP systolic 106–157; BP diastolic 42–77; PULSE 104–128; RESP 12–38; TEMP 36.8–39.2; O2SAT 90–98
[2023-02-03 00:09] LABS: Lactic Acid 2.2 mmol/L (0.4-1.9)
[2023-02-03] MEDS: 0.9% Normal Saline (1000mL) 1,000 ML 100 ML IV (04:31)
[2023-02-03 07:45] LABS: Hemoglobin 12.9 g/dL (12.0-15.0); Mean Corpuscular Volume 96.6 fL (81-99); Mean Platelet Vol. 10.7 fl (6.2-12.0); Platelet Count 105 K/mm3 (150-450); RBC Distribution Width CV 14.4 % (11.6-14.6); RBC Distribution Width SD 51.2 fl (35.1-43.9); Red Blood Count 4.45 M/mm3 (4.2-5.4); White Blood Count 15.8 K/mm3 (4.4-11.0)
[2023-02-03] MEDS: Acetaminophen 325 MG Tablet PO (08:47)
[2023-02-03] MEDS: Docusate Sodium 100 MG Capsule 200 MG PO (08:47)
[2023-02-03] MEDS: Ceftriaxone 1 GM/50 ML BAG IV (08:47)
[2023-02-03] MEDS: Heparin Injection (Vial) 5,000 UNIT/ML VIAL 5000 UNIT SC (08:47)
--- NOTE | 2023-02-03 09:19 | PN.HOSP_ITS ---
Reason for Visit Reason for Visit: Diagnoses Calculus of ureter (02/02/23) Subjective Subjective Reports she gets some discomfort in her abdomen when she urinates but is not having it presently, does not feel short of breath and has not had a specific cough low O2 89-90 on room air at rest at this time. Had no other focal complaints Objective Data Objective Data Vital Signs: Vital Signs Temp Pulse Resp BP Pulse Ox O2 Del Method O2 Flow Rate 98.5 F 111 H 18 129/56 H 96 Nasal Cannula 2 02/03/23 08:36 02/03/23 08:36 02/03/23 08:36 02/03/23 08:36 02/03/23 08:36 02/03/23 08:36 02/03/23 08:36 Oxygen Flow Rate (L/min) 2 Oxygen Delivery Method Nasal Cannula Weight: 67 kg Body Mass Index (BMI) 26.2 Intake & Output: Intake and Output for Last 24 Hours 02/01/23 02/02/23 02/03/23 23:59 23:59 23:59 Intake Total 1100 / 1100 1426.67 / 1426.67 Balance 1100 / 1100 1426.67 / 1426.67 Lab / Micro Data 02/03/23 07:28 02/03/23 07:28 Labs: Laboratory Results - last 24 hr 02/02/23 11:00: WBC 14.5 H, RBC 5.41 H, Hgb 15.5 H, Hct 48.5 H, MCV 89.6, MCH 28.7, MCHC 32.0, RDW Std Deviation 44.4 H, RDW Coeff of [place]und[place] 13.6, Plt Count 181, MPV 10.4, Immature Gran % (Auto) 0.400, Neut % (Auto) 83.3 H, Lymph % (Auto) 7.1 L, Vance % (Auto) 8.6, Eos % (Auto) 0.1, Baso % (Auto) 0.5, Absolute Neuts (auto) 12.1 H, Absolute Lymphs (auto) 1.02, Nucleated RBC % 0, Sodium 138, Potassium 3.9, Chloride 104, Carbon Dioxide 29.0, Anion Gap 5, BUN 12, Creatinine 1.21 H, Estim Creat Clear Calc 30.16, Est GFR (MDRD) Af Amer 55 L, Est GFR (MDRD) Non-Af 45 L, BUN/Creatinine Ratio 9.9 L, Glucose 154 H, Calcium 9.3, Total Bilirubin 1.20 H, AST 17, ALT 21, Alkaline Phosphatase 76, Total Protein 7.7, Albumin 3.6, Globulin 4.1, Albumin/Globulin Ratio 0.9 02/02/23 12:30: Urine Color Yellow, Urine Clarity Sl. Cloudy, Urine pH 7.0, Ur Specific [place] 1.005, Urine Protein 30 H, Urine Glucose (UA) Normal, Urine Ketones Negative, Urine Occult Blood 50 H, Urine Nitrite Negative, Urine Bilirubin Negative, Urine Urobilinogen Normal, Ur Leukocyte Esterase 100 H, Urine RBC 0-5 SEEN, Urine WBC 10-25 SEEN, Ur Squamous Epith Cells 0-5 SEEN, Urine Bacteria 0 SEEN, Urine Mucus 0 SEEN 02/02/23 18:53: Lactic Acid 4.3 H* 02/02/23 23:32: Lactic Acid 2.2 H* 02/03/23 07:28: WBC 15.8 H, RBC 4.45, Hgb 12.9, Hct 43.0, MCV 96.6 D, MCH 29.0, MCHC 30.0 L D, RDW Std Deviation 51.2 H, RDW Coeff of Abundio 14.4, Plt Count 105 L, MPV 10.7 Radiography Diagnostic Testing: Radiology Impression Abdomen/Pelvis CT 02/02/23 10:44 IMPRESSION: 9 mm calculus in the left renal pelvis causing a mild degree of left hydronephrosis and left perinephric stranding. Right renal cysts. Status post cholecystectomy. Fatty infiltration of the liver. Electronically Signed: Petar Yoon MD at 12:06 EST , Physical Exam Narrative General: Alert, oriented, no apparent distress HEENT: Atraumatic, normocephalic Eyes: Anicteric, normal conjunctiva, extraocular movements grossly intact Neck: Supple Respiratory: Some crackles at the left base, normal respiratory effort Cardiovascular: Mildly tachycardic with regular rhythm GI: Soft, nontender, nondistended Extremities: No edema Musculoskeletal: Moving all extremities Neuro: No overt focal neurological deficits Skin: No rashes appreciated Psych: Cooperative Assessment & Plan Assessment/Plan (1) Obstruction of left ureteropelvic junction (UPJ) due to stone: PLAN: Plan Patient is an 82-year-old female who presented to [facility] ED on 02/02/2023 with left-sided abdominal and flank pain. Found on CT scan to have a 9 mm calculus in the left renal pelvis with mild degree of left hydronephrosis and left perinephric stranding. Urology primary patient with Dr. Vides. S/p cystoscopy with left ureteral stent placement on afternoon of 02/02. Medicine consulted postoperatively for medical management. #Left obstructing kidney stone, concern for UTI S/p cystoscopy with left ureteral stent placement on 02/[address] Vides. Patient tolerated procedure well, no immediate postoperative complications. Patient seen at bedside on the floor shortly after her procedure. Resting comfortably in bed, minimal left-sided back or flank pain, no fevers or chills, hemodynamically stable. WBC count 14.5, mildly hypertensive and tachycardic, afebrile on admission. UA showed 100 leukocyte esterase, negative nitrates, 10- 25 WBCs, 0 bacteria. ? Urology primary patient. Initiated on ceftriaxone for on admission for presumed UTI, okay to continue for now. Blood cultures, urine culture pending. Tylenol as needed for pain control. -02/03: UA not convincing for UTI but patient did have signs and symptoms consistent with infection on admission, is on Rocephin, awaiting cultures. Lactic acid did downtrend discussed plan with urology #MICHAEL Creatinine 1.21, BUN 12 on admit. Baseline creatinine appears to be around 0.7-0.8. Suspect prerenal in setting of kidney stone ? UTI as noted above. S/p 2 L normal saline on 02/02. ? Monitor BMP daily. Monitor urine output. Encouraged p.o. intake, could consider further IV fluids as needed. -02/03: Kidney function improved slightly from yesterday, IV fluids to be held #Tachycardia and suboptimal O2 -Was 89 to 90% on room air and was placed on several liters of O2, is on fluids, slight crackles but only appreciated at left base and does not appear fluid overloaded, if not improving will need further work-up -Patient with sinus tach, may be due to underlying infection, monitor cultures and continue antibiotics, can always consider broadening spectrum until culture results are back, status post IV fluids DVT prophylaxis: Heparin subcu CODE STATUS: Full code, unverified Expected disposition: Home, TBD Total clinical time spent by myself addressing the patient's medical issues, reviewing all the data, and collaborating with patient's care team: 35 minutes. Charges/Coding Visit Charges Inpatient E&M: 04201 Subs Hosp L2
[2023-02-03 09:32] LABS: Anion Gap 10 (5-15); BUN 19 mg/dL (7-18); Calcium,Total 7.6 mg/dL (8.5-10.1); Chloride 110 mmol/L (98-107); Creatinine, Serum 1.12 mg/dL (0.55-1.02); EST Glomerular Filtration Rate 50 mL/min (>60); Est Glom Filt Rate - Afr Amer 60 mL/min (>60); Estimated Creatinine Clearance 32.59 ml/min; Glucose 109 mg/dL (74-106); Potassium 3.9 mmol/L (3.5-5.1); Sodium Level 141 mmol/L (136-145)
--- NOTE | 2023-02-03 09:46 | PN.URO_ITS ---
Subjective Subjective 82-year-old female admitted for a left obstructing kidney stone she clinically appeared septic yesterday she had a low blood pressure tachycardic she did receive a lot of morphine so she was a left lethargic in the preoperative area we ended up just placing a stent on the left side to alleviate the obstruction she is on broad-spectrum antibiotics clinically this morning's looks much better she is more alert awake, responding to questions normally Objective Data Objective Data Vital Signs: Vital Signs Temp Pulse Resp BP Pulse Ox O2 Del Method O2 Flow Rate 98.5 F 111 H 18 129/56 H 96 Nasal Cannula 2 02/03/23 08:36 02/03/23 08:36 02/03/23 08:36 02/03/23 08:36 02/03/23 08:36 02/03/23 08:36 02/03/23 08:36 Oxygen Flow Rate (L/min) 2 Oxygen Delivery Method Nasal Cannula Weight: 67 kg Body Mass Index (BMI) 26.2 Intake & Output: Intake and Output for Last 24 Hours 02/01/23 02/02/23 02/03/23 23:59 23:59 23:59 Intake Total 1100 / 1100 1426.67 / 1426.67 Balance 1100 / 1100 1426.67 / 1426.67 Lab / Micro Data 02/03/23 07:28 02/03/23 07:28 Labs: Laboratory Results - last 24 hr 02/02/23 11:00: WBC 14.5 H, RBC 5.41 H, Hgb 15.5 H, Hct 48.5 H, MCV 89.6, MCH 28.7, MCHC 32.0, RDW Std Deviation 44.4 H, RDW Coeff of Abundio 13.6, Plt Count 181, MPV 10.4, Immature Gran % (Auto) 0.400, Neut % (Auto) 83.3 H, Lymph % (Auto) 7.1 L, [place]ner % (Auto) 8.6, Eos % (Auto) 0.1, Baso % (Auto) 0.5, Absolute Neuts (auto) 12.1 H, Absolute Lymphs (auto) 1.02, Nucleated RBC % 0, Sodium 138, Potassium 3.9, Chloride 104, Carbon Dioxide 29.0, Anion Gap 5, BUN 12, Creatinine 1.21 H, Estim Creat Clear Calc 30.16, Est GFR (MDRD) Af Amer 55 L, Est GFR (MDRD) Non-Af 45 L, BUN/Creatinine Ratio 9.9 L, Glucose 154 H, Calcium 9.3, Total Bilirubin 1.20 H, AST 17, ALT 21, Alkaline Phosphatase 76, Total Protein 7.7, Albumin 3.6, Globulin 4.1, Albumin/Globulin Ratio 0.9 02/02/23 12:30: Urine Color Yellow, Urine Clarity Sl. Cloudy, Urine pH 7.0, Ur Specific [place] 1.005, Urine Protein 30 H, Urine Glucose (UA) Normal, Urine Ketones Negative, Urine Occult Blood 50 H, Urine Nitrite Negative, Urine Bilirubin Negative, Urine Urobilinogen Normal, Ur Leukocyte Esterase 100 H, Urine RBC 0-5 SEEN, Urine WBC 10-25 SEEN, Ur Squamous Epith Cells 0-5 SEEN, Urine Bacteria 0 SEEN, Urine Mucus 0 SEEN 02/02/23 18:53: Lactic Acid 4.3 H* 02/02/23 23:32: Lactic Acid 2.2 H* 02/03/23 07:28: WBC 15.8 H, RBC 4.45, Hgb 12.9, Hct 43.0, MCV 96.6 D, MCH 29.0, MCHC 30.0 L D, RDW Std Deviation 51.2 H, RDW Coeff of Abundio 14.4, Plt Count 105 L, MPV 10.7, Sodium 141, Potassium 3.9, Chloride 110 H, Carbon Dioxide 21.0, Anion Gap 10, BUN 19 H, Creatinine 1.12 H, Estim Creat Clear Calc 32.59, Est GFR (MDRD) Af Amer 60, Est GFR (MDRD) Non-Af 50 L, BUN/Creatinine Ratio 17.0, Glucose 109 H, Calcium 7.6 L Radiography Diagnostic Testing: Radiology Impression Abdomen/Pelvis CT 02/02/23 10:44 IMPRESSION: 9 mm calculus in the left renal pelvis causing a mild degree of left hydronephrosis and left perinephric stranding. Right renal cysts. Status post cholecystectomy. Fatty infiltration of the liver. Electronically Signed: Petar Yoon MD at 12:06 EST , Physical Exam Const alert and oriented x3 General Appearance: cooperative HEENT normocephalic, head/scalp atraumatic, EAC's normal and TM's normal bilaterally Eyes PERRL and EOMs intact bilaterally Pupil: sluggish Neck no lymphadenopathy, supple and no JVD General: trachea midline Lymph Lymphatic: no lymphadenopathy noted, lymphedema and lymphadenopathy Resp normal respiratory effort, normal air movement and clear to auscultation bilaterally Cardio regular rate, regular rhythm and peripheral pulses 2+ throughout GI soft to palpation, non-tender and non-distended Extremity normal capillary refill and no clubbing, cyanosis or edema General Extremity: no tenderness to palpation of joints or extremities Skin no rashes or lesions noted General Skin Exam: turgor normal Lesions: no lesions Rashes: no rashes Neuro CN's II-XII intact bilaterally Speech: speech normal Motor Exam: strength 5/5 throughout; Negative for general weakness Psych thought process normal, cooperative and affect normal Appearance: appropriate Assessment & Plan Assessment/Plan (1) Acute UTI: PLAN: Status post stent for obstructing stone in the left proximal ureter, suspected sepsis she had a high lactic acid which is coming down white blood count is still 15,000 creatinine is 1.1 which is good she clinically looks better today blood pressure is better Hep-Lock IV fluids continue broad-spectrum antibiotics await sensitivities of cultures anticipate discharge may be Sunday. (2) Obstruction of left ureteropelvic junction (UPJ) due to stone:
[2023-02-03] MEDS: Phenazopyridine 95 MG Tablet PO (12:00)
--- NOTE | 2023-02-03 14:24 | RAD_ITS ---
INDICATION: respiratory distress EXAMINATION/TECHNIQUE: X-RAY - XR Chest 1 View COMPARISON: CT of the abdomen and pelvis dated February 02, 2023 and chest radiograph dated December 16, 2017 FINDINGS: LINES/DEVICES: None. LUNGS: There is persistent elevation of the right hemidiaphragm. There are left basilar ill-defined opacities. No pneumothorax. MEDIASTINUM AND CARDIOVASCULAR STRUCTURES: Cardiac silhouette not enlarged. Central airways and mediastinal contour are unremarkable. BONES AND SOFT TISSUES: Unremarkable. RAD/Chest 1 View (Portable) IMPRESSION: Left basilar ill-defined opacities may be secondary to atelectasis and/or pneumonia. Electronically Signed: Emma Ibarra MD at 14:55 EST ,
--- NOTE | 2023-02-03 14:44 | PCM.HOSP.N ---
Hospitalist Note Called due to patient being tachypneic and tachycardic, entered orders and presented to bedside. EKG similar to admission EKG, chest x-ray with what seems to be elevated right hemidiaphragm however looking back to 2018 this is elevated as well. Appears to be somewhat congested and ABG reveals pH of 7.48 with a bicarb of 20, PCO2 of 27.3 and PO2 of 68. Patient did spike temp and white count was still up earlier and given that with her tachycardia and tachypnea we will broaden antibiotic spectrum in the event that this is infection related and is not presently being covered, blood cultures are pending, will also give dose of Tylenol. Given po2 is slightly low and patient is tachypneic with concern for some possible fluid overload will place on BiPAP to help with work of breathing and oxygenation, awaiting labs. Suspect patient may need Lasix
[2023-02-03 14:53] LABS: Allen Test Positive; Base Excess -3 mmol/L (-2 to +2); Bicarbonate 20.3 mmol/L (22-26); Blood Gas Specimen Type ART; Mode Not entered; O2 Delivery Device Cannula; PO2 68 mmHG (75-100); SITE L Radial; SO2 95 % (95-99); Total Carbon Dioxide 21 mmol/L; pCO2 27.3 mmHg (35-45); pH 7.48 (7.35-7.45)
[2023-02-03] MEDS: Acetaminophen 325 MG Tablet 650 MG PO ×2 (14:56→22:16)
--- NOTE | 2023-02-03 15:06 | NURSING ---
on BIPAP. pt on step-down monitor at bedside.
[2023-02-03] MEDS: 0.9% Saline Lock 10 ML Syringe IV ×4 (15:30→19:40)
[2023-02-03] MEDS: 0.9% Normal Saline (250mL Bag) 250 ML 15 ML IV (15:30)
[2023-02-03 15:51] LABS: Absolute Lymphocyte Count 0.51 X10^3/uL (0.83-4.51); Absolute Neutrophil Count 11.4 X10^3/uL (2.0-7.7); Basophil# 0.05 X10^3/uL; Basophil% 0.4 % (0-1); Eosinophil# 0.03 X10^3/uL; Eosinophils% 0.2 % (0-5); Hematocrit 39.5 % (37-47); Hemoglobin 12.3 g/dL (12.0-15.0); Lymphocyte # 0.51 X10^3/ul (0.83-4.51); Mean Corp Hgb Conc 31.1 g/dL (32-36); Mean Corpuscular Hgb 28.5 pg (27.0-32.0); Mean Corpuscular Volume 91.6 fL (81-99); Mean Platelet Vol. 10.9 fl (6.2-12.0); Monocyte# 0.63 X10^3/uL; Monocyte% 4.9 % (0-10); NRBC Flagged by Analyzer 0 % (0-5); Neutrophil # 11.44 X10^3/uL (2.7-7.7); Neutrophil % 89.9 % (47-70); POSITIVE COUNT YES; POSITIVE DIFFERENTIAL YES; Platelet Count 95 K/mm3 (150-450); RBC Distribution Width CV 14.1 % (11.6-14.6); RBC Distribution Width SD 48.1 fl (35.1-43.9); Red Blood Count 4.31 M/mm3 (4.2-5.4); White Blood Count 12.7 K/mm3 (4.4-11.0)
[2023-02-03 16:05] LABS: Differential Indicated SCAN CRITERIA MET
[2023-02-03 16:06] LABS: D-Dimer Quantitative (DVT/PE) 3.85 FEU/ug/m (0.27-0.49)
[2023-02-03 16:07] LABS: Lactic Acid 1.5 mmol/L (0.4-1.9)
[2023-02-03 16:16] LABS: Anion Gap 5 (5-15); BUN 26 mg/dL (7-18); Chloride 106 mmol/L (98-107); Creatinine, Serum 1.13 mg/dL (0.55-1.02); EST Glomerular Filtration Rate 49 mL/min (>60); Est Glom Filt Rate - Afr Amer 59 mL/min (>60); Glucose 106 mg/dL (74-106); Potassium 3.7 mmol/L (3.5-5.1); Sodium Level 136 mmol/L (136-145); Troponin-I HS 353 pg/mL (3.0-54.0)
[2023-02-03 16:19] LABS: Differential Comment SCANNED
[2023-02-03] MEDS: Piperacil/Tazobactam 4.5 GM in 0.9% Normal Saline (100mL MB+) 100 ML IV (16:23)
[2023-02-03 16:24] LABS: BNP,B-Type NATRIURETIC PEPTIDE 443.3 pg/mL (0-100)
--- NOTE | 2023-02-03 16:25 | CT_ITS ---
STUDY: CTA CHEST REASON FOR EXAM: Female, 82 years old. concern for PE RADIATION DOSAGE (If Supplied By Facility): CTDIvol = ( 10.74 ) mGy, DLP = ( 515.22 ) mGycm TECHNIQUE: The examination was performed with the intravenous administration of IV 100mL Isovue-370. Post-processing of the angiographic images was performed, with multiplanar reformation and 3D reconstruction. Individualized dose optimization techniques were used for this CT. COMPARISON: CT abdomen and pelvis 02/02/2023. CT chest 02/25/2018. FINDINGS: LUNGS: Elevated right hemidiaphragm is chronic and unchanged. Consolidation right lower lobe and partial right middle lobe is new. Dependent atelectasis in the left lower lobe. Small area of consolidation or atelectasis in the left lung base lingula is unchanged and may be chronic. Bronchial wall thickening bilaterally. PLEURA: Small right pleural effusion. Minimal left pleural effusion. No pneumothorax. PULMONARY VESSELS: No pulmonary emboli identified. MEDIASTINUM: A few mildly enlarged lymph nodes in the mediastinum. HEART: Not enlarged. AORTA/GREAT VESSELS: Thoracic aorta is normal caliber. No aneurysm or dissection. UPPER ABDOMEN: No acute findings. BONES/SOFT TISSUES: No acute findings. Chronic compression fracture of T12. OTHER: None. CT/CTA Chest W/WO Contrast IMPRESSION: No evidence of pulmonary emboli. Right lower lobe and right middle lobe consolidation may be consistent with pneumonia. Small bilateral pleural effusions. Left basilar consolidation or atelectasis. Electronically Signed: Peg Pro MD at 18:21 EST ,
--- NOTE | 2023-02-03 16:29 | ECHOD_ITS ---
Reason For Study: Chest pain Procedure This was a 2D Doppler, Color Flow transthoracic echocardiogram. Exam performed portable in patient room. Left Ventricle Normal LV size. Left ventricular systolic function is normal. The estimated ejection fraction is 55 %. Stage 1 diastolic dysfunction. No regional wall motion abnormalities noted. Right Ventricle Normal RV size. Normal systolic function. Atria Normal left atrium. Normal right atrium. Mitral Valve Normal mitral valve. Tricuspid Valve The tricuspid valve is not well visualized. Mild (1+) tricuspid valve insufficiency. Pulmonary artery systolic pressure is 32 mmHg. Aortic Valve The aortic valve is not well visualized. Pulmonic Valve The pulmonic valve is not well visualized. Great Vessels Normal aortic root. Pericardium/Pleural No pericardial effusion. MMode/2D Measurements & Calculations LVIDd: 4.1 cm IVSd: 0.93 cm Ao root diam: 3.1 cm LVIDs: 2.8 cm LVPWd: 1.1 cm RVDd: 3.0 cm FS: 33.4 % LAV(MOD-bp): 39.9 ml LA A4 area: 17.8 cm2 LA dimension(2D): 3.9 cm LAV(MOD-bp) Indexed: 23.5 ml/m2 LAV(MOD-sp2): 26.1 ml LAV(MOD-sp4): 47.3 ml TAPSE: 1.9 cm RA A4 area: 7.1 cm2 Time Measurements MV dec time: 0.16 sec Doppler Measurements & Calculations MV E max curt: 90.8 cm/sec Lat Peak E' Curt: 6.1 cm/sec Med Peak E' Curt: 5.2 cm/sec MV A max curt: 121.8 cm/sec E/E' lat: 14.9 E/E' med: 17.5 MV E/A: 0.75 MV V2 max: 140.0 cm/sec MV dec slope: 553.2 cm/sec2 Ao V2 max: 155.1 cm/sec MV max P.8 mmHg Ao max P.6 mmHg MV V2 mean: 89.6 cm/sec MV mean P.6 mmHg MV V2 VTI: 35.9 cm LV V1 max: 137.5 cm/sec PA V2 max: 87.5 cm/sec TR max curt: 265.2 cm/sec LV V1 max P.6 mmHg TR max P.1 mmHg ECHO/Echo Complete W/ Contrast Interpretation Summary Normal LV size. Left ventricular systolic function is normal. The estimated ejection fraction is 55 %. Stage 1 diastolic dysfunction. Contrast injection was performed. Ordering Physician: Amelia Vickers Referring Physician: Aly Grossman Performed By: Jenna Koenig RCS
--- NOTE | 2023-02-03 16:30 | CASEMGMT ---
ADA ALMONTE assessment: RN CM to room to meet with patient for initial transition planning/care coordination assessment. Pt resting in bed w/BIPAP in place. @ bedside. ADA ALMONTE introduced self and role at [facility]. Pt's is at bedside during assessment and answers questions for pt at times. Care providers, pharmacy, and demographics verified/updated at this time. PCP: Dr Lu Specialists: states does not currently have specialists. Preferred Pharmacy: [facility] Insurance: [facility] A/B, [employer] Prescription Benefit: yes Living Will/HPOA: has both LW/HPOA and is HPOA LNOK: Christopher Acuña, ; Cedrick Acuña, son Living Arrangements: Pt states she lives with in 1 story home w/basement w/railing and 2 steps to enter home. states pt has no difficulty w/stairs @ her baseline. Pt and share home mgnt tasks. Transportation: Pt and both drive. DME: states they have grab bars/rails in the home and they have a pulse ox. Pt currently on BIPAP. Pt does not wear home O2. CM to follow. HHC/SNF: Pt has been to [facility] TCU in the past. No hx of HHC. does not anticipate need for HHC at discharge. states no concerns with going home at time of discharge and states no further concerns/needs at this time. Advised pt/ to ask for CM if any further questions/concerns/needs arise, voices understanding. CM to follow for home oxygen need and any further discharge planning/needs. Plan: TBD. Follow for possible home O2 or anti-coag if + for PE. Roz PETTY RN, CM
[2023-02-03 16:45] LABS: Partial Thromboplast Time 37.4 Seconds (24.1-36.2)
--- NOTE | 2023-02-03 16:45 | CPS ---
Placed pt on 35% VM for transport to CT Scan. RN will put pt back on BIPAP when pt arrives in PCU 108.
[2023-02-03 18:04] LABS: Troponin-I HS 364 pg/mL (3.0-54.0)
[2023-02-03] MEDS: Heparin Injection (Vial) 5,000 UNIT/ML VIAL 4500 UNIT IV (18:11)
[2023-02-03] MEDS: Vancomycin HCl 1,750 MG in 0.9% Normal Saline (500mL Bag) 500 ML 250 MG IV (18:12)
[2023-02-03] MEDS: HEPARIN/D5w 25,000 UNITS 25,000 UNITS/250 ML IV.SOLN. 10 UNITS CONT INF (18:16)
[2023-02-03] MEDS: Furosemide 20 MG/2 ML VIAL IV (19:40)
[2023-02-03] MEDS: Piperacil/Tazobactam 3.375 GM in 0.9% Normal Saline (50mL MB+) 50 ML IV (21:09)
--- NOTE | 2023-02-03 21:44 | PCM.RX.CS ---
Consult Antibiotic Management Pharmacy has been consulted to manage selected antiobiotic: Vancomycin Type of Intervention Type of Consult: New start Labs Labs: Sodium 136 mmol/L (136-145) 02/03/23 15:27 Potassium 3.7 mmol/L (3.5-5.1) 02/03/23 15:27 Chloride 106 mmol/L (98-107) 02/03/23 15:27 Carbon Dioxide 25.0 mmol/L (21.0-32.0) 02/03/23 15:27 Anion Gap 5 (5-15) 02/03/23 15:27 BUN 26 mg/dL (7-18) H 02/03/23 15:27 Creatinine 1.13 mg/dL (0.55-1.02) H 02/03/23 15:27 Est GFR (MDRD) Af Amer 59 mL/min (>60) L 02/03/23 15:27 Est GFR (MDRD) Non-Af 49 mL/min (>60) L 02/03/23 15:27 BUN/Creatinine Ratio 23.0 RATIO (10-20) H 02/03/23 15:27 Glucose 106 mg/dL (74-106) 02/03/23 15:27 Microbiology Microbiology: Microbiology 02/02/23 12:30 Urine, Clean Catch Urine Culture - Final Mixed Gram Pos & Gram Neg Org Dosing Weight Weight used for dosin kg Estimated Creatinine Clearance Estimated Creatinine Clearance: 36 Pharmacy Plan for Drug Dosing Pharmacy Plan for Drug Dosing: Pharmacy Service will continue to monitor and adjust dosing as required. Follow-Up Labs Follow-Up Labs: [place]: Vancomycin Date/Time Labs Ordered Labs to be done on [date and time ordered]: 02/05 @ 1800
[2023-02-04] VITALS (19 sets, daily range): BP systolic 83–130; BP diastolic 46–63; PULSE 87–112; RESP 20–30; TEMP 36.4–38.2; O2SAT 91–100
[2023-02-04 01:28] LABS: Partial Thromboplast Time > 200.0 Seconds (24.1-36.2)
[2023-02-04] MEDS: Piperacil/Tazobactam 3.375 GM in 0.9% Normal Saline (50mL MB+) 50 ML IV ×3 (05:58→21:34)
[2023-02-04 07:21] LABS: Hematocrit 37.7 % (37-47); Mean Corp Hgb Conc 31.8 g/dL (32-36); Mean Corpuscular Volume 91.1 fL (81-99); Mean Platelet Vol. 11.3 fl (6.2-12.0); POSITIVE COUNT YES; Platelet Count 93 K/mm3 (150-450); RBC Distribution Width CV 14.2 % (11.6-14.6); RBC Distribution Width SD 47.8 fl (35.1-43.9); Red Blood Count 4.14 M/mm3 (4.2-5.4); White Blood Count 12.1 K/mm3 (4.4-11.0)
[2023-02-04] MEDS: Acetaminophen 325 MG Tablet 650 MG PO (08:02)
[2023-02-04 08:06] LABS: Anion Gap 7 (5-15); BUN 21 mg/dL (7-18); BUN/Creat Ratio 19.1 RATIO (10-20); Calcium,Total 7.8 mg/dL (8.5-10.1); Chloride 106 mmol/L (98-107); EST Glomerular Filtration Rate 51 mL/min (>60); Est Glom Filt Rate - Afr Amer 61 mL/min (>60); Estimated Creatinine Clearance 33.18 ml/min; Glucose 94 mg/dL (74-106); Potassium 3.2 mmol/L (3.5-5.1); Sodium Level 136 mmol/L (136-145)
--- NOTE | 2023-02-04 08:07 | PCM.PN.HOSP ---
Reason for Visit Reason for Visit: Diagnoses Calculus of ureter (02/02/23) Urinary tract infection, site not specified (02/02/23) Subjective Subjective Sitting up in chair, feeling much better today, no lightheadedness, no chest pain or shortness of breath today, no abdominal pain Objective Data Objective Data Vital Signs: Vital Signs Temp Pulse Resp BP Pulse Ox O2 Del Method O2 Flow Rate 97.9 F 100 25 H 118/54 L 95 Nasal Cannula 2 02/04/23 06:57 02/04/23 06:57 02/04/23 06:57 02/04/23 06:57 02/04/23 06:57 02/04/23 06:57 02/04/23 06:57 FiO2 35 02/03/23 16:45 Oxygen Flow Rate (L/min) 2 Oxygen Delivery Method Nasal Cannula Weight: 67 kg Body Mass Index (BMI) 26.2 Intake & Output: Intake and Output for Last 24 Hours 02/02/23 02/03/23 02/04/23 23:59 23:59 23:59 Intake Total 1100 / 1100 2195.67 / 2195.67 122.33 / 122.33 Balance 1100 / 1100 2195.67 / 2195.67 122.33 / 122.33 Lab / Micro Data 02/04/23 05:42 02/04/23 05:42 Labs: Laboratory Results - last 24 hr 02/03/23 07:28: Sodium 141, Potassium 3.9, Chloride 110 H, Carbon Dioxide 21.0, Anion Gap 10, BUN 19 H, Creatinine 1.12 H, Estim Creat Clear Calc 32.59, Est GFR (MDRD) Af Amer 60, Est GFR (MDRD) Non-Af 50 L, BUN/Creatinine Ratio 17.0, Glucose 109 H, Calcium 7.6 L 02/03/23 15:27: WBC 12.7 H, RBC 4.31, Hgb 12.3, Hct 39.5, MCV 91.6 D, MCH 28.5, MCHC 31.1 L, RDW Std Deviation 48.1 H, RDW Coeff of Abundio 14.1, Plt Count 95 L, MPV 10.9, Immature Gran % (Auto) 0.600, Neut % (Auto) 89.9 H, Lymph % (Auto) 4.0 L, Franklin % (Auto) 4.9, Eos % (Auto) 0.2, Baso % (Auto) 0.4, Absolute Neuts (auto) 11.4 H, Absolute Lymphs (auto) 0.51 L, Nucleated RBC % 0, Differential Comment SCANNED, APTT 37.4 H, D-Dimer Quant (PE/DVT) 3.85 H*, Sodium 136, Potassium 3.7, Chloride 106, Carbon Dioxide 25.0, Anion Gap 5, BUN 26 H, Creatinine 1.13 H, Estim Creat Clear Calc 32.30, Est GFR (MDRD) Af Amer 59 L, Est GFR (MDRD) Non-Af 49 L, BUN/Creatinine Ratio 23.0 H, Glucose 106, Lactic Acid 1.5, Calcium 8.0 L, Troponin I High Sens 353 H*, B-Natriuretic Peptide 443.3 H 02/03/23 17:30: Troponin I High Sens 364 H* 02/04/23 00:20: APTT > 200.0 H* 02/04/23 05:42: Sodium 136, Potassium 3.2 L, Chloride 106, Carbon Dioxide 23.0, Anion Gap 7, BUN 21 H, Creatinine 1.10 H, Estim Creat Clear Calc 33.18, Est GFR (MDRD) Af Amer 61, Est GFR (MDRD) Non-Af 51 L, BUN/Creatinine Ratio 19.1, Glucose 94, Calcium 7.8 L Micro: Microbiology 02/02/23 12:30 Urine, Clean Catch Urine Culture - Final Mixed Gram Pos & Gram Neg Org ABG Data ABG results: ABG 02/03/23 14:49 Specimen Type ART Sample Site L Radial pH 7.48 H Bicarbonate Actual 20.3 L Total CO2 21 Base Excess -3 L O2 Saturation 95 O2 % 2.0 ABG pCO2 27.3 L ABG pO2 68 L Nico Test Positive O2 Delivery Device Cannula Vent Mode Not entered Radiography Diagnostic Testing: Radiology Impression Chest X-Ray 02/03/23 14:24 IMPRESSION: Left basilar ill-defined opacities may be secondary to atelectasis and/or pneumonia. Electronically Signed: Emma Ibarra MD at 14:55 EST , Chest CTA 02/03/23 16:25 IMPRESSION: No evidence of pulmonary emboli. Right lower lobe and right middle lobe consolidation may be consistent with pneumonia. Small bilateral pleural effusions. Left basilar consolidation or atelectasis. Electronically Signed: Peg Pro MD at 18:21 EST Reading Location ID and State: [address] [place] [address] Tel , Service support , Physical Exam Narrative General: Alert, oriented, no apparent distress HEENT: Atraumatic, normocephalic Eyes: Anicteric, normal conjunctiva, extraocular movements grossly intact Neck: Supple Respiratory: Somewhat diminished at the bases, normal respiratory effort Cardiovascular: Regular rate and rhythm GI: Soft, nontender, nondistended Extremities: No edema Musculoskeletal: Moving all extremities Neuro: No overt focal neurological deficits Skin: No rashes appreciated Psych: Cooperative Assessment & Plan Assessment/Plan (1) Obstruction of left ureteropelvic junction (UPJ) due to stone: (2) Elevated troponin: PLAN: Plan Patient is an 82-year-old female who presented to [facility] ED on 02/02/2023 with left-sided abdominal and flank pain. Found on CT scan to have a 9 mm calculus in the left renal pelvis with mild degree of left hydronephrosis and left perinephric stranding. Urology primary patient with Dr. Vides. S/p cystoscopy with left ureteral stent placement on afternoon of 02/02. Medicine consulted postoperatively for medical management. #Left obstructing kidney stone, concern for UTI S/p cystoscopy with left ureteral stent placement on 02/[address] Vides. Patient tolerated procedure well, no immediate postoperative complications. Patient seen at bedside on the floor shortly after her procedure. Resting comfortably in bed, minimal left-sided back or flank pain, no fevers or chills, hemodynamically stable. WBC count 14.5, mildly hypertensive and tachycardic, afebrile on admission. UA showed 100 leukocyte esterase, negative nitrates, 10-25 WBCs, 0 bacteria. ? Urology primary patient. Initiated on ceftriaxone for on admission for presumed UTI, okay to continue for now. Blood cultures, urine culture pending. Tylenol as needed for pain control. -02/03: UA not convincing for UTI but patient did have signs and symptoms consistent with infection on admission, is on Rocephin, awaiting cultures. Lactic acid did downtrend discussed plan with urology -02/04: Patient spiked temperatures yesterday up to 102.6, broaden antibiotic spectrum, original blood cultures pending, if any further temperatures may benefit from repeating. Urine with next gram-positive and gram-negative organisms. Did place order for bladder scan for postvoid to verify patient not retaining #MICHAEL Creatinine 1.21, BUN 12 on admit. Baseline creatinine appears to be around 0.7-0.8. Suspect prerenal in setting of kidney stone ? UTI as noted above. S/p 2 L normal saline on 02/02. ? Monitor BMP daily. Monitor urine output. Encouraged p.o. intake, could consider further IV fluids as needed. -02/03: Kidney function improved slightly from yesterday, IV fluids to be held -02/04: Kidney function roughly unchanged, patient's been off IV fluids as she appeared somewhat overloaded #Tachycardia and suboptimal O2-found to have elevated troponin, elevated D-dimer, elevated BNP -Was 89 to 90% on room air and was placed on several liters of O2, is on fluids, slight crackles but only appreciated at left base and does not appear fluid overloaded, if not improving will need further work-up -Patient with sinus tach, may be due to underlying infection, monitor cultures and continue antibiotics, can always consider broadening spectrum until culture results are back, status post IV fluids -02/04: Called yesterday due to patient being more tachypneic and tachycardic, was found to have elevated troponin, BNP, D-dimer and she was alkalotic on ABG, EKG unchanged from previous, chest x-ray infiltrate but appeared congested, CTA with no D-dimer, given at bedside she had complained of some chest/epigastric discomfort and has elevated troponin cannot rule out that there had been a component of ACS so patient on heparin drip and cardiology consulted, given elevated BNP and that she appeared somewhat congested on imaging she was given one-time dose of Lasix. Intake and output, daily weights, echo ordered. Patient for likely left heart cath tomorrow, second dose of Lasix ordered by cardiology DVT prophylaxis: Heparin subcu CODE STATUS: Full code, unverified Total clinical time spent by myself addressing the patient's medical issues, reviewing all the data, and collaborating with patient's care team: 51 minutes. Charges/Coding Visit Charges Inpatient E&M: 40543 Subs Hosp L3
[2023-02-04] MEDS: Potassium Chloride 10mEq/100mL 10 MEQ/100 ML IV.SOLN. 100 MEQ IV BOLUS (08:59)
[2023-02-04 09:00] LABS: Troponin-I HS 331 pg/mL (3.0-54.0)
--- NOTE | 2023-02-04 09:11 | PCM.PN.GU ---
Subjective Subjective Patient's status changed dramatically yesterday, she became febrile tachycardic blood work was done and she was found to have an elevated troponin, cardiology consult pending, she underwent a CT scan of the chest to rule out a pulmonary embolism which came back negative for PE possible pneumonia. She is on broad-spectrum antibiotics. She is still having some fevers. Urine culture surprisingly grew out mixed growth blood cultures are pending. She has a stent in place on the left side from a kidney stone causing obstruction of the left kidney. Her creatinine is stable, her white blood count has come down some. Patient today is only complaining of some mild abdominal pain and she was wondering when she can go home told her that because of her current situation we had to do a full work-up and she is not ready for discharge yet Objective Data Objective Data Vital Signs: Vital Signs Temp Pulse Resp BP Pulse Ox O2 Del Method O2 Flow Rate 98.3 F 102 H 25 H 106/50 L 96 Nasal Cannula 2 02/04/23 09:01 02/04/23 09:01 02/04/23 09:01 02/04/23 09:01 02/04/23 09:01 02/04/23 09:01 02/04/23 09:01 FiO2 35 02/03/23 16:45 Oxygen Flow Rate (L/min) 2 Oxygen Delivery Method Nasal Cannula Weight: 67 kg Body Mass Index (BMI) 26.2 Intake & Output: Intake and Output for Last 24 Hours 02/02/23 02/03/23 02/04/23 23:59 23:59 23:59 Intake Total 1100 / 1100 2195.67 / 2195.67 122.33 / 122.33 Balance 1100 / 1100 2195.67 / 2195.67 122.33 / 122.33 Lab / Micro Data 02/04/23 05:42 02/04/23 05:42 Labs: Laboratory Results - last 24 hr 02/03/23 07:28: Sodium 141, Potassium 3.9, Chloride 110 H, Carbon Dioxide 21.0, Anion Gap 10, BUN 19 H, Creatinine 1.12 H, Estim Creat Clear Calc 32.59, Est GFR (MDRD) Af Amer 60, Est GFR (MDRD) Non-Af 50 L, BUN/Creatinine Ratio 17.0, Glucose 109 H, Calcium 7.6 L 02/03/23 15:27: WBC 12.7 H, RBC 4.31, Hgb 12.3, Hct 39.5, MCV 91.6 D, MCH 28.5, MCHC 31.1 L, RDW Std Deviation 48.1 H, RDW Coeff of Abundio 14.1, Plt Count 95 L, MPV 10.9, Immature Gran % (Auto) 0.600, Neut % (Auto) 89.9 H, Lymph % (Auto) 4.0 L, Franklin % (Auto) 4.9, Eos % (Auto) 0.2, Baso % (Auto) 0.4, Absolute Neuts (auto) 11.4 H, Absolute Lymphs (auto) 0.51 L, Nucleated RBC % 0, Differential Comment SCANNED, APTT 37.4 H, D-Dimer Quant (PE/DVT) 3.85 H*, Sodium 136, Potassium 3.7, Chloride 106, Carbon Dioxide 25.0, Anion Gap 5, BUN 26 H, Creatinine 1.13 H, Estim Creat Clear Calc 32.30, Est GFR (MDRD) Af Amer 59 L, Est GFR (MDRD) Non-Af 49 L, BUN/Creatinine Ratio 23.0 H, Glucose 106, Lactic Acid 1.5, Calcium 8.0 L, Troponin I High Sens 353 H*, B-Natriuretic Peptide 443.3 H 02/03/23 17:30: Troponin I High Sens 364 H* 02/04/23 00:20: APTT > 200.0 H* 02/04/23 05:42: WBC 12.1 H, RBC 4.14 L, Hgb 12.0, Hct 37.7, MCV 91.1, MCH 29.0, MCHC 31.8 L, RDW Std Deviation 47.8 H, RDW Coeff of Abundio 14.2, Plt Count 93 L, MPV 11.3, Sodium 136, Potassium 3.2 L, Chloride 106, Carbon Dioxide 23.0, Anion Gap 7, BUN 21 H, Creatinine 1.10 H, Estim Creat Clear Calc 33.18, Est GFR (MDRD) Af Amer 61, Est GFR (MDRD) Non-Af 51 L, BUN/Creatinine Ratio 19.1, Glucose 94, Calcium 7.8 L, Troponin I High Sens 331 H* Micro: Microbiology 02/02/23 12:30 Urine, Clean Catch Urine Culture - Final Mixed Gram Pos & Gram Neg Org ABG Data ABG results: ABG 02/03/23 14:49 Specimen Type ART Sample Site L Radial pH 7.48 H Bicarbonate Actual 20.3 L Total CO2 21 Base Excess -3 L O2 Saturation 95 O2 % 2.0 ABG pCO2 27.3 L ABG pO2 68 L Nico Test Positive O2 Delivery Device Cannula Vent Mode Not entered Radiography Diagnostic Testing: Radiology Impression Chest X-Ray 02/03/23 14:24 IMPRESSION: Left basilar ill-defined opacities may be secondary to atelectasis and/or pneumonia. Electronically Signed: Emma Ibarra MD at 14:55 EST , Chest CTA 02/03/23 16:25 IMPRESSION: No evidence of pulmonary emboli. Right lower lobe and right middle lobe consolidation may be consistent with pneumonia. Small bilateral pleural effusions. Left basilar consolidation or atelectasis. Electronically Signed: Peg Pro MD at 18:21 EST , Physical Exam Const alert and oriented x3 General Appearance: cooperative HEENT normocephalic, head/scalp atraumatic, EAC's normal and TM's normal bilaterally Eyes PERRL and EOMs intact bilaterally Pupil: sluggish Neck no lymphadenopathy, supple and no JVD General: trachea midline Lymph Lymphatic: no lymphadenopathy noted, lymphedema and lymphadenopathy Resp normal respiratory effort, normal air movement and clear to auscultation bilaterally Cardio regular rate, regular rhythm and peripheral pulses 2+ throughout GI soft to palpation, non-tender and non-distended Extremity normal capillary refill and no clubbing, cyanosis or edema General Extremity: no tenderness to palpation of joints or extremities Skin no rashes or lesions noted General Skin Exam: turgor normal Lesions: no lesions Rashes: no rashes Neuro CN's II-XII intact bilaterally Speech: speech normal Motor Exam: strength 5/5 throughout; Negative for general weakness Psych thought process normal, cooperative and affect normal Appearance: appropriate Assessment & Plan Assessment/Plan (1) Elevated troponin: (2) Acute UTI: (3) Obstruction of left ureteropelvic junction (UPJ) due to stone: (4) Intractable abdominal pain: (5) Acute left flank pain:
[2023-02-04 09:45] LABS: Partial Thromboplast Time 133.6 Seconds (24.1-36.2)
--- NOTE | 2023-02-04 10:37 | PCM.CONS.C ---
Assessment & Plan Assessment/Plan (1) Elevated troponin: PLAN: Patient is noted to have shortness of breath postoperatively as well as an elevated troponin. This could all be related to demand ischemia. I would like us to obtain an echocardiogram and depending on the findings further recommendations will be made. In the meantime we will continue the patient on heparin. If the ejection fraction is noted to be normal we may actually elect to pursue any invasive approach as an outpatient when she is recovered from her sepsis and pyelonephritis. (2) Shortness of breath: PLAN: She did present with some shortness of breath postoperatively which may have been a combination of intravenous fluids as well as likely demand ischemia. Depending on the results of the echocardiogram further recommendations will be made. Thank you for allowing me to participate in the care of your patient. Please don't hesitate to call if any issues arise. (3) Paroxysmal atrial fibrillation: PLAN: She appears to be in atrial fibrillation at this time with a controlled ventricular response rate. The plan will be to continue the current dose of heparin and will monitor the heart rate. May need low-dose beta-isabel. Will await the results of the echocardiogram for further decision making. HPI Consult Data Date of Consult: 02/04/23 HPI Narrative HPI Narrative: MACEY WISE, is a 82 F who presents with left flank pain and was noted to have a left ureteropelvic junction obstruction due to a 9 mm stone. She underwent lithotripsy. Postoperatively was doing well but then developed shortness of breath chest heaviness and fevers. Appeared to require intravenous Lasix and cardiac enzymes were obtained which were noted to be abnormal as well as natruretic peptide level. Patient has settled with the Lasix and intravenous heparin which was started as well as electrolyte correction. Still having mild fevers. This morning appears to be mildly tachypneic. EKG demonstrated sinus rhythm initially but at the moment appears to be in atrial fibrillation. She denies any previous episodes of the above. [facility] Medical History Acute gastritis without hemorrhage Alcohol use Allergic rhinitis Anemia Ataxia Balance problem Community acquired pneumonia Diaphragmatic hernia without mention of obstruction or gangrene Diverticulitis of colon Encephalopathy Esophageal dysphagia Esophagitis GERD (gastroesophageal reflux disease) History of echocardiogram History of edema HLD (hyperlipidemia) Hx of colonic polyps Major depressive disorder, single episode Mediastinal lymphadenopathy Non-smoker Pneumonia Shortness of breath Shortness of breath on exertion Wears glasses Home Medications multivitamin (Multiple Vitamins tablet) 1 tab PO DAILY 01/16/18 [History Last Taken Unknown] ascorbic acid (vitamin C) 500 mg tablet,extended release (Vitamin C ER) 500 mg PO DAILY 08/26/21 [History Last Taken Unknown] cholecalciferol (vitamin D3) 25 mcg (1,000 unit) capsule (Vitamin D3) 25 mcg PO DAILY 08/26/21 [History Last Taken Unknown] Allergy/AdvReac Type Severity Reaction Status Date / Time naproxen [From Aleve] Allergy Severe Anaphylaxis Verified 02/02/23 10:03 Surgical History Hx of cholecystectomy Hx of colonoscopy Social History household members: spouse Smoking Status: Never smoker alcohol intake: never substance use type: does not use ROS Constitutional Constitutional: Denies fever(s) or weight loss Eyes Eyes: Reports systems reviewed and no addt'l complaints, except as documented ENT HEENT: Reports systems reviewed and no addt'l complaints, except as documented Cardiovascular Cardiovascular: Denies chest pain at rest, chest pain with activity, dyspnea at rest, dyspnea on exertion, edema, palpitations or paroxysmal nocturnal dyspnea Respiratory/Chest Respiratory/Chest: Denies dyspnea on exertion, productive cough, shortness of breath at rest or shortness of breath with exertion Gastrointestinal Gastrointestinal: Denies change in bowel habits, nausea, vomiting or weight changes Genitourinary Genitourinary: Denies difficulty urinating Musculoskeletal Musculoskeletal: Denies joint stiffness or muscle weakness Integumentary Integumentary: Denies lesions Neurologic Neurologic: Denies dizziness or syncope Psychiatric Psychiatric: Denies anxiety Endocrine Endocrinology: Denies excessive sweating or fatigue Hematologic/Lymphatic Hematologic/Lymphatic: Denies anemia Allergic/Immunologic Allergic/Immunologic: Denies seasonal rhinorrhea Risk Stratification Risk Stratification Applicable: Yes Age >/= 65: Yes >/= 3 CAD Risk Factors (HTN, HLD, DM, family hx of CAD, or current smoker): No Aspirin Use in the Past 7 Days: No Severe Angina (>/= episodes in 24 hours): No EKG ST Changes >/= 0.5mm: No Positive Cardiac Marker: Yes DARYL Risk Stratification Score: 2 DARYL % Risk: 8% Risk Objective Data Vital Signs: Vital Signs Temp Pulse Resp BP Pulse Ox O2 Del Method O2 Flow Rate 98.3 F 102 H 25 H 106/50 L 96 Nasal Cannula 2 02/04/23 09:01 02/04/23 09:01 02/04/23 09:01 02/04/23 09:01 02/04/23 10:25 02/04/23 09:01 02/04/23 10:25 FiO2 35 02/03/23 16:45 Oxygen Flow Rate (L/min) 2 Oxygen Delivery Method Nasal Cannula Weight: 147 lb 11.355 oz Body Mass Index (BMI) 26.2 Intake & Output: Intake and Output for Last 24 Hours 02/02/23 02/03/23 02/04/23 23:59 23:59 23:59 Intake Total 1100 / 1100 2195.67 / 2195.67 282.44 / 282.44 Balance 1100 / 1100 2195.67 / 2195.67 282.44 / 282.44 Lab / Micro Data 02/04/23 05:42 02/04/23 05:42 Labs: Laboratory Results - last 24 hr 02/03/23 15:27: WBC 12.7 H, RBC 4.31, Hgb 12.3, Hct 39.5, MCV 91.6 D, MCH 28.5, MCHC 31.1 L, RDW Std Deviation 48.1 H, RDW Coeff of Abundio 14.1, Plt Count 95 L, MPV 10.9, Immature Gran % (Auto) 0.600, Neut % (Auto) 89.9 H, Lymph % (Auto) 4.0 L, Grainger % (Auto) 4.9, Eos % (Auto) 0.2, Baso % (Auto) 0.4, Absolute Neuts (auto) 11.4 H, Absolute Lymphs (auto) 0.51 L, Nucleated RBC % 0, Differential Comment SCANNED, APTT 37.4 H, D-Dimer Quant (PE/DVT) 3.85 H*, Sodium 136, Potassium 3.7, Chloride 106, Carbon Dioxide 25.0, Anion Gap 5, BUN 26 H, Creatinine 1.13 H, Estim Creat Clear Calc 32.30, Est GFR (MDRD) Af Amer 59 L, Est GFR (MDRD) Non-Af 49 L, BUN/Creatinine Ratio 23.0 H, Glucose 106, Lactic Acid 1.5, Calcium 8.0 L, Troponin I High Sens 353 H*, B-Natriuretic Peptide 443.3 H 02/03/23 17:30: Troponin I High Sens 364 H* 02/04/23 00:20: APTT > 200.0 H* 02/04/23 05:42: WBC 12.1 H, RBC 4.14 L, Hgb 12.0, Hct 37.7, MCV 91.1, MCH 29.0, MCHC 31.8 L, RDW Std Deviation 47.8 H, RDW Coeff of Abundio 14.2, Plt Count 93 L, MPV 11.3, Sodium 136, Potassium 3.2 L, Chloride 106, Carbon Dioxide 23.0, Anion Gap 7, BUN 21 H, Creatinine 1.10 H, Estim Creat Clear Calc 33.18, Est GFR (MDRD) Af Amer 61, Est GFR (MDRD) Non-Af 51 L, BUN/Creatinine Ratio 19.1, Glucose 94, Calcium 7.8 L, Troponin I High Sens 331 H* 02/04/23 09:07: APTT 133.6 H* Micro: Microbiology 02/02/23 12:30 Urine, Clean Catch Urine Culture - Final Mixed Gram Pos & Gram Neg Org ABG Data ABG results: ABG 02/03/23 14:49 Specimen Type ART Sample Site L Radial pH 7.48 H Bicarbonate Actual 20.3 L Total CO2 21 Base Excess -3 L O2 Saturation 95 O2 % 2.0 ABG pCO2 27.3 L ABG pO2 68 L Nico Test Positive O2 Delivery Device Cannula Vent Mode Not entered Cardiology Labs/Tests 02/03/23 14:49: pH 7.48 H, Bicarbonate Actual 20.3 L, Base Excess -3 L, O2 Saturation 95, ABG pCO2 27.3 L, ABG pO2 68 L, Nico Test Positive 02/03/23 15:27: WBC 12.7 H, RBC 4.31, Hgb 12.3, Hct 39.5, MCV 91.6 D, MCH 28.5, MCHC 31.1 L, Plt Count 95 L, MPV 10.9, Immature Gran % (Auto) 0.600, Neut % (Auto) 89.9 H, Lymph % (Auto) 4.0 L, Grainger % (Auto) 4.9, Eos % (Auto) 0.2, Baso % (Auto) 0.4, Absolute Neuts (auto) 11.4 H, Nucleated RBC % 0, APTT 37.4 H, D-Dimer Quant (PE/DVT) 3.85 H*, Sodium 136, Potassium 3.7, Chloride 106, Carbon Dioxide 25.0, Anion Gap 5, BUN 26 H, Creatinine 1.13 H, Est GFR (MDRD) Af Amer 59 L, Est GFR (MDRD) Non-Af 49 L, BUN/Creatinine Ratio 23.0 H, Glucose 106, Lactic Acid 1.5, Calcium 8.0 L, B-Natriuretic Peptide 443.3 H 02/04/23 00:20: APTT > 200.0 H* 02/04/23 05:42: WBC 12.1 H, RBC 4.14 L, Hgb 12.0, Hct 37.7, MCV 91.1, MCH 29.0, MCHC 31.8 L, Plt Count 93 L, MPV 11.3, Sodium 136, Potassium 3.2 L, Chloride 106, Carbon Dioxide 23.0, Anion Gap 7, BUN 21 H, Creatinine 1.10 H, Est GFR (MDRD) Af Amer 61, Est GFR (MDRD) Non-Af 51 L, BUN/Creatinine Ratio 19.1, Glucose 94, Calcium 7.8 L 02/04/23 09:07: APTT 133.6 H* Rhythm: EKG: ECHO: Stress Test: Cardiac Cath: PCI: CT Surgery: Holter monitor: EPS: PPM: CXR: Chest CT Scan: Radiography Diagnostic Testing: Radiology Impression Chest X-Ray 02/03/23 14:24 IMPRESSION: Left basilar ill-defined opacities may be secondary to atelectasis and/or pneumonia. Electronically Signed: Emma Ibarra MD at 14:55 EST , Chest CTA 02/03/23 16:25 IMPRESSION: No evidence of pulmonary emboli. Right lower lobe and right middle lobe consolidation may be consistent with pneumonia. Small bilateral pleural effusions. Left basilar consolidation or atelectasis. Electronically Signed: Peg Pro MD at 18:21 EST ,
[2023-02-04] MEDS: Docusate Sodium 100 MG Capsule 200 MG PO (13:31)
[2023-02-04] MEDS: Potassium Chloride Oral Tablet 10 MEQ PO (13:32)
[2023-02-04] MEDS: Furosemide 20 MG/2 ML VIAL IV (13:32)
[2023-02-04] MEDS: Vancomycin IV 1,000 MG/200 ML BAG 200 MG IV (18:08)
[2023-02-04 18:38] LABS: Partial Thromboplast Time 33.4 Seconds (24.1-36.2)
[2023-02-04] MEDS: Heparin Injection (Vial) 5,000 UNIT/ML VIAL IV (18:58)
[2023-02-04] MEDS: 0.9% Saline Lock 10 ML Syringe IV (21:40)
[2023-02-05] VITALS (12 sets, daily range): BP systolic 109–147; BP diastolic 47–84; PULSE 68–108; RESP 14–27; TEMP 36.6–37.2; O2SAT 89–96; BMI 26.1
[2023-02-05 01:36] LABS: Partial Thromboplast Time 61.3 Seconds (24.1-36.2)
[2023-02-05] MEDS: Piperacil/Tazobactam 3.375 GM in 0.9% Normal Saline (50mL MB+) 50 ML IV ×2 (06:16→14:43)
[2023-02-05 06:43] LABS: Hematocrit 36.8 % (37-47); Hemoglobin 11.7 g/dL (12.0-15.0); Mean Corp Hgb Conc 31.8 g/dL (32-36); Mean Corpuscular Hgb 28.6 pg (27.0-32.0); Platelet Count 105 K/mm3 (150-450); RBC Distribution Width CV 13.9 % (11.6-14.6); RBC Distribution Width SD 46.2 fl (35.1-43.9); Red Blood Count 4.09 M/mm3 (4.2-5.4); White Blood Count 9.7 K/mm3 (4.4-11.0)
[2023-02-05 07:00] LABS: Partial Thromboplast Time 44.8 Seconds (24.1-36.2)
[2023-02-05 07:24] LABS: Anion Gap 7 (5-15); BUN 18 mg/dL (7-18); BUN/Creat Ratio 21.6 RATIO (10-20); Calcium,Total 8.1 mg/dL (8.5-10.1); Chloride 105 mmol/L (98-107); Creatinine, Serum 0.83 mg/dL (0.55-1.02); EST Glomerular Filtration Rate 70 mL/min (>60); Est Glom Filt Rate - Afr Amer 85 mL/min (>60); Estimated Creatinine Clearance 43.97 ml/min; Glucose 109 mg/dL (74-106); Potassium 3.1 mmol/L (3.5-5.1); Sodium Level 138 mmol/L (136-145)
--- NOTE | 2023-02-05 07:50 | PCM.PN.GU ---
Subjective Subjective 82-year-old female admitted for stone and sepsis urine cultures mixed growth just continue as a prospect him antibiotics, she was seen by cardiology yesterday appreciate input. She continues on heparin drip. Status post stent placement. Clinically stable. White blood count is now back to normal. Hemodynamics is stable. Will wait final input from medical service to see when she can be ready for discharge Objective Data Objective Data Vital Signs: Vital Signs Temp Pulse Resp BP Pulse Ox O2 Del Method O2 Flow Rate 98.7 F 98 16 120/67 96 Nasal Cannula 2 02/05/23 05:36 02/05/23 05:36 02/05/23 05:36 02/05/23 05:36 02/05/23 05:36 02/05/23 05:36 02/05/23 05:36 FiO2 35 02/03/23 16:45 Oxygen Flow Rate (L/min) 2 Oxygen Delivery Method Nasal Cannula Weight: 66.8 kg Body Mass Index (BMI) 26.1 Intake & Output: Intake and Output for Last 24 Hours 02/03/23 02/04/23 02/05/23 23:59 23:59 23:59 Intake Total 2195.67 / 2195.67 596.44 / 596.44 89.1 / 89.1 Balance 2195.67 / 2195.67 596.44 / 596.44 89.1 / 89.1 Lab / Micro Data 02/05/23 06:10 02/05/23 06:10 Labs: Laboratory Results - last 24 hr 02/04/23 05:42: WBC 12.1 H, RBC 4.14 L, Hgb 12.0, Hct 37.7, MCV 91.1, MCH 29.0, MCHC 31.8 L, RDW Std Deviation 47.8 H, RDW Coeff of Abundio 14.2, Plt Count 93 L, MPV 11.3, Sodium 136, Potassium 3.2 L, Chloride 106, Carbon Dioxide 23.0, Anion Gap 7, BUN 21 H, Creatinine 1.10 H, Estim Creat Clear Calc 33.18, Est GFR (MDRD) Af Amer 61, Est GFR (MDRD) Non-Af 51 L, BUN/Creatinine Ratio 19.1, Glucose 94, Calcium 7.8 L, Troponin I High Sens 331 H* 02/04/23 09:07: APTT 133.6 H* 02/04/23 18:20: APTT 33.4 02/05/23 01:07: APTT 61.3 H 02/05/23 06:10: WBC 9.7, RBC 4.09 L, Hgb 11.7 L, Hct 36.8 L, MCV 90.0, MCH 28.6, MCHC 31.8 L, RDW Std Deviation 46.2 H, RDW Coeff of Abundio 13.9, Plt Count 105 L, MPV 11.0, APTT 44.8 H, Sodium 138, Potassium 3.1 L, Chloride 105, Carbon Dioxide 26.0, Anion Gap 7, BUN 18, Creatinine 0.83, Estim Creat Clear Calc 43.97, Est GFR (MDRD) Af Amer 85, Est GFR (MDRD) Non-Af 70, BUN/Creatinine Ratio 21.6 H, Glucose 109 H, Calcium 8.1 L Micro: Microbiology 02/02/23 12:30 Urine, Clean Catch Urine Culture - Final Mixed Gram Pos & Gram Neg Org
--- NOTE | 2023-02-05 08:08 | PCM.PN.HOSP ---
Reason for Visit Reason for Visit: Diagnoses Paroxysmal atrial fibrillation (02/02/23) Calculus of ureter (02/02/23) Urinary tract infection, site not specified (02/02/23) Shortness of breath (02/02/23) Unspecified abdominal pain (02/02/23) Other specified abnormal findings of blood chemistry (02/02/23) Subjective Subjective Patient underwent left heart catheterization which failed to demonstrate any hemodynamically obstructive lesions Objective Data Objective Data Vital Signs: Vital Signs Temp Pulse Resp BP Pulse Ox O2 Del Method O2 Flow Rate 97.9 F 93 18 115/54 L 95 Nasal Cannula 2 02/05/23 08:00 02/05/23 08:00 02/05/23 08:00 02/05/23 08:00 02/05/23 08:00 02/05/23 08:04 02/05/23 08:04 FiO2 35 02/03/23 16:45 Oxygen Flow Rate (L/min) 2 Oxygen Delivery Method Nasal Cannula Weight: 66.8 kg Body Mass Index (BMI) 26.1 Intake & Output: Intake and Output for Last 24 Hours 02/03/23 02/04/23 02/05/23 23:59 23:59 23:59 Intake Total 2195.67 / 2195.67 596.44 / 596.44 127.5 / 127.5 Balance 2195.67 / 2195.67 596.44 / 596.44 127.5 / 127.5 Lab / Micro Data 02/05/23 06:10 02/05/23 06:10 Labs: Laboratory Results - last 24 hr 02/04/23 05:42: WBC 12.1 H, RBC 4.14 L, Hgb 12.0, Hct 37.7, MCV 91.1, MCH 29.0, MCHC 31.8 L, RDW Std Deviation 47.8 H, RDW Coeff of Abundio 14.2, Plt Count 93 L, MPV 11.3, Troponin I High Sens 331 H* 02/04/23 09:07: APTT 133.6 H* 02/04/23 18:20: APTT 33.4 02/05/23 01:07: APTT 61.3 H 02/05/23 06:10: WBC 9.7, RBC 4.09 L, Hgb 11.7 L, Hct 36.8 L, MCV 90.0, MCH 28.6, MCHC 31.8 L, RDW Std Deviation 46.2 H, RDW Coeff of Abundio 13.9, Plt Count 105 L, MPV 11.0, APTT 44.8 H, Sodium 138, Potassium 3.1 L, Chloride 105, Carbon Dioxide 26.0, Anion Gap 7, BUN 18, Creatinine 0.83, Estim Creat Clear Calc 43.97, Est GFR (MDRD) Af Amer 85, Est GFR (MDRD) Non-Af 70, BUN/Creatinine Ratio 21.6 H, Glucose 109 H, Calcium 8.1 L Micro: Microbiology 02/02/23 12:30 Urine, Clean Catch Urine Culture - Final Mixed Gram Pos & Gram Neg Org Physical Exam Narrative GENERAL: cooperative HEENT: Atraumatic; normocephalic EYES; Anicteric, Normal Conjunctiva NECK; supple, normal thyroid, RESPIRATORY: Diminished to auscultation CARDIOVASCULAR: Regular S1 S2, GI: soft, normoactive bowel sounds, : No Renal angle tenderness; EXTREMITIES: No edema, no clubbing, MUSCULOSKELETAL: no muscle wasting NEURO: Awake; no lateralizing signs. SKIN: No Rash PSYCH; Flat affect Assessment & Plan Assessment/Plan (1) Obstruction of left ureteropelvic junction (UPJ) due to stone: (2) Elevated troponin: PLAN: Plan Patient is an 82-year-old female who presented to [facility] ED on 02/02/2023 with left-sided abdominal and flank pain. Found on CT scan to have a 9 mm calculus in the left renal pelvis with mild degree of left hydronephrosis and left perinephric stranding. Urology primary patient with Dr. Vides. S/p cystoscopy with left ureteral stent placement on afternoon of 02/02. Medicine consulted postoperatively for medical management. 1. Left obstructive kidney stone ?S/p cystoscopy with left ureteral stent placement on 02/[address] Vides 2. Acute kidney injury ? Resolved with rehydration 3. Acute cystitis ? Patient cultures came back negative patient was however treated with antibiotics 4. Tachycardia ? Patient was found to have elevated troponin. Cardiology consulted patient underwent left heart catheterization on 02/05/2023 which did not demonstrate any hemodynamically coronary artery disease 5. Elevated troponin ? Secondary to myocardial injury from patient underlying infection management as discussed above 6. Paroxysmal A-fib ? Patient is in sinus rhythm. 7. DVT prophylaxis ? SC heparin Time spent in the patient's overall evaluation,decision-making process, review of diagnostic data, adjustment of management, discussion with other providers, nursing nursing and ancillary staff involved in patient's care documentation, 35 minutes Charges/Coding Visit Charges Inpatient E&M: 35002 Subs Hosp L2
[2023-02-05] MEDS: Aspirin E.C. 81 MG Tablet 162 MG PO (08:20)
[2023-02-05] MEDS: Potassium Chloride Oral Tablet 20 MEQ 40 MEQ PO (08:20)
[2023-02-05] MEDS: 0.9% Normal Saline (1000mL) 1,000 ML 15 ML IV (08:33)
--- NOTE | 2023-02-05 11:57 | PN.CARD_ITS ---
Subjective Subjective Patient seen and evaluated and underwent cardiac catheterization today Objective Data Vital Signs: Vital Signs Temp Pulse Resp BP Pulse Ox O2 Del Method O2 Flow Rate 97.9 F 93 18 115/54 L 94 Nasal Cannula 2 02/05/23 08:00 02/05/23 08:00 02/05/23 08:00 02/05/23 08:00 02/05/23 08:41 02/05/23 08:41 02/05/23 08:41 FiO2 35 02/03/23 16:45 Oxygen Flow Rate (L/min) 2 Oxygen Delivery Method Nasal Cannula Weight: 147 lb 4.301 oz Body Mass Index (BMI) 26.1 Intake & Output: Intake and Output for Last 24 Hours 02/03/23 02/04/23 02/05/23 23:59 23:59 23:59 Intake Total 2195.67 / 2195.67 596.44 / 596.44 177.5 / 177.5 Balance 2195.67 / 2195.67 596.44 / 596.44 177.5 / 177.5 Lab / Micro Data 02/05/23 06:10 02/05/23 06:10 Labs: Laboratory Results - last 24 hr 02/04/23 18:20: APTT 33.4 02/05/23 01:07: APTT 61.3 H 02/05/23 06:10: WBC 9.7, RBC 4.09 L, Hgb 11.7 L, Hct 36.8 L, MCV 90.0, MCH 28.6, MCHC 31.8 L, RDW Std Deviation 46.2 H, RDW Coeff of Abundio 13.9, Plt Count 105 L, MPV 11.0, APTT 44.8 H, Sodium 138, Potassium 3.1 L, Chloride 105, Carbon Dioxide 26.0, Anion Gap 7, BUN 18, Creatinine 0.83, Estim Creat Clear Calc 43.97, Est GFR (MDRD) Af Amer 85, Est GFR (MDRD) Non-Af 70, BUN/Creatinine Ratio 21.6 H, Glucose 109 H, Calcium 8.1 L Cardiology Labs/Tests 02/04/23 18:20: APTT 33.4 02/05/23 01:07: APTT 61.3 H 02/05/23 06:10: WBC 9.7, RBC 4.09 L, Hgb 11.7 L, Hct 36.8 L, MCV 90.0, MCH 28.6, MCHC 31.8 L, Plt Count 105 L, MPV 11.0, APTT 44.8 H, Sodium 138, Potassium 3.1 L , Chloride 105, Carbon Dioxide 26.0, Anion Gap 7, BUN 18, Creatinine 0.83, Est GFR (MDRD) Af Amer 85, Est GFR (MDRD) Non-Af 70, BUN/Creatinine Ratio 21.6 H, Glucose 109 H, Calcium 8.1 L Rhythm: EKG: ECHO: Stress Test: Cardiac Cath: PCI: CT Surgery: Holter monitor: EPS: PPM: CXR: Chest CT Scan: Physical Exam Const alert, oriented x3 and no apparent distress General Appearance: cooperative HEENT hearing grossly normal bilaterally Head and Scalp: atraumatic Eyes EOMs intact bilaterally Neck General: normal visual inspection Chest inspection of chest normal and palpation of chest normal Resp normal respiratory effort Auscultation: clear to auscultation bilaterally Cardio regular rate, regular rhythm, S1 normal heart sound and S2 normal heart sound Jugular Venous Distention: JVD GI normal to inspection, nondistended, normoactive bowel sounds Extremity normal capillary refill and no pedal edema Peripheral Pulses: Yes pulses 2+ throughout and femoral pulses present Skin no rashes or lesions noted Neuro oriented x3 and CN's II-XII intact bilaterally Psych Appearance: grossly normal and appropriate Assessment & Plan Assessment/Plan (1) Elevated troponin: PLAN: Patient is noted to have shortness of breath postoperatively as well as an elevated troponin. This could all be related to demand ischemia. The cardiac catheterization today demonstrated no obstructive coronary disease. Ejection fraction was preserved. I would recommend continued medical therapy. (2) Shortness of breath: PLAN: She did present with some shortness of breath postoperatively which may have been a combination of intravenous fluids as well as likely demand ischemia. Thank you for allowing me to participate in the care of your patient. Please don't hesitate to call if any issues arise. (3) Paroxysmal atrial fibrillation: PLAN: She appears to be in normal sinus rhythm at this time with an incomplete left bundle branch block. Recommendation will be to continue beta-isabel I will discontinue heparin I would not start anticoagulation at this time.
--- NOTE | 2023-02-05 13:46 | CL.D_ITS ---
Patient Name: MACEY WISE Study Date: 02/05/2023 Performing: Raymond Li MD Ht: 63 inches 160.02 cm : 1940 Wt: 147.5 lbs 66.8 kg Age: 82 Gender: female BSA: 1.7 PROCEDURE(S) PERFORMED [id number])LHC/COR/LV CLINICAL PROFILE AND INDICATIONS Indications: Suspected CAD Heart Failure: NYHA Class: 2, Newly Diagnosed: Yes, Heart Failure Type: Diastolic Stress/Imaging Stress/Image Study Performed: No CAD Presentations: Non-STEMI. Symptom onset Date/Time: 41 Time Not Available CONCLUSIONS Mild CAD involving the anterior wall but no high-grade obstruction noted with borderline ejection fraction. RECOMMENDATIONS Medical therapy DESCRIPTION OF PROCEDURE The patient arrived to the procedure lab. The risks and benefits of the procedure as well as a full description of our services here and current unavailability of surgical backup were fully explained to the patient and/or their significant other prior to the catheterization. The Timeout was completed, verifying the correct patient and procedure. The patient's procedural site was prepped and draped in the usual fashion. Local anesthetic was given subcutaneously to right radial region with Lidocaine 2%. Using a modified Seldinger technique, arterial access was obtained via the right radial artery, a 6Fr sheath was inserted. Left Coronary Artery selective angiography was performed in multiple views using a 5 Fr. 4.0 [place] catheter. Right Coronary Artery selective angiography was then performed in multiple views using a 5 Fr. 4.0 [place] catheter. Left Ventriculography was performed in CAMPOS projection using a 5 Fr. [place] catheter. LV to AO pullback pressures were then recorded.The arterial sheath was pulled and a TR Band was applied for hemostasis CORONARY ANGIOGRAPHY DOMINANCE: Right Dominant LEFT HEART ASSESSMENT Left Ventricular Ejection Fraction: by LV Gram 55 % Anterior Hypokinesis - Mild Normal Left Ventricular systolic function LEFT MAIN: Angiographically normal LEFT ANTERIOR DESCENDING ARTERY: Moderate luminal irregularities up to 50% CIRCUMFLEX ARTERY: No significant disease noted RIGHT CORONARY ARTERY: Angiographically normal COMPLICATIONS No Complications PROCEDURE MEDICATIONS Versed 1 mg IV Fentanyl 50 mcg IV Oxygen: 2 L/min via nasal cannula Heparin given IA 02/05/2023 11:44:58 Verapamil 2.5mg, Ntg 200mcgs, 2000 units of Heparin given IA 02/05/2023 11:44:58 SUMMARY OF HEMODYNAMIC DATA Time AIR REST ECG 11:29:09 AO 91/46 (66) SA 11:48:47 LV 106/4, 11 11:54:39 LV 102/4, 11 11:54:47 LV 91/4, 14 11:55:28 LV 98/5, 11 11:55:36 LVp 98/8, 14 11:55:40 AOp 106/44 (70) 11:55:47 Signed By Raymond Li MD On 02/05/2023 13:46:15 Raymond Li MD
--- NOTE | 2023-02-05 15:29 | DCINST_ITS ---
Discharge Instructions Diet Discharge Diet: No restrictions Dressing / Incision Call your doctor if your incision/area has: Continuous Slow Oozing, Increased Pain/ Swelling, Increased Redness and Foul Smelling Discharge Call your doctor if you observe: Fever of 101 or Higher, Numbness or Tingling, Shortness of breath, Dizziness, Calf discomfort and Uncontrolled pain Follow Up Care Please Follow Up With: Mo Vides MD Test Results: Test results from this visit will be discussed in further detail at your follow- up appointment, if applicable. Discharge Plan Admission Admit Date/Time: 02/02/23 15:14 Primary Reason for Your Visit: stone with infection Attending Provider: Vega Pisano Primary Care Provider: Chauncey Lu Consulting Providers: Amelia Vickers; Raymond Li; Mo Vides Discharge Orders/Prescriptions Prescriptions: No Action multivitamin [Multiple Vitamins] tablet 1 tab PO DAILY ascorbic acid (vitamin C) [Vitamin C] 500 mg Tablet Extended Release 500 mg PO DAILY cholecalciferol (vitamin D3) [Vitamin D3] 25 mcg (1,000 unit) Capsule 25 mcg PO DAILY Referrals / Follow Up: Chauncey Lu DO [Primary Care Provider] - Disposition Discharge Orders: Discharge Patient (Routine); Ordered 02/05/23 Ordered By: Dr. Mo Vides
--- NOTE | 2023-02-05 15:30 | PCM.DC.SUM ---
Providers Date of Admission: 02/02/23 Date of Discharge: 02/05/23 Primary Care Physician: Dr. Chauncey Lu, Consultations 02/02/23 15:16 Consult: Hospitalist Routine Consulting Provider: Adriel Hebert Reason for Consult: sepsis and kidney stone EMERGENT Consult: Yes Notified: Yes Date Notified: 02/02/23 Time Notified: 18:44 Method of Notification: Text 02/03/23 18:35 Consult: Cardiology Routine Consulting Provider: Raymond Li Reason for Consult: Chest pain/epigastric pain, elevated troponin EMERGENT Consult: No Notified: Yes Date Notified: 02/03/23 Time Notified: 18:36 Method of Notification: Verbal Reason For Visit: STONE,INFECTED SEPSIS Diagnosis Discharge Diagnosis (1) Obstruction of left ureteropelvic junction (UPJ) due to stone: Status: Acute Code(s): N20.1 - Calculus of ureter (2) Elevated troponin: Status: Acute Code(s): R79.89 - Other specified abnormal findings of blood chemistry Medications at Discharge Home Medications multivitamin (Multiple Vitamins tablet) 1 tab PO DAILY 01/16/18 ascorbic acid (vitamin C) 500 mg tablet,extended release (Vitamin C ER) 500 mg PO DAILY 08/26/21 cholecalciferol (vitamin D3) 25 mcg (1,000 unit) capsule (Vitamin D3) 25 mcg PO DAILY 08/26/21 Hospital Course Summary of Care Provided Minutes Spent on Discharge: 35 Hospital Course: 82-year-old female was admitted for a stone in the left kidney she underwent cystoscopy and stent placement. Then afterwords she had a would appear to be sepsis with fevers and chills she was put on broad-spectrum antibiotics and elevated troponin she was then seen by cardiology and she underwent a heart catheterization I was negative she had an echocardiogram is also normal cardiology SARS consult medical SARS a consult today she's clinically stablee white comes back to normal sugar home also in a course of antibiotics Cipro two or pharmacy to take for the next few days my office will call her with instructions to get her set up for outpatient ureteroscopy and laser lithotripsy of the stone in her left kidney. Physical Exam Const alert and oriented x3 General Appearance: cooperative HEENT normocephalic, head/scalp atraumatic, EAC's normal and TM's normal bilaterally Eyes PERRL and EOMs intact bilaterally Pupil: sluggish Neck no lymphadenopathy, supple and no JVD General: trachea midline Lymph Lymphatic: no lymphadenopathy noted, lymphedema and lymphadenopathy Resp normal respiratory effort, normal air movement and clear to auscultation bilaterally Cardio regular rate, regular rhythm and peripheral pulses 2+ throughout GI soft to palpation, non-tender and non-distended Extremity normal capillary refill and no clubbing, cyanosis or edema General Extremity: no tenderness to palpation of joints or extremities Skin no rashes or lesions noted General Skin Exam: turgor normal Lesions: no lesions Rashes: no rashes Neuro CN's II-XII intact bilaterally Speech: speech normal Motor Exam: strength 5/5 throughout; Negative for general weakness Psych thought process normal, cooperative and affect normal Appearance: appropriate Medical Records Data Attestation: I reviewed the patient's medical records Weight / BMI Weight Weight: 66.8 kg Body Mass Index (BMI) 26.1 ABG / Lab / Microbiology Data 02/05/23 06:10 02/05/23 06:10 Laboratory: Laboratory Results - last 24 hr 02/04/23 18:20: APTT 33.4 02/05/23 01:07: APTT 61.3 H 02/05/23 06:10: WBC 9.7, RBC 4.09 L, Hgb 11.7 L, Hct 36.8 L, MCV 90.0, MCH 28.6, MCHC 31.8 L, RDW Std Deviation 46.2 H, RDW Coeff of Abundio 13.9, Plt Count 105 L, MPV 11.0, APTT 44.8 H, Sodium 138, Potassium 3.1 L, Chloride 105, Carbon Dioxide 26.0, Anion Gap 7, BUN 18, Creatinine 0.83, Estim Creat Clear Calc 43.97, Est GFR (MDRD) Af Amer 85, Est GFR (MDRD) Non-Af 70, BUN/Creatinine Ratio 21.6 H, Glucose 109 H, Calcium 8.1 L Microbiology: Microbiology 02/02/23 17:23 Blood Culture (Wb) - No Site/Description Given Blood Culture - Preliminary No growth in 48 hours. 02/02/23 18:53 Blood Culture (Wb) - Arm Right Blood Culture - Preliminary No growth in 48 hours. 02/02/23 12:30 Urine, Clean Catch Urine Culture - Final Mixed Gram Pos & Gram Neg Org D/C Instructions Discharge Diet: No restrictions Call your doctor if your incision/area has: Continuous Slow Oozing, Increased Pain/ Swelling, Increased Redness and Foul Smelling Discharge Call your doctor if you observe: Fever of 101 or Higher, Numbness or Tingling, Shortness of breath, Dizziness, Calf discomfort and Uncontrolled pain Please Follow Up With: Mo Vides MD Meaningful Use Info Meaningful Use Diagnoses (Choose all that apply): None applicable Discharge Plan Admission Admit Date/Time: 02/02/23 15:14 Primary Reason for Your Visit: stone with infection Attending Provider: Vega Pisano Primary Care Provider: Chauncey Lu Consulting Providers: Amelia Vickers; Raymond Li; Mo Vides Discharge Orders/Prescriptions Prescriptions: No Action multivitamin [Multiple Vitamins] tablet 1 tab PO DAILY ascorbic acid (vitamin C) [Vitamin C] 500 mg Tablet Extended Release 500 mg PO DAILY cholecalciferol (vitamin D3) [Vitamin D3] 25 mcg (1,000 unit) Capsule 25 mcg PO DAILY Referrals / Follow Up: Chauncey Lu DO [Primary Care Provider] - Disposition Discharge Orders: Discharge Patient (Routine); Ordered 02/05/23 Ordered By: Dr. Mo Vides
--- NOTE | 2023-02-05 16:18 | CASEMGMT ---
Patient has order to discharge. RN CM in to discuss needs at discharge. Patient had dementia, at bedside. denies needs at discharge and is able to assist patient with care. aware to follow-up with PCP should patient need HHC or DME in the future. had no further questions or concerns at this time.
--- NOTE | 2023-02-05 17:37 | NURSING ---
sent patient home with metoprolol 25mg to take paola galindo will call script tomorrow am
== END 2023-02-05 17:20 | disposition home or self-care (01) | DRG 854 ==
LOC: ED 14:09 → MS3 14:57 → PCU 02-05 07:29 → MS3 02-05 11:20
PROVIDERS: Internal Medicine; Admitting Provider Urology; Emergency Provider Emergency Medicine; PCP Student in an Organized Health Care Education/Training Program; Visit Provider Internal Medicine
PROC: 0T778DZ Dilation of Left Ureter with Intraluminal Device, Via Natural or Artificial Opening Endoscopic (ICD-10-PCS; principal; 2023-02-02 14:45)
DX: A41.9 Sepsis, unspecified organism (principal); N17.9 Acute kidney failure, unspecified; N13.6 Pyonephrosis; I48.0 Paroxysmal atrial fibrillation; E78.5 Hyperlipidemia, unspecified; K21.9 Gastro-esophageal reflux disease without esophagitis; I44.7 Left bundle-branch block, unspecified; I25.10 Atherosclerotic heart disease of native coronary artery without angina pectoris; B96.89 Other specified bacterial agents as the cause of diseases classified elsewhere; R77.8 Other specified abnormalities of plasma proteins
CPT/HCPCS: 36415; 36600; 71045; 71275; 74177; 76000; 80048; 80053; 81001; 82803; 83605; 83880; 84484; 85025; 85027; 85379; 85730; 87040; 87086; 87088; 93005; 93306; 93458; 94002; 94668; 94762; 97110; 97162; 97165; 97530; 97535; 99152; 99153; 99284; J7030; J7040; J7050; J7120; Q9957; Q9967; A4216; C1769; C1894; C2617; C8929; J1940; J2405